=== PATIENT | male | born 1950 | race Caucasian/White ===

== ENCOUNTER → 2017-12-06 15:01 | Outpatient (CLI) | payer MEDICARE, OTHER, SELFPAY ==
--- NOTE | 2017-12-06 15:05 | DI.RAD.S_ITS ---
PROCEDURE: XR KNEE LT 3V INDICATIONS: knee pain after trauma TECHNIQUE: 3 views of the knee were acquired. COMPARISON: [facility], CR, XR KNEE RT 3V, 12/06/2017, 14:43. FINDINGS: Bones: No fractures or dislocations. No suspicious bony lesions. Medial compartment joint space narrowing. Marginal spurs of the posterior patella. Soft tissues: No joint effusion. There is an oval calcified density posterior to the tibial plateau, potentially intracapsular. IMPRESSION: 1. No joint effusion or fracture deformity. 2. 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 Possible posterior loose body. Dictated by: Wyatt Reyes M.D. on 12/06/2017 at 15:49 Approved by: Wyatt Reyes M.D. on 12/06/2017 at 15:51
--- NOTE | 2017-12-06 15:05 | DI.RAD.S_ITS ---
PROCEDURE: XR KNEE RT 3V INDICATIONS: knee pain, no trauma TECHNIQUE: 3 views of the knee were acquired. COMPARISON: None. FINDINGS: Bones: No fractures or dislocations. No suspicious bony lesions. Medial compartment disc space narrowing. Degenerative marginal bone spurs posterior patella. Soft tissues: No joint effusion. No suspicious soft tissue calcifications. IMPRESSION: 1. No joint effusion or fracture deformity. 2. Degenerative joint disease femoral patellar and medial compartments. Dictated by: Wyatt Reyes M.D. on 12/06/2017 at 15:47 Approved by: Wyatt Reyes M.D. on 12/06/2017 at 15:49
== END ==
PROVIDERS: PCP Family Medicine; Visit Provider Family Medicine
DX: M17.0 Bilateral primary osteoarthritis of knee (principal); M25.562 Pain in left knee; M25.561 Pain in right knee
CPT/HCPCS: 73562

== ENCOUNTER 2017-12-30 15:15 | Emergency (ER) | payer MEDICARE, OTHER, SELFPAY ==
--- NOTE | 2017-12-30 15:20 | DI.CT.S_ITS ---
PROCEDURE: CT HEAD/BRAIN WO CON INDICATIONS: fall, hit head, on coumadin TECHNIQUE: Noncontrast 4.5 mm thick angled axial sections acquired from the foramen magnum to the vertex, with coronal and sagittal reformats. For radiation dose reduction, the following was used: automated exposure control, adjustment of mA and/or kV according to patient size. COMPARISON: None. FINDINGS: Image quality: Excellent. CSF spaces: Basal cisterns are patent. No extra-axial fluid collections. The ventricles are symmetric in size and shape. Brain: No intracranial bleeds or masses. There is cerebral volume loss for age, with resultant ventricular and sulcal prominence. There are periventricular and deep white matter chronic small vessel ischemic changes. There is intracranial internal carotid artery atherosclerosis. Skull and face: Calvarium and visualized facial bones appear intact, without suspicious lesions. Sinuses: Visualized sinuses and mastoids are clear. IMPRESSION: No acute intracranial abnormality. Dictated by: Cele Rod M.D. on 12/30/2017 at 15:42 Approved by: Cele Rod M.D. on 12/30/2017 at 15:43
[2017-12-30 15:22] VITALS: BP 177/84; PULSE 63; RESP 14; TEMP 36.7; O2SAT 100; BMI 32.7
[2017-12-30 16:01] LABS: Hemoglobin 15.2 g/dL (13.5-17.5); Mean Corpuscular HGB Conc 34.6 % (30-36); Mean Corpuscular Hemoglobin 30.6 PG (26-34); Mean Corpuscular Volume 88.4 fL (80-100); Platelet Count 135 X10^3/uL (150-400); Red Blood Cell Count 4.97 X10^6/uL (4.5-5.9); Red Cell Distribution Width 13.5 % (11.6-14.8); White Blood Cell Count 7.2 X10^3/uL (4.5-11.0)
[2017-12-30 16:11] LABS: INR 2.8 (0.9-1.3); Prothrombin Time 30.6 SECONDS (10.1-12.7)
[2017-12-30 16:14] LABS: Alanine Aminotransferase 43 IU/L (21-72); Albumin Globulin Ratio 1.8 (1.0-2.8); Alkaline Phosphatase 78 U/L (38-126); Aspartate Aminotransferase 26 IU/L (17-59); BUN Creatinine Ratio 27.8 (6-22); Bilirubin Total 0.8 mg/dL (0.2-1.3); Blood Urea Nitrogen 25 mg/dL (9-20); Calcium 9.1 mg/dL (8.4-10.2); Carbon Dioxide 32 mmol/L (22-32); Chloride 106 mmol/L (98-107); Estimated Glomerular Filt Rate > 60.0 mL/min (>60); Globulin 2.2 g/dL (1.7-4.1); Glucose 161 mg/dL (80-110); HEMOLYSIS < 15 (0-50); Potassium 4.6 mmol/L (3.4-5.1); Sodium 143 mmol/L (137-145); Total Protein 6.2 g/dL (6.3-8.2)
[2017-12-30 16:33] VITALS: BP 143/85; PULSE 63; RESP 14; O2SAT 100
[2017-12-30] MEDS: TET,DIPH,PERTUSS(ACELL),VAC/PF 0.5 ML SYRINGE IM (16:42)
--- NOTE | 2017-12-30 16:48 | ED.FALL ---
HPI - Fall <Sola Guillermo PA-C - Last Filed: 12/30/17 21:46> General Chief Complaint: Trauma Stated Complaint: Head injury, laceration, fall. 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 He had a wound there that has been bleeding quite profusely. He states he saw stars briefly, but did not pass out. He denies any headache currently but did have some initially, vision change, nausea, or vomiting. States he has been walking and talking normally afterwards. He denies any other pain or injury. His states that his head was bleeding profusely initially and she could not tell where, so he was transported here by ambulance Related Data Home Medications Medication Instructions Recorded Confirmed losartan [Cozaar] 100 mg PO QDAY #0 02/12/16 11/30/17 carvedilol [Coreg] 3.125 mg PO BID #180 07/25/17 11/30/17 Previous Rx's Medication Instructions Recorded atorvastatin [Lipitor] 10 mg PO HS #30 tab 02/13/16 warfarin 5 mg tablet 5 mg PO SEE INSTRUCTIONS #30 tab 10/26/17 sildenafil (antihypertensive) 20 20 mg PO DAILY PRN #10 tab 11/30/17 mg tablet tamsulosin 0.4 mg capsule 0.4 mg PO DAILY #90 cap 11/30/17 acetaminophen-codeine 1 tab PO Q4-6H PRN #5 tab 12/30/17 Allergies Allergy/AdvReac Type Severity Reaction Status Date / Time venom-honey bee Allergy Unknown Verified 12/30/17 15:26 [BEE VENOM (HONEY BEE)] lisinopril [LISINOPRIL] AdvReac Mild COUGH Verified 12/30/17 15:26 Review of Systems <Sola Guillermo PA-C - Last Filed: 12/30/17 21:46> Review of Systems All systems reviewed & are unremarkable except as noted in HPI and below Exam <Sola Guillermo PA-C - Last Filed: 12/30/17 21:46> Narrative Exam Narrative: GENERAL APPEARANCE: Patient sitting comfortably, in no distress. HEENT: PERRL, EOMI NECK: Supple LUNGS: Clear to auscultation bilaterally. HEART: Rate and rhythm regular without murmur, normal S1 and S2, no S3 or S4. NEUROLOGIC: Alert and oriented, normal speech and coordination. MUSCULOSKELETAL: Full Csp AROM, no TTP DERMATOLOGIC: L. restorationist there is a 4cm slightly jagged, curved lac, 4mm maximal depth, 0-3mm gap, bleeding from the rostral portion. No other wounds, no eccymoses visualized Initial Vital Signs Initial Vital Signs: Vital Signs Temperature 98.1 F 12/30/17 15:22 Pulse Rate 63 12/30/17 15:22 Respiratory Rate 14 12/30/17 15:22 Blood Pressure 177/84 H 12/30/17 15:22 Pulse Oximetry 100 12/30/17 15:22 <Tyler Resendiz MD - Last Filed: 12/31/17 07:43> Initial Vital Signs Initial Vital Signs: Vital Signs Temperature 98.1 F 12/30/17 15:22 Pulse Rate 63 12/30/17 15:22 Respiratory Rate 14 12/30/17 15:22 Blood Pressure 177/84 H 12/30/17 15:22 Pulse Oximetry 100 12/30/17 15:22 Procedures <Sola Guillermo PA-C - Last Filed: 12/30/17 21:46> Laceration Repair Laceration 1: Site: face Side (If applicable): left Size (cm): 4 Description: linear, irregular and clean Depth: simple, single layer Local Anesthetic: lidocaine 1% and with epi Amount of anesthesia used (mL): 5 Pre-repair: wound explored, irrigated extensively and deep structures intact Skin layer closed with: nylon Size (cm): 5-0 Number of sutures: 8 Technique: simple, interrupted Course <REINA Valdes Last Filed: 12/30/17 21:46> Orders Ordered: Discontinued Medications Diphtheria/Tetanus/Acell Pertussis (Adacel) 0.5 ml IM .ONCE ONE Stop: 12/30/17 15:22 Last Admin: 12/30/17 16:42 Dose: 0.5 ml Vital Signs - 8 hr 12/30/17 15:22 12/30/17 16:33 12/30/17 18:33 Temperature 98.1 F 97.9 F Pulse Rate 63 63 59 L Respiratory Rate 14 14 18 Blood Pressure 177/84 H 141/86 H Blood Pressure [Left Arm] 143/85 H Pulse Oximetry 100 100 100 <Tyler Resendiz MD - Last Filed: 12/31/17 07:43> Orders Ordered: Discontinued Medications Diphtheria/Tetanus/Acell Pertussis (Adacel) 0.5 ml IM .ONCE ONE Stop: 12/30/17 15:22 Last Admin: 12/30/17 16:42 Dose: 0.5 ml Vital Signs - 8 hr 12/30/17 15:22 12/30/17 16:33 12/30/17 18:33 Temperature 98.1 F 97.9 F Pulse Rate 63 63 59 L Respiratory Rate 14 14 18 Blood Pressure 177/84 H 141/86 H Blood Pressure [Left Arm] 143/85 H Pulse Oximetry 100 100 100 MDM - Fall <Sola Guillermo PA-C - Last Filed: 12/30/17 21:46> Lab Data Result diagrams: 12/30/17 15:50 12/30/17 15:50 Lab Results 12/30/17 12/30/17 12/30/17 Range/Units 15:50 15:50 15:50 WBC 7.2 (4.5-11.0) X10^3/uL RBC 4.97 (4.5-5.9) X10^6/uL Hgb 15.2 (13.5-17.5) g/dL Hct 44.0 (41-53) % MCV 88.4 (80-100) fL MCH 30.6 (26-34) PG MCHC 34.6 (30-36) % RDW 13.5 (11.6-14.8) % Plt Count 135 L (150-400) X10^3/uL Total Counted 100 Seg Neutrophils % 74.0 H (38-70) % Band Neutrophils % 0.0 L (3-7) % Lymphocytes % (Manual) 16.0 L (25-45) % Monocytes % (Manual) 6.0 (2-11) % Eosinophils % (Manual) 4.0 (2-4) % Basophils % (Manual) 0.0 (0-1) % Neutrophils # (Manual) 5328 (2885-5414) /uL RBC Morphology Normal morphology PT 30.6 H (10.1-12.7) SECONDS INR 2.8 H (0.9-1.3) Sodium 143 (137-145) mmol/L Potassium 4.6 (3.4-5.1) mmol/L Chloride 106 (98-107) mmol/L Carbon Dioxide 32 (22-32) mmol/L BUN 25 H (9-20) mg/dL Creatinine 0.90 (0.66-1.25) mg/dL Estimated GFR > 60.0 (>60) mL/min BUN/Creatinine Ratio 27.8 H (6-22) Glucose 161 H (80-110) mg/dL Calcium 9.1 (8.4-10.2) mg/dL Total Bilirubin 0.8 (0.2-1.3) mg/dL AST 26 (17-59) IU/L ALT 43 (21-72) IU/L Alkaline Phosphatase 78 (38-126) U/L Total Protein 6.2 L (6.3-8.2) g/dL Albumin 4.0 (3.5-5.0) g/dL Globulin 2.2 (1.7-4.1) g/dL Albumin/Globulin Ratio 1.8 (1.0-2.8) Imaging Data CT scan - head: Radiologist's impression: [place] [address] CT Scan Report Signed Patient: Ravindra Wise MR#: [id number] : 1950 Acct:[id number] Age/Sex: 67 / M Date of Service: 12/30/17 Loc: ED Accession Number: [id number] Procedure: CT head/brain wo con Ordering Provider: Tyler Resendiz M.D. PROCEDURE: CT HEAD/BRAIN WO CON INDICATIONS: fall, hit head, on coumadin TECHNIQUE: Noncontrast 4.5 mm thick angled axial sections acquired from the foramen magnum to the vertex, with coronal and sagittal reformats. For radiation dose reduction, the following was used: automated exposure control, adjustment of mA and/or kV according to patient size. COMPARISON: None. FINDINGS: Image quality: Excellent. CSF spaces: Basal cisterns are patent. No extra-axial fluid collections. The ventricles are symmetric in size and shape. Brain: No intracranial bleeds or masses. There is cerebral volume loss for age, with resultant ventricular and sulcal prominence. There are periventricular and deep white matter chronic small vessel ischemic changes. There is intracranial internal carotid artery atherosclerosis. Skull and face: Calvarium and visualized facial bones appear intact, without suspicious lesions. Sinuses: Visualized sinuses and mastoids are clear. IMPRESSION: No acute intracranial abnormality. Dictated by: Cele Rod M.D. on 12/30/2017 at 15:42 Approved by: Cele Rod M.D. on 12/30/2017 at 15:43 ECG Data Attestation: I personally reviewed and interpreted this ECG as follows: (sinus diaz, rate 56, borderline LAD) <Tyler Resendiz MD - Last Filed: 12/31/17 07:43> Lab Data Lab Results 12/30/17 12/30/17 12/30/17 Range/Units 15:50 15:50 15:50 WBC 7.2 (4.5-11.0) X10^3/uL RBC 4.97 (4.5-5.9) X10^6/uL Hgb 15.2 (13.5-17.5) g/dL Hct 44.0 (41-53) % MCV 88.4 (80-100) fL MCH 30.6 (26-34) PG MCHC 34.6 (30-36) % RDW 13.5 (11.6-14.8) % Plt Count 135 L (150-400) X10^3/uL Total Counted 100 Seg Neutrophils % 74.0 H (38-70) % Band Neutrophils % 0.0 L (3-7) % Lymphocytes % (Manual) 16.0 L (25-45) % Monocytes % (Manual) 6.0 (2-11) % Eosinophils % (Manual) 4.0 (2-4) % Basophils % (Manual) 0.0 (0-1) % Neutrophils # (Manual) 5328 (1833-9657) /uL RBC Morphology Normal morphology PT 30.6 H (10.1-12.7) SECONDS INR 2.8 H (0.9-1.3) Sodium 143 (137-145) mmol/L Potassium 4.6 (3.4-5.1) mmol/L Chloride 106 (98-107) mmol/L Carbon Dioxide 32 (22-32) mmol/L BUN 25 H (9-20) mg/dL Creatinine 0.90 (0.66-1.25) mg/dL Estimated GFR > 60.0 (>60) mL/min BUN/Creatinine Ratio 27.8 H (6-22) Glucose 161 H (80-110) mg/dL Calcium 9.1 (8.4-10.2) mg/dL Total Bilirubin 0.8 (0.2-1.3) mg/dL AST 26 (17-59) IU/L ALT 43 (21-72) IU/L Alkaline Phosphatase 78 (38-126) U/L Total Protein 6.2 L (6.3-8.2) g/dL Albumin 4.0 (3.5-5.0) g/dL Globulin 2.2 (1.7-4.1) g/dL Albumin/Globulin Ratio 1.8 (1.0-2.8) Discharge Plan Departure Patient Disposition: Home Clinical Impression: Laceration of scalp, Concussion without loss of consciousness, initial encounter Discharge Date/Time: 12/30/17 18:35 Interventions: ED Discharge Assessment Last Done: 12/30/17 18:33 Instructions: DI for Concussion, DI for Laceration Repair Activity Restrictions/Additional Instructions: Please keep your sutures clean and dry, you may briefly rinse them if showering. You should return if any acutely worsening symptoms, or new symptoms such as vomiting, worsening headache, vision change or confusion as we talked about. You may have a mild concussion even though you did not lose consciousness, so I have given you instructions for this. You can take Tylenol if needed for headache, or Tylenol with codeine if more severe this evening. Do not drive if you take that as it may make you sleepy. If you are feeling normal, you can resume your usual activites, but if you have headache, you should take it easy and be more gradual about this. Prescriptions: New acetaminophen-codeine 300-30 mg tablet 1 tab PO Q4-6H PRN (Reason: pain) Qty: 5 RF: 0 No Action sildenafil (antihypertensive) 20 mg tablet 20 mg PO DAILY PRN (Reason: sexual activity) Qty: 10 RF: 0 tamsulosin 0.4 mg capsule,extended release 24hr 0.4 mg PO DAILY Qty: 90 RF: 1 losartan [Cozaar] 100 MG tablet 100 mg PO QDAY Qty: 0 RF: 0 atorvastatin [Lipitor] 10 MG tablet 10 mg PO HS Qty: 30 RF: 0 carvedilol [Coreg] 3.125 MG tablet 3.125 mg PO BID Qty: 180 RF: 0 warfarin [Coumadin] 5 mg tablet 5 mg PO SEE INSTRUCTIONS Qty: 30 RF: 0 Referrals: Max Amador MD [Primary Care Provider] - <Tyler Resendiz MD - Last Filed: 12/31/17 07:43> Sign Out Provider Sign Out Attestation: The PA/PRESS MAINTAINER functioned independently for the care of this pt, I was available, but not asked to participate in care. I am unable to determine appropriateness of management without personally examining the pt.
[2017-12-30 17:48] LABS: Neutrophils Absolute Manual 5328 /uL (3000-5900); Total Cells Counted 100
[2017-12-30 17:49] LABS: RBC Morphology Normal Morphology
[2017-12-30 18:33] VITALS: BP 141/86; PULSE 59; RESP 18; TEMP 36.6; O2SAT 100
== END 2017-12-30 18:35 | disposition home or self-care (01) ==
PROVIDERS: Emergency Medicine; Emergency Provider Internal Medicine; PCP Family Medicine
DX: S01.81XA Laceration without foreign body of other part of head, initial encounter (principal); S06.0X0A Concussion without loss of consciousness, initial encounter; W01.198A Fall on same level from slipping, tripping and stumbling with subsequent striking against other object, initial encounter
CPT/HCPCS: 12013; 36415; 70450; 80053; 85025; 85610; 90471; 93005; 93010; 99283; 99285; 90715

== ENCOUNTER 2018-01-06 18:13 | Emergency (ER) | payer MEDICARE, OTHER, SELFPAY ==
[2018-01-06] VITALS (8 sets, daily range): BP systolic 111–128; BP diastolic 76–87; PULSE 80–140; RESP 12–21; TEMP 36.7; O2SAT 96–100; BMI 32.3
--- NOTE | 2018-01-06 18:23 | ED.ARRPALP ---
HPI - Arrhythmia/Palpitations General Chief Complaint: Arrhythmia/Palpitations Stated Complaint: AFIB Time Seen by Provider: 01/06/18 18:23 Source: patient and family Mode of arrival: ambulatory Limitations: no limitations History of Present Illness HPI narrative: 67-year-old male with history of AFib (on Coumadin) presents to the emergency department with his in the chief complaint of sudden onset of rapid AFib 30 min prior to arrival. He admits to palpitations and some shortness of breath with dizziness but denies any profound shortness of breath or chest. He has been cardioverted 3 times in the past 3 months. He has been on Coumadin for the past few months and denies any dosing change or missed doses. He sees Cardiology in [place] complaint: rapid heart beat, heart racing, palpitations, irregular heart beat and atrial fibrillation Onset (ago): minute(s) Duration: constant Severity: moderate Context: occurred during rest Arrhythmia history: atrial fibrillation Associated symptoms: shortness of breath Related Data Home Medications Medication Instructions Recorded Confirmed losartan [Cozaar] 100 mg PO QDAY #0 02/12/16 11/30/17 carvedilol [Coreg] 3.125 mg PO BID #180 07/25/17 11/30/17 Previous Rx's Medication Instructions Recorded atorvastatin [Lipitor] 10 mg PO HS #30 tab 02/13/16 sildenafil (antihypertensive) 20 20 mg PO DAILY PRN #10 tab 11/30/17 mg tablet tamsulosin 0.4 mg capsule 0.4 mg PO DAILY #90 cap 11/30/17 acetaminophen-codeine 1 tab PO Q4-6H PRN #5 tab 12/30/17 warfarin 5 mg tablet 5 mg PO SEE INSTRUCTIONS #30 tab 01/05/18 Allergies Allergy/AdvReac Type Severity Reaction Status Date / Time venom-honey bee Allergy Unknown Verified 12/30/17 15:26 [BEE VENOM (HONEY BEE)] lisinopril [LISINOPRIL] AdvReac Mild COUGH Verified 12/30/17 15:26 Review of Systems Review of Systems All systems reviewed & are unremarkable except as noted in HPI and below Constitutional Denies chills, Reports fatigue, Denies fever(s), Denies lethargy and Reports weakness Eyes Denies change in vision, Denies eye discharge, Denies irritation and Denies loss of vision ENT Ears, Nose, Mouth, and Throat: Denies change in voice, Denies neck pain and Denies sore throat Cardiovascular Denies chest pain, Reports irregular heart rhythm, Reports lightheadedness, Denies palpitations, Reports dyspnea, Denies dyspnea on exertion and Denies orthopnea Respiratory Denies cough, Reports dyspnea, Denies dyspnea on exertion and Denies wheezing Gastrointestinal Gastrointestinal: Denies abdominal pain, Denies change in bowel habits, Denies diarrhea, Denies nausea and Denies vomiting Genitourinary Denies hematuria, Denies flank pain, Denies urinary incontinence and Denies urinary urgency Musculoskeletal Denies neck pain Integumentary/Breasts Denies pruritus, Denies erythema, Denies rash and Denies wounds Neurologic Denies confusion, Denies loss of vision and Reports weakness Psychiatric Denies anxiety, Denies confusion, Denies depression, Denies homicidal ideation and Denies suicidal ideation Endocrine Reports fatigue and Denies palpitations Hematologic/Lymphatic Denies easy bruising Allergic/Immunologic Denies wheezing [facility] Medical History Bilateral knee pain (Chronic) BPH (benign prostatic hyperplasia) (Chronic) Erectile dysfunction (Chronic) Tinnitus of both ears (Chronic Unknown) Cardiomyopathy (Chronic Unknown) Atrial fibrillation (Chronic Unknown) Mitral valve regurgitation (Resolved Unknown) Colon polyps (Resolved Unknown) Hyperlipemia (Chronic Unknown) Hypertension (Chronic Unknown) Sleep apnea (Chronic Unknown) Surgical History Hx of right knee surgery (Resolved 12/2009) Hx of mitral valve repair (Resolved 04/2008) Family History Father No problems noted. Mother Cancer Diabetes mellitus Grandfather Diabetes mellitus Grandmother No problems noted. Grandfather No problems noted. Social History Smoking Status: Never smoker alcohol intake: never substance use type: does not use Exam Narrative Exam Narrative: 67-year-old male resting in room but obviously uncomfortable and in mild distress Initial Vital Signs Initial Vital Signs: Vital Signs Temperature 98.1 F 01/06/18 18:23 Pulse Rate 134 H 01/06/18 18:23 Respiratory Rate 21 01/06/18 18:23 Blood Pressure 118/80 01/06/18 18:23 Pulse Oximetry 97 01/06/18 18:23 Const General: cooperative, well developed and in distress Nutritional Appearance: well nourished Orientation: alert, awake, oriented x3 and not confused [facility] Head: normocephalic and atraumatic Ears: external ears normal and TM's normal bilaterally Nose: external nose normal and No nasal discharge Face and sinus: sinuses nontender, face symmetric, no sinus tenderness and No dry mucous membranes Mouth: oral mucosae normal and moist mucous membranes Teeth and gingiva: dentition normal Throat: tonsils normal and uvula midline Chest Chest: normal inspection of the chest Resp Effort & Inspection: normal respiratory effort, able to speak in complete sentences, no respiratory distress and no use of accessory muscles Auscultation: clear to auscultation bilaterally, no rales, no rhonchi and no wheezes Cardio Rate: tachycardic Rhythm: abnormal rhythm GI Inspection: non-distended Palpation: soft, no hepatosplenomegaly, No guarding, No pulsatile mass and No tender Auscultation: normal bowel sounds Back/Spine/Pelvis Back: No CVA tenderness Cervical Spine: cervical ROM normal and No pain with cervical ROM Thoracic/Lumbar Spine: thoracic and lumbar spine normal to inspection Skin General: no rashes or lesions noted, No jaundice and No petechiae Neuro General: alert, oriented x3, gait normal and no focal motor deficits Speech: speech normal Psych Appearance: well kempt Mental Status: mental status grossly normal Attitude: cooperative Thought Content: normal and suicidality Judgment: judgment good Procedures Procedural Sedation Patient Age: Patient is 5yrs or older Indication: cardioversion ASA Class: II Mallampati Airway Classification: Class II Preparation: personnel monitor applied, pulse oximeter, capnometry used, supplemental O2 applied, suction/airway equipment at bedside and IV secured IV Propofol dose (mg): 60 Time of Sedation (Min): 10 ED Sedation Level: Moderate (Concious) Patient Tolerated Procedure: Well Complications: none Additional Comments: Electrical Cardioversion: Indication: [Rapid AFib] A time-out was completed verifying correct patient, procedure and site. Informed consent was obtained. The patient was judged to be a satisfactory for the procedure. An intravenous access was established. Monitoring equipment was set-up. The resuscitative cart was nearby. Anesthesia: The patient was given an intravenous dose of [propofol 60 mg IVP] After satisfactory anesthesia was achieved, the procedure was performed. The paddles were placed in the standard position. Synchronized, direct current electrical cardioversion was performed with [200 joules which converted to a sinus rhythm for about 1 min before returning to AFib. He was administered a 2nd cardioversion at 200 joules which resolved the AFib in the family]. The patient tolerated the procedure well. There were no complications. Post Procedure: Successful cardioversion [was achieved.] Post procedure cardiac monitoring demonstrated []. Course Orders Ordered: ED Orders 01/06/18 18:20 EKG-12 Lead Routine 01/06/18 18:30 Basic Metabolic Panel Stat Complete Blood Count AUTO DIFF Stat Magnesium Stat Prothrombin Time INR Stat Thyroid Stimulating Hormone Stat Troponin & CK Cardiac Panel Stat 01/06/18 18:49 EKG-12 Lead Stat Discontinued Medications Sodium Chloride (Normal Saline 0.9%) 1,000 mls @ 150 mls/hr IV CONT RADHA Last Infusion: 01/06/18 20:17 Dose: 0 mls/hr Admin: 01/06/18 19:39 Dose: 150 mls/hr Propofol (Diprivan) 60 mg IV NOW ONE Stop: 01/06/18 19:38 Last Admin: 01/06/18 19:39 Dose: 60 mg Vital Signs - 8 hr 01/06/18 19:00 01/06/18 19:10 01/06/18 19:15 Pulse Rate 124 H 115 H 82 Respiratory Rate 12 Blood Pressure [Left Arm] 111/76 116/82 H 120/82 H Pulse Oximetry 100 01/06/18 19:20 01/06/18 19:30 01/06/18 19:43 Pulse Rate 81 80 88 Respiratory Rate 12 13 16 Blood Pressure [Left Arm] 128/86 H 125/87 H Pulse Oximetry 100 99 MDM - Arrhythmia/Palpitations Lab Data Result diagrams: 01/06/18 18:30 01/06/18 18:30 Lab Results 01/06/18 01/06/18 01/06/18 Range/Units 18:30 18:30 18:30 WBC 6.8 (4.5-11.0) X10^3/uL RBC 5.21 (4.5-5.9) X10^6/uL Hgb 15.8 (13.5-17.5) g/dL Hct 45.9 (41-53) % MCV 88.1 (80-100) fL MCH 30.3 (26-34) PG MCHC 34.3 (30-36) % RDW 13.6 (11.6-14.8) % Plt Count 151 (150-400) X10^3/uL Neut % (Auto) 64.3 (50-75) % Lymph % (Auto) 24.3 L (25-40) % [place] % (Auto) 8.8 (3-14) % Eos % (Auto) 1.8 L (2-4) % Baso % (Auto) 0.8 (0-2) % Neut # (Auto) 4400 (9291-0543) /uL PT 26.2 H (10.1-12.7) SECONDS INR 2.4 H (0.9-1.3) Sodium 144 (137-145) mmol/L Potassium 4.1 (3.4-5.1) mmol/L Chloride 107 (98-107) mmol/L Carbon Dioxide 27 (22-32) mmol/L BUN 28 H (9-20) mg/dL Creatinine 0.80 (0.66-1.25) mg/dL Estimated GFR > 60.0 (>60) mL/min BUN/Creatinine Ratio 35.0 H (6-22) Glucose 122 H (80-110) mg/dL Calcium 9.4 (8.4-10.2) mg/dL Magnesium 2.1 (1.6-2.3) mg/dL Total Creatine Kinase 176 H (55-170) U/L CK-MB (CK-2) 3.40 H (<2.37) ng/mL CK-MB (CK-2) Rel Index 1.9 (1.5-5.0) % Troponin I < 0.012 (0.01-0.034) ng/mL TSH (0.47-4.68) uIU/mL 01/06/18 Range/Units 18:30 WBC (4.5-11.0) X10^3/uL RBC (4.5-5.9) X10^6/uL Hgb (13.5-17.5) g/dL Hct (41-53) % MCV (80-100) fL MCH (26-34) PG MCHC (30-36) % RDW (11.6-14.8) % Plt Count (150-400) X10^3/uL Neut % (Auto) (50-75) % Lymph % (Auto) (25-40) % [place] % (Auto) (3-14) % Eos % (Auto) (2-4) % Baso % (Auto) (0-2) % Neut # (Auto) (7213-7912) /uL PT (10.1-12.7) SECONDS INR (0.9-1.3) Sodium (137-145) mmol/L Potassium (3.4-5.1) mmol/L Chloride (98-107) mmol/L Carbon Dioxide (22-32) mmol/L BUN (9-20) mg/dL Creatinine (0.66-1.25) mg/dL Estimated GFR (>60) mL/min BUN/Creatinine Ratio (6-22) Glucose (80-110) mg/dL Calcium (8.4-10.2) mg/dL Magnesium (1.6-2.3) mg/dL Total Creatine Kinase (55-170) U/L CK-MB (CK-2) (<2.37) ng/mL CK-MB (CK-2) Rel Index (1.5-5.0) % Troponin I (0.01-0.034) ng/mL TSH 2.94 (0.47-4.68) uIU/mL Discharge Plan Departure Patient Disposition: Home Clinical Impression: Atrial fibrillation with rapid ventricular response, Encounter for removal of sutures Discharge Date/Time: 01/06/18 20:18 Interventions: ED Discharge Assessment Last Done: 01/06/18 19:30 Instructions: DI for Atrial Fibrillation Activity Restrictions/Additional Instructions: *You have been diagnosed with [ atrial fibrillation with rapid response status post cardioversion, suture removal ] *What to do: *Take medications as directed *Follow up with your cultural centre manager in 2-3 days, call for an appointment. Let them know you were seen in the Emergency Department and that we ask that you be seen in follow up *Return to ER if you should have any new, worsening or concerning symptoms, such as [ recurrence of rapid atrial fibrillation, chest pain, shortness of breath, the sense of passing out or blacking out, other bothersome symptoms] Prescriptions: No Action sildenafil (antihypertensive) 20 mg tablet 20 mg PO DAILY PRN (Reason: sexual activity) Qty: 10 RF: 0 tamsulosin 0.4 mg capsule,extended release 24hr 0.4 mg PO DAILY Qty: 90 RF: 1 losartan [Cozaar] 100 MG tablet 100 mg PO QDAY Qty: 0 RF: 0 atorvastatin [Lipitor] 10 MG tablet 10 mg PO HS Qty: 30 RF: 0 carvedilol [Coreg] 3.125 MG tablet 3.125 mg PO BID Qty: 180 RF: 0 warfarin [Coumadin] 5 mg tablet 5 mg PO SEE INSTRUCTIONS Qty: 30 RF: 0 acetaminophen-codeine 300-30 mg tablet 1 tab PO Q4-6H PRN (Reason: pain) Qty: 5 RF: 0 Referrals: Max Amador MD [Primary Care Provider] - Jesús Mooney MD [Non-Staff] -
[2018-01-06 18:46] LABS: Add Manual Diff / Slide Review NO; Basophils Percent Auto 0.8 % (0-2); Eosinophils Percent Auto 1.8 % (2-4); Hematocrit 45.9 % (41-53); Hemoglobin 15.8 g/dL (13.5-17.5); Lymphocytes Percent Auto 24.3 % (25-40); Mean Corpuscular HGB Conc 34.3 % (30-36); Mean Corpuscular Hemoglobin 30.3 PG (26-34); Mean Corpuscular Volume 88.1 fL (80-100); Monocytes Percent Auto 8.8 % (3-14); Neutrophils Absolute Auto 4400 /uL (3000-5900); Neutrophils Percent Auto 64.3 % (50-75); Platelet Count 151 X10^3/uL (150-400); Red Blood Cell Count 5.21 X10^6/uL (4.5-5.9); Red Cell Distribution Width 13.6 % (11.6-14.8); White Blood Cell Count 6.8 X10^3/uL (4.5-11.0)
[2018-01-06 18:55] LABS: INR 2.4 (0.9-1.3); Prothrombin Time 26.2 SECONDS (10.1-12.7)
[2018-01-06 18:58] LABS: Blood Urea Nitrogen 28 mg/dL (9-20); Calcium 9.4 mg/dL (8.4-10.2); Carbon Dioxide 27 mmol/L (22-32); Chloride 107 mmol/L (98-107); Creatine Kinase 176 U/L (55-170); Estimated Glomerular Filt Rate > 60.0 mL/min (>60); Glucose 122 mg/dL (80-110); HEMOLYSIS < 15 (0-50); Magnesium 2.1 mg/dL (1.6-2.3); Potassium 4.1 mmol/L (3.4-5.1); Sodium 144 mmol/L (137-145)
[2018-01-06 19:13] LABS: CKMB % Relative Index 1.9 % (1.5-5.0)
[2018-01-06 19:15] LABS: Troponin I < 0.012 ng/mL (0.01-0.034)
[2018-01-06 19:29] LABS: Thyroid Stimulating Hormone 2.94 uIU/mL (0.47-4.68)
[2018-01-06] MEDS: SODIUM CHLORIDE 0.9% 1,000 ML 150 ML IV (19:39)
[2018-01-06] MEDS: PROPOFOL 200 MG/20 ML VIAL 60 MG IV (19:39)
--- NOTE | 2018-01-06 20:09 | PC.NURSE ---
cardioverion, pt cristóbal well. vs stable. cardioversion/sync x 2 at 200j, first one cardiovert to sr, only lasted a few minutes, second cardioversion. pt stated in sinus rythem, in room with this procedure per her request is an icu nurse/ grandson left room during procedure. pt awakened easily after procedure/ ekg done, pt ready for dc. let awake some more. alert. oriented and dc by 1930
== END 2018-01-06 20:18 | disposition home or self-care (01) ==
PROVIDERS: Emergency Provider Emergency Medicine; PCP Family Medicine
DX: I48.91 Unspecified atrial fibrillation (principal)
CPT/HCPCS: 80048; 82550; 82553; 83735; 84443; 84484; 85025; 85610; 92960; 93005; 93010; 93041; 94770; 96360; 99152; 99284; 99291; J2704

== ENCOUNTER 2018-09-29 06:59 | Emergency (ER) | payer MEDICARE, OTHER, SELFPAY ==
[2018-09-29 07:00] VITALS: BP 108/84; PULSE 81; PULSE 91; RESP 16; RESP 17; TEMP 36.7; O2SAT 97; O2SAT 98; BMI 32.3
--- NOTE | 2018-09-29 07:10 | ED.ARRPALP ---
HPI - Arrhythmia/Palpitations General Chief Complaint: Arrhythmia/Palpitations Stated Complaint: Afib Time Seen by Provider: 09/29/18 07:08 Source: patient, family and old records reviewed Mode of arrival: ambulatory Limitations: no limitations History of Present Illness HPI narrative: Patient is a 68-year-old male who presents with atrial fibrillation. He has a history of atrial fibrillation takes Coumadin. He says last night he has been in and out of AFib. He can usually tell when he is in AFib because he gets short of breath. Last evening he was actually extremely sweaty as well no real pain. He can feel his heart rate and it would be lower in the 80s and then he would feel it and it would be irregular and fast. He is currently in sinus rhythm on the monitor and on the EKG. However he did have a run of atrial fibrillation on the monitor show 140 lasting under 30 seconds. He says he overall does not feel well. MD complaint: rapid heart beat and skipped beats Arrhythmia history: atrial fibrillation Associated symptoms: diaphoresis Related Data Home Medications Medication Instructions Recorded Confirmed losartan [Cozaar] 100 mg PO QDAY #0 02/12/16 11/30/17 carvedilol [Coreg] 3.125 mg PO BID #180 07/25/17 11/30/17 Previous Rx's Medication Instructions Recorded atorvastatin [Lipitor] 10 mg PO HS #30 tab 02/13/16 sildenafil (antihypertensive) 20 20 mg PO DAILY PRN #10 tab 11/30/17 mg tablet acetaminophen-codeine 1 tab PO Q4-6H PRN #5 tab 12/30/17 warfarin 5 mg tablet 5 mg PO SEE INSTRUCTIONS #90 tab 07/23/18 tamsulosin 0.4 mg capsule 0.4 mg PO DAILY #90 cap 09/21/18 Allergies Allergy/AdvReac Type Severity Reaction Status Date / Time venom-honey bee Allergy Unknown Verified 12/30/17 15:26 [BEE VENOM (HONEY BEE)] lisinopril [LISINOPRIL] AdvReac Mild COUGH Verified 12/30/17 15:26 Review of Systems Review of Systems GENERAL: Denies chills, fatigue, malaise, fever, sweats, travel HEENT: Denies sinus pain, ear pain, sore throat, difficulty swallowing, neck pain RESPIRATORY: Denies dyspnea, cough, wheezing, hemoptysis, sputum. CARDIOVASCULAR: See HPI GASTROINTESTINAL: Denies nausea, vomiting, abdominal pain, diarrhea, constipation, melena. : Denies dysuria, frequency, incontinence, hematuria, urinary retention, flank pain. MUSCULOSKELETAL: Denies weakness, joint pain, or bony pain SKIN: No rash, no erythema, no pruritus NEUROLOGIC: Denies weakness, dizziness, headache, numbness, change in speech, confusion PSYCHIATRIC: No concerning psychosocial issues. 12 point review of systems is negative except for those stated above and HPI [facility] Medical History Bilateral knee pain (Chronic) BPH (benign prostatic hyperplasia) (Chronic) Erectile dysfunction (Chronic) Tinnitus of both ears (Chronic Unknown) Cardiomyopathy (Chronic Unknown) Atrial fibrillation (Chronic Unknown) Mitral valve regurgitation (Resolved Unknown) Colon polyps (Resolved Unknown) Hyperlipemia (Chronic Unknown) Hypertension (Chronic Unknown) Sleep apnea (Chronic Unknown) Surgical History Hx of right knee surgery (Resolved 12/2009) Hx of mitral valve repair (Resolved 04/2008) Family History Father No problems noted. Mother Cancer Diabetes mellitus Grandfather Diabetes mellitus Grandmother No problems noted. Grandfather No problems noted. Social History Smoking Status: Never smoker alcohol intake: never substance use type: does not use Family History Father No problems noted. Mother Cancer Diabetes mellitus Grandfather Diabetes mellitus Grandmother No problems noted. Grandfather No problems noted. Social History Smoking Status: Never smoker alcohol intake: never substance use type: does not use Exam Initial Vital Signs Initial Vital Signs: Vital Signs Temperature 98.0 F 09/29/18 07:00 Pulse Rate 91 H 09/29/18 07:00 Respiratory Rate 16 09/29/18 07:00 Blood Pressure 108/84 09/29/18 07:00 Pulse Oximetry 97 09/29/18 07:00 GENERAL: Alert male and in no acute distress. HEENT: Head atraumatic,EOMI, pupils reactive CARDIOVASCULAR: Regular rate and rhythm without murmurs, rubs or gallops. RESPIRATORY: Breath sounds equal bilaterally, no wheezes rales or rhonchi. ABDOMEN: Soft, nontender. Normoactive bowel sounds all 4 quadrants. No guarding or rebound. EXTREMITIES: Normal range of motion, no clubbing or edema. Neurovascularly intact NEUROLOGICAL: Alert and oriented x4.Normal gait and speech. Cranial nerves II through XII grossly intact. SKIN: Warm, dry, no laceration, no petechiae, no rashes or lesions. Course Orders Ordered: ED Orders 09/29/18 07:04 EKG-12 Lead Routine 09/29/18 07:15 B Type Natriuretic Peptide Stat Complete Blood Count AUTO DIFF Stat Comprehensive Metabolic Panel Stat Magnesium Stat Partial Thromboplastin Time Stat Prothrombin Time INR Stat Troponin & CK Cardiac Panel Stat 09/29/18 07:19 XR chest 1V Stat 09/29/18 08:10 EKG-12 Lead Stat Discontinued Medications Acetaminophen (Tylenol) 650 mg PO Q4HR PRN PRN Reason: As Needed for Fever/Mild Pain Last Admin: 09/29/18 09:06 Dose: 650 mg Sodium Chloride (Normal Saline 0.9%) 1,000 mls @ 1,000 mls/hr IV CONT RADHA Last Admin: 09/29/18 08:24 Dose: Not Given Sodium Chloride (Normal Saline 0.9%) 1,000 mls @ 150 mls/hr IV CONT RADHA Last Infusion: 09/29/18 09:35 Dose: 0 mls/hr Admin: 09/29/18 08:02 Dose: 150 mls/hr Nitroglycerin (Nitrostat) 0.4 mg SL NOW ONE Stop: 09/29/18 08:52 Last Admin: 09/29/18 09:02 Dose: 0.4 mg Vital Signs - 8 hr 09/29/18 07:00 09/29/18 08:00 09/29/18 09:00 Temperature 98.0 F Pulse Rate 81 78 83 Respiratory Rate 17 20 19 Blood Pressure 108/84 Blood Pressure [Left Arm] 108/84 94/67 114/83 Pulse Oximetry 98 97 97 09/29/18 09:02 09/29/18 09:09 09/29/18 09:36 Temperature Pulse Rate 78 87 76 Respiratory Rate 16 Blood Pressure 114/83 104/86 100/86 Blood Pressure [Left Arm] Pulse Oximetry 97 MDM - Arrhythmia/Palpitations Lab Data Result diagrams: 09/29/18 07:15 09/29/18 07:15 Lab Results 09/29/18 09/29/18 09/29/18 Range/Units 07:15 07:15 07:15 WBC 10.1 (4.5-11.0) X10^3/uL RBC 5.46 (4.5-5.9) X10^6/uL Hgb 16.6 (13.5-17.5) g/dL Hct 47.4 (41-53) % MCV 86.8 (80-100) fL MCH 30.5 (26-34) PG MCHC 35.1 (30-36) % RDW 13.8 (11.6-14.8) % Plt Count 155 (150-400) X10^3/uL Neut % (Auto) 70.4 (50-75) % Lymph % (Auto) 18.8 L (25-40) % [place] % (Auto) 9.2 (3-14) % Eos % (Auto) 0.9 L (2-4) % Baso % (Auto) 0.7 (0-2) % Neut # (Auto) 7100 H (3072-2167) /uL Lymph # (Auto) 1900 (0860-4272) /uL [place] # (Auto) 900 (0-900) /uL Eos # (Auto) 100 (0-450) /uL Baso # (Auto) 100 (0-100) /uL PT 27.4 H (10.1-12.7) SECONDS INR 2.3 H (0.9-1.3) APTT 44 H (26.4-36.2) SECONDS Sodium 138 (137-145) mmol/L Potassium 4.1 (3.4-5.1) mmol/L Chloride 103 (98-107) mmol/L Carbon Dioxide 24 (22-32) mmol/L BUN 18 (9-20) mg/dL Creatinine 0.70 (0.66-1.25) mg/dL Estimated GFR > 60.0 (>60) mL/min BUN/Creatinine Ratio 25.7 H (6-22) Glucose 159 H (80-110) mg/dL Calcium 9.2 (8.4-10.2) mg/dL Magnesium 2.1 (1.6-2.3) mg/dL Total Bilirubin 1.5 H (0.2-1.3) mg/dL AST 27 (17-59) IU/L ALT 36 (21-72) IU/L Alkaline Phosphatase 73 (38-126) U/L Total Creatine Kinase 169 (55-170) U/L CK-MB (CK-2) 12.30 H (<2.37) ng/mL CK-MB (CK-2) Rel Index 7.3 H* (1.5-5.0) % Troponin I 1.760 H* (0.01-0.034) ng/mL B-Natriuretic Peptide (<100) Total Protein 6.6 (6.3-8.2) g/dL Albumin 4.2 (3.5-5.0) g/dL Globulin 2.4 (1.7-4.1) g/dL Albumin/Globulin Ratio 1.8 (1.0-2.8) 09/29/18 Range/Units 07:15 WBC (4.5-11.0) X10^3/uL RBC (4.5-5.9) X10^6/uL Hgb (13.5-17.5) g/dL Hct (41-53) % MCV (80-100) fL MCH (26-34) PG MCHC (30-36) % RDW (11.6-14.8) % Plt Count (150-400) X10^3/uL Neut % (Auto) (50-75) % Lymph % (Auto) (25-40) % [place] % (Auto) (3-14) % Eos % (Auto) (2-4) % Baso % (Auto) (0-2) % Neut # (Auto) (0946-6956) /uL Lymph # (Auto) (2869-9783) /uL [place] # (Auto) (0-900) /uL Eos # (Auto) (0-450) /uL Baso # (Auto) (0-100) /uL PT (10.1-12.7) SECONDS INR (0.9-1.3) APTT (26.4-36.2) SECONDS Sodium (137-145) mmol/L Potassium (3.4-5.1) mmol/L Chloride (98-107) mmol/L Carbon Dioxide (22-32) mmol/L BUN (9-20) mg/dL Creatinine (0.66-1.25) mg/dL Estimated GFR (>60) mL/min BUN/Creatinine Ratio (6-22) Glucose (80-110) mg/dL Calcium (8.4-10.2) mg/dL Magnesium (1.6-2.3) mg/dL Total Bilirubin (0.2-1.3) mg/dL AST (17-59) IU/L ALT (21-72) IU/L Alkaline Phosphatase (38-126) U/L Total Creatine Kinase (55-170) U/L CK-MB (CK-2) (<2.37) ng/mL CK-MB (CK-2) Rel Index (1.5-5.0) % Troponin I (0.01-0.034) ng/mL B-Natriuretic Peptide 349 H (<100) Total Protein (6.3-8.2) g/dL Albumin (3.5-5.0) g/dL Globulin (1.7-4.1) g/dL Albumin/Globulin Ratio (1.0-2.8) Imaging Data Chest x-ray: Radiologist's impression: PROCEDURE: XR CHEST 1V INDICATIONS: chest pain TECHNIQUE: One view of the chest was acquired. COMPARISON: [facility], CHEST 1 VIEW, 02/12/2016, 11:57. FINDINGS: Surgical changes and devices: Postoperative changes of the chest are present related to median sternotomy of prior heart valve replacement. Lungs and pleura: Lungs are clear. No pleural effusions or pneumothorax. Mediastinum: Mediastinal contours appear normal. Heart size is normal. Bones and chest wall: No suspicious bony lesions. Degenerative changes of the spine and shoulders are not well characterized. Overlying soft tissues appear unremarkable. IMPRESSION: Stable chest. No acute cardiopulmonary process is suspected. Dictated by: Solo Cunningham M.D. on 09/29/2018 at 6:44 ECG Data Attestation: I personally reviewed and interpreted this ECG as follows: Prior ECG tracings: available for review Interpretation: EKG 1. Sinus rhythm rate [address] changes and no T-wave inversion Q-wave noted in septal leads. EKG 2. Sinus rhythm rate [address] changes similar to prior. MDM Narrative Medical decision making narrative: Patient has only had 1 run of atrial fibrillation which lasted under 30 seconds. He has been in sinus rhythm since then. He has been complaining of some shortness of breath but overall chest pain-free with a normal oxygen level. Troponin 1.76 which is positive. 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 Mooney in [place], unfortunately at [place] and [facility] do not have any beds. Patient's is requesting not to go to [facility] which does have beds.. Kia Rebollar, hospitalist has been updated patient's symptoms and test results. Patient said he had some mild chest tightness but not pain. He was given 1 nitroglycerin, but it seemed to give more of a headache. Patient is already anticoagulated on Coumadin INR 2.9 today. No recommendations for any further treatment at this time. Critical Care Time Critical Care Time: Yes Total Critical Care Time: 30 Attestation: The high probability of a clinically significant, sudden or life threatening deterioration of the [cardiovascular] system(s) required my full and direct attention, intervention and personal management. The aggregate critical care time was 30 minutes. This time is in addition to time spent performing reported procedures but includes the following: [x] Data Review and interpretation [x] Patient assessment and monitoring of vital signs [x] Documentation [x] Medication orders and management Discharge Plan Departure Patient Disposition: [facility] Clinical Impression: Non-ST elevated myocardial infarction Discharge Date/Time: 09/29/18 09:38 Interventions: ED Discharge Assessment Last Done: 09/29/18 09:36 Prescriptions: No Action sildenafil (antihypertensive) 20 mg tablet 20 mg PO DAILY PRN (Reason: sexual activity) Qty: 10 RF: 0 losartan [Cozaar] 100 MG tablet 100 mg PO QDAY Qty: 0 RF: 0 atorvastatin [Lipitor] 10 MG tablet 10 mg PO HS Qty: 30 RF: 0 carvedilol [Coreg] 3.125 MG tablet 3.125 mg PO BID Qty: 180 RF: 0 warfarin [Coumadin] 5 mg tablet 5 mg PO SEE INSTRUCTIONS Qty: 90 RF: 3 tamsulosin 0.4 mg capsule 0.4 mg PO DAILY Qty: 90 RF: 1 acetaminophen-codeine 300-30 mg tablet 1 tab PO Q4-6H PRN (Reason: pain) Qty: 5 RF: 0
--- NOTE | 2018-09-29 07:19 | DI.RAD.S_ITS ---
PROCEDURE: XR CHEST 1V INDICATIONS: chest pain TECHNIQUE: One view of the chest was acquired. COMPARISON: [facility], , CHEST 1 VIEW, 02/12/2016, 11:57. FINDINGS: Surgical changes and devices: Postoperative changes of the chest are present related to median sternotomy of prior heart valve replacement. Lungs and pleura: Lungs are clear. No pleural effusions or pneumothorax. Mediastinum: Mediastinal contours appear normal. Heart size is normal. Bones and chest wall: No suspicious bony lesions. Degenerative changes of the spine and shoulders are not well characterized. Overlying soft tissues appear unremarkable. IMPRESSION: Stable chest. No acute cardiopulmonary process is suspected. Dictated by: Solo Cunningham M.D. on 09/29/2018 at 6:44 Approved by: Solo Cunningham M.D. on 09/29/2018 at 6:46
[2018-09-29 07:31] LABS: Add Manual Diff / Slide Review NO; Basophils Absolute Auto 100 /uL (0-100); Basophils Percent Auto 0.7 % (0-2); Eosinophils Absolute Auto 100 /uL (0-450); Eosinophils Percent Auto 0.9 % (2-4); Hematocrit 47.4 % (41-53); Hemoglobin 16.6 g/dL (13.5-17.5); INR 2.3 (0.9-1.3); Lymphocytes Absolute Auto 1900 /uL (1100-4500); Lymphocytes Percent Auto 18.8 % (25-40); Mean Corpuscular HGB Conc 35.1 % (30-36); Mean Corpuscular Hemoglobin 30.5 PG (26-34); Mean Corpuscular Volume 86.8 fL (80-100); Monocytes Absolute Auto 900 /uL (0-900); Monocytes Percent Auto 9.2 % (3-14); Neutrophils Absolute Auto 7100 /uL (1500-7000); Neutrophils Percent Auto 70.4 % (50-75); Platelet Count 155 X10^3/uL (150-400); Prothrombin Time 27.4 SECONDS (10.1-12.7); Red Blood Cell Count 5.46 X10^6/uL (4.5-5.9); Red Cell Distribution Width 13.8 % (11.6-14.8); White Blood Cell Count 10.1 X10^3/uL (4.5-11.0)
[2018-09-29 07:33] LABS: PTT Partial Thromboplastin Tim 44 SECONDS (26.4-36.2)
[2018-09-29 07:35] LABS: Alanine Aminotransferase 36 IU/L (21-72); Albumin 4.2 g/dL (3.5-5.0); Albumin Globulin Ratio 1.8 (1.0-2.8); Alkaline Phosphatase 73 U/L (38-126); Aspartate Aminotransferase 27 IU/L (17-59); BUN Creatinine Ratio 25.7 (6-22); Bilirubin Total 1.5 mg/dL (0.2-1.3); Blood Urea Nitrogen 18 mg/dL (9-20); Calcium 9.2 mg/dL (8.4-10.2); Carbon Dioxide 24 mmol/L (22-32); Chloride 103 mmol/L (98-107); Creatine Kinase 169 U/L (55-170); Estimated Glomerular Filt Rate > 60.0 mL/min (>60); Globulin 2.4 g/dL (1.7-4.1); Glucose 159 mg/dL (80-110); HEMOLYSIS < 15 (0-50); Magnesium 2.1 mg/dL (1.6-2.3); Potassium 4.1 mmol/L (3.4-5.1); Sodium 138 mmol/L (137-145); Total Protein 6.6 g/dL (6.3-8.2)
[2018-09-29 08:00] VITALS: BP 94/67; PULSE 78; RESP 20; O2SAT 97
[2018-09-29] MEDS: SODIUM CHLORIDE 0.9% 1,000 ML 150 ML IV (08:02)
[2018-09-29 08:06] LABS: CKMB % Relative Index 7.3 % (1.5-5.0)
[2018-09-29 08:31] LABS: B Type Natriuretic Peptide 349 (<100)
--- NOTE | 2018-09-29 08:52 | PC.NURSE ---
Patient had mitral valve replacement with CHF incident after that. Also has A.fib and has been cardioverted here several times. States last night began having chest pressure, shortness of breath worse with lying flat, and feeling of palpitation radiating up into neck. States he thinks he is having an episode of A Fib. again however he checked his pulse at home and it has been normal.
--- NOTE | 2018-09-29 08:54 | PC.NURSE ---
0730 Patient had an episode of A. Fib. lasting less that 30 seconds which converted back to NSR. No change in symptoms, provider Tayla aware.
[2018-09-29 09:00] VITALS: BP 114/83; PULSE 83; RESP 19; O2SAT 97
[2018-09-29 09:02] VITALS: BP 114/83; PULSE 78
[2018-09-29] MEDS: NITROGLYCERIN 0.4 MG SL TAB SL (09:02)
[2018-09-29] MEDS: ACETAMINOPHEN 325 MG TABLET 650 MG PO (09:06)
[2018-09-29 09:09] VITALS: BP 104/86; PULSE 87
--- NOTE | 2018-09-29 09:19 | PC.NURSE ---
I attempted to call report to [facility] Castell[facility] at this time, she states she will call me back.
[2018-09-29 09:36] VITALS: BP 100/86; PULSE 76; RESP 16; O2SAT 97
== END 2018-09-29 09:38 | disposition short-term general hospital (02) ==
PROVIDERS: Emergency Provider Emergency Medicine
DX: I21.4 Non-ST elevation (NSTEMI) myocardial infarction (principal); I48.91 Unspecified atrial fibrillation; R61 Generalized hyperhidrosis; Z79.01 Long term (current) use of anticoagulants
CPT/HCPCS: 36591; 71045; 80053; 82550; 82553; 83735; 83880; 84484; 85025; 85610; 85730; 93005; 93010; 96360; 96361; 99283; 99285

== ENCOUNTER 2018-10-19 16:16 | Emergency (ER) | payer MEDICARE, OTHER, SELFPAY ==
[2018-10-19 16:15] VITALS: BP 128/77; PULSE 60; RESP 18; TEMP 36.4; O2SAT 98; BMI 30.8
--- NOTE | 2018-10-19 16:27 | ED.SOB ---
HPI - SOB/Dyspnea General Chief Complaint: Shortness of Breath/Dyspnea Stated Complaint: heart isssues, SOB Time Seen by Provider: 10/19/18 16:21 Source: patient and family Mode of arrival: ambulatory Limitations: no limitations History of Present Illness 68M nonsmoker with history of CAD and stenting last month presents with increased fatigue and palpitations over the past day. He denies any chest pain, N/V, diaphoresis. He had been feeling quite well until last night after cardiac rehab. He denies any other symptoms and is otherwise well and free of complaint. 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 Mooney out of [facility] in [place] but due to bed availability last month he was transferred to . MD Complaint: shortness of breath Onset (ago): hour(s) Severity: moderate Consistency/Duration: constant Relieving factors: rest Associated symptoms: denies other symptoms Treatment prior to arrival: none Related Data Home oxygen amount: none Home Medications Medication Instructions Recorded Confirmed losartan [Cozaar] 100 mg PO QDAY #0 02/12/16 11/30/17 carvedilol [Coreg] 3.125 mg PO BID #180 07/25/17 11/30/17 Previous Rx's Medication Instructions Recorded atorvastatin [Lipitor] 10 mg PO HS #30 tab 02/13/16 sildenafil (antihypertensive) 20 20 mg PO DAILY PRN #10 tab 11/30/17 mg tablet acetaminophen-codeine 1 tab PO Q4-6H PRN #5 tab 12/30/17 warfarin 5 mg tablet 5 mg PO SEE INSTRUCTIONS #90 tab 07/23/18 tamsulosin 0.4 mg capsule 0.4 mg PO DAILY #90 cap 09/21/18 Allergies Allergy/AdvReac Type Severity Reaction Status Date / Time venom-honey bee Allergy Unknown Verified 12/30/17 15:26 [BEE VENOM (HONEY BEE)] lisinopril [LISINOPRIL] AdvReac Mild COUGH Verified 12/30/17 15:26 Review of Systems Constitutional Denies chills, Denies fever(s), Denies lethargy and Denies weakness Eyes Denies change in vision, Denies eye discharge, Denies irritation and Denies loss of vision ENT Ears, Nose, Mouth, and Throat: Denies change in voice, Denies neck pain and Denies sore throat Cardiovascular Denies chest pain, Denies irregular heart rhythm, Denies lightheadedness, Reports palpitations, Reports dyspnea, Reports dyspnea on exertion and Denies orthopnea Respiratory Denies cough, Reports dyspnea, Reports dyspnea on exertion and Denies wheezing Gastrointestinal Gastrointestinal: Denies abdominal pain, Denies change in bowel habits, Denies diarrhea, Denies nausea and Denies vomiting Genitourinary Denies hematuria, Denies flank pain, Denies urinary incontinence and Denies urinary urgency Musculoskeletal Denies neck pain Integumentary/Breasts Denies pruritus, Denies erythema, Denies rash and Denies wounds Neurologic Denies confusion, Denies loss of vision and Denies weakness Psychiatric Denies anxiety, Denies confusion, Denies depression, Denies homicidal ideation and Denies suicidal ideation Endocrine Reports palpitations Hematologic/Lymphatic Denies easy bruising Allergic/Immunologic Denies wheezing [facility] Medical History Bilateral knee pain (Chronic) BPH (benign prostatic hyperplasia) (Chronic) Erectile dysfunction (Chronic) Tinnitus of both ears (Chronic Unknown) Cardiomyopathy (Chronic Unknown) Atrial fibrillation (Chronic Unknown) Mitral valve regurgitation (Resolved Unknown) Colon polyps (Resolved Unknown) Hyperlipemia (Chronic Unknown) Hypertension (Chronic Unknown) Sleep apnea (Chronic Unknown) Surgical History Hx of right knee surgery (Resolved 12/2009) Hx of mitral valve repair (Resolved 04/2008) Family History Father No problems noted. Mother Cancer Diabetes mellitus Grandfather Diabetes mellitus Grandmother No problems noted. Grandfather No problems noted. Social History Smoking Status: Never smoker alcohol intake: never substance use type: does not use Family History Father No problems noted. Mother Cancer Diabetes mellitus Grandfather Diabetes mellitus Grandmother No problems noted. Grandfather No problems noted. Social History Smoking Status: Never smoker alcohol intake: never substance use type: does not use Exam Narrative Exam Narrative: GENERAL: This is a well-nourished, well-developed patient, in mild distress. HEAD: Atraumatic. Normocephalic. No temporal or scalp tenderness. EYES: Pupils equal round and reactive. Extraocular motions intact. No scleral icterus. No injection or drainage. ENT: Nose without bleeding, purulent drainage or septal hematoma. Throat without erythema, tonsillar hypertrophy or exudate. Uvula midline. Airway patent. NECK: Trachea midline. No JVD or lymphadenopathy. Supple, nontender, no meningeal signs. CARDIOVASCULAR: Regular rate and rhythm without murmurs, gallops, or rubs. RESPIRATORY: Clear to auscultation. Breath sounds equal bilaterally. No wheezes, rales, or rhonchi. GASTROINTESTINAL: Abdomen soft, non-tender, nondistended. No hepato-splenomegaly, or palpable masses. No guarding. EXTREMITIES: No clubbing, cyanosis, or edema. No joint tenderness, effusion, or edema noted. BACK: Nontender without deformity or crepitance. No flank tenderness. NEURO: AOx3. SKIN: No rash or erythema. Initial Vital Signs Initial Vital Signs: Vital Signs Temperature 97.6 F 10/19/18 16:15 Pulse Rate 60 10/19/18 16:15 Respiratory Rate 18 10/19/18 16:15 Blood Pressure 128/77 10/19/18 16:15 Pulse Oximetry 98 10/19/18 16:15 Scores PERC Score Age greater than or equal to 50 years: Yes Heart rate greater than or equal to 100 bpm: No Room Air O2 Sat less than 95%: No Unilateral leg swelling: No Recent trauma or surgery: No Hemoptysis: No Prior PE or DVT: No Hormone Use: No Total PERC Score: 1 Wells' Criteria for PE Clinical signs and symptoms of PE: No PE is #1 Dx or equally likely: No Heart rate > 100: No Immobilization at least 3 days or surg in previous 4 weeks: No History of PE or DVT: No Hemoptysis: No Malignancy w/Treatment within 6 months or palliative: No Wells' PE Score total: 0 Course Orders Ordered: Discontinued Medications Aspirin (Aspirin Chew) 324 mg PO NOW ONE Stop: 10/19/18 16:36 Last Admin: 10/19/18 16:41 Dose: 243 mg Sodium Chloride (Normal Saline 0.9%) 1,000 mls @ 150 mls/hr IV CONT RADHA Last Infusion: 10/19/18 19:03 Dose: 0 mls/hr Admin: 10/19/18 16:40 Dose: 150 mls/hr Consultations Consultation #1: call to cardio at [facility], after discussion regarding patient history, exam, labs, imaging we share the opinion that patient can be safely discharged given appointment early next week another call to cardio, very similar discussion to the above Time: 18:17 Vital Signs - 8 hr 10/19/18 16:15 10/19/18 17:28 10/19/18 18:03 Temperature 97.6 F Pulse Rate 60 56 L 49 L Respiratory Rate 18 13 18 Blood Pressure 128/77 Blood Pressure [Right Arm] 100/50 L 105/60 Pulse Oximetry 98 96 98 MDM - SOB/Dyspnea Lab Data Result diagrams: 10/19/18 16:25 10/19/18 16:25 Lab Results 10/19/18 10/19/18 10/19/18 Range/Units 16:25 16:25 16:25 WBC 9.5 (4.5-11.0) X10^3/uL RBC 5.60 (4.5-5.9) X10^6/uL Hgb 16.7 (13.5-17.5) g/dL Hct 48.7 (41-53) % MCV 87.1 (80-100) fL MCH 29.9 (26-34) PG MCHC 34.4 (30-36) % RDW 13.6 (11.6-14.8) % Plt Count 162 (150-400) X10^3/uL Neut % (Auto) 76.0 H (50-75) % Lymph % (Auto) 17.3 L (25-40) % [place] % (Auto) 5.2 (3-14) % Eos % (Auto) 1.2 L (2-4) % Baso % (Auto) 0.3 (0-2) % Neut # (Auto) 7200 H (2586-1126) /uL Lymph # (Auto) 1600 (2871-7090) /uL [place] # (Auto) 500 (0-900) /uL Eos # (Auto) 100 (0-450) /uL Baso # (Auto) 0 (0-100) /uL PT 39.9 H (10.1-12.7) SECONDS INR 3.4 H (0.9-1.3) D-Dimer < 200 (<230) ng/mL Sodium 138 (137-145) mmol/L Potassium 3.9 (3.4-5.1) mmol/L Chloride 101 (98-107) mmol/L Carbon Dioxide 26 (22-32) mmol/L BUN 20 (9-20) mg/dL Creatinine 0.80 (0.66-1.25) mg/dL Estimated GFR > 60.0 (>60) mL/min BUN/Creatinine Ratio 25.0 H (6-22) Glucose 138 H (80-110) mg/dL Calcium 9.3 (8.4-10.2) mg/dL Total Bilirubin 1.3 (0.2-1.3) mg/dL AST 30 (17-59) IU/L ALT 35 (21-72) IU/L Alkaline Phosphatase 85 (38-126) U/L Total Creatine Kinase 84 (55-170) U/L CK-MB (CK-2) TNP CK-MB (CK-2) Rel Index TNP Troponin I < 0.012 (0.01-0.034) ng/mL B-Natriuretic Peptide < 100 (<100) Total Protein 6.9 (6.3-8.2) g/dL Albumin 4.4 (3.5-5.0) g/dL Globulin 2.5 (1.7-4.1) g/dL Albumin/Globulin Ratio 1.8 (1.0-2.8) Lipase 142 (23-300) U/L Imaging Data Chest x-ray: Radiologist's impression: [address] [address] XRay Report Signed Patient: Ravindra Wise EMR#: [id number] : [id number]:[id number] Age/Sex: 68 / MDate of Service: 10/19/18 Loc: ED Accession Number: [id number] Procedure: XR chest 1V Ordering Provider: Jose Villar D.O. PROCEDURE: XR CHEST 1V INDICATIONS: Short of breath TECHNIQUE: One view of the chest was acquired. COMPARISON: [facility], , CHEST 1 VIEW, 02/12/2016, 11:57. [facility], CR, CHEST 2 VIEW, 05/29/2014, 14:37. [facility], CR, XR CHEST 1V, 09/29/2018, 7:32. FINDINGS: Surgical changes and devices: Sternotomy wires and a valve prosthesis can be seen. Lungs and pleura: Lungs are clear. No pleural effusions or pneumothorax. Mediastinum: Mediastinal contours appear normal. Heart size is normal. Bones and chest wall: No suspicious bony lesions. Age-appropriate bony degenerative changes are seen. Overlying soft tissues appear unremarkable. IMPRESSION: Portable chest within normal limits. Postoperative and degenerative changes are seen. Dictated by: Rajat Angulo M.D. on 10/19/2018 at 15:51 Approved by: Rajat Angulo M.D. on 10/19/2018 at 15:51 ECG Data Attestation: I personally reviewed and interpreted this ECG as follows: Prior ECG tracings: available for review Interpretation: NSR, rate 62. non specific T wave abnormality. Unchanged from prior. No ST elevations/depressions MDM Narrative Medical decision making narrative: 68M with cardiac history presents with palpitations since yesterday. He denies chest pain. He admits to some shortness of breath. Troponin unremarkable, EKG unchaged. PE considered, but not pursued given low risk Wells, PERC 1 and negative Ddimer. Consultation with his and [place] cardiologists, both of whom recommend DC home with return precautions and follow up. Discharge Plan Departure Patient Disposition: Home Clinical Impression: Heart palpitations Discharge Date/Time: 10/19/18 19:07 Interventions: ED Discharge Assessment Last Done: 10/19/18 18:55 Instructions: DI for Arrhythmias Activity Restrictions/Additional Instructions: *You have been diagnosed with [ palpitations and fatigue ] *What to do: *do NOT take your coumadin today *Follow up with your religious studies professor on 10/23 as planned. Let them know you were seen in the Emergency Department and that we ask that you be seen in follow up *Return to ER if you should have any new, worsening or concerning symptoms, such as [ chest pain, unexplained sweating, shortness of breath, vomiting or other bothersome symptoms.] Prescriptions: No Action sildenafil (antihypertensive) 20 mg tablet 20 mg PO DAILY PRN (Reason: sexual activity) Qty: 10 RF: 0 losartan [Cozaar] 100 MG tablet 100 mg PO QDAY Qty: 0 RF: 0 atorvastatin [Lipitor] 10 MG tablet 10 mg PO HS Qty: 30 RF: 0 carvedilol [Coreg] 3.125 MG tablet 3.125 mg PO BID Qty: 180 RF: 0 warfarin [Coumadin] 5 mg tablet 5 mg PO SEE INSTRUCTIONS Qty: 90 RF: 3 tamsulosin 0.4 mg capsule 0.4 mg PO DAILY Qty: 90 RF: 1 acetaminophen-codeine 300-30 mg tablet 1 tab PO Q4-6H PRN (Reason: pain) Qty: 5 RF: 0 Referrals: Luke Etienne MD [Primary Care Provider] -
--- NOTE | 2018-10-19 16:35 | DI.RAD.S_ITS ---
PROCEDURE: XR CHEST 1V INDICATIONS: Short of breath TECHNIQUE: One view of the chest was acquired. COMPARISON: [facility], CHEST 1 VIEW, 02/12/2016, 11:57. [facility], CHEST 2 VIEW, 05/29/2014, 14:37. [facility], XR CHEST 1V, 09/29/2018, 7:32. FINDINGS: Surgical changes and devices: Sternotomy wires and a valve prosthesis can be seen. Lungs and pleura: Lungs are clear. No pleural effusions or pneumothorax. Mediastinum: Mediastinal contours appear normal. Heart size is normal. Bones and chest wall: No suspicious bony lesions. Age-appropriate bony degenerative changes are seen. Overlying soft tissues appear unremarkable. IMPRESSION: Portable chest within normal limits. Postoperative and degenerative changes are seen. Dictated by: Rajat Angulo M.D. on 10/19/2018 at 15:51 Approved by: Rajat Angulo M.D. on 10/19/2018 at 15:51
[2018-10-19] MEDS: SODIUM CHLORIDE 0.9% 1,000 ML 150 ML IV (16:40)
[2018-10-19] MEDS: ASPIRIN 81 MG TAB 324 MG PO (16:41)
[2018-10-19 16:43] LABS: Add Manual Diff / Slide Review NO; Basophils Absolute Auto 0 /uL (0-100); Basophils Percent Auto 0.3 % (0-2); Eosinophils Absolute Auto 100 /uL (0-450); Eosinophils Percent Auto 1.2 % (2-4); Hematocrit 48.7 % (41-53); Hemoglobin 16.7 g/dL (13.5-17.5); Lymphocytes Absolute Auto 1600 /uL (1100-4500); Lymphocytes Percent Auto 17.3 % (25-40); Mean Corpuscular HGB Conc 34.4 % (30-36); Mean Corpuscular Hemoglobin 29.9 PG (26-34); Mean Corpuscular Volume 87.1 fL (80-100); Monocytes Absolute Auto 500 /uL (0-900); Monocytes Percent Auto 5.2 % (3-14); Neutrophils Absolute Auto 7200 /uL (1500-7000); Platelet Count 162 X10^3/uL (150-400); Red Cell Distribution Width 13.6 % (11.6-14.8); White Blood Cell Count 9.5 X10^3/uL (4.5-11.0)
[2018-10-19 16:48] LABS: Alanine Aminotransferase 35 IU/L (21-72); Albumin 4.4 g/dL (3.5-5.0); Albumin Globulin Ratio 1.8 (1.0-2.8); Alkaline Phosphatase 85 U/L (38-126); Aspartate Aminotransferase 30 IU/L (17-59); Bilirubin Total 1.3 mg/dL (0.2-1.3); Blood Urea Nitrogen 20 mg/dL (9-20); Calcium 9.3 mg/dL (8.4-10.2); Carbon Dioxide 26 mmol/L (22-32); Chloride 101 mmol/L (98-107); Creatine Kinase 84 U/L (55-170); Estimated Glomerular Filt Rate > 60.0 mL/min (>60); Globulin 2.5 g/dL (1.7-4.1); Glucose 138 mg/dL (80-110); HEMOLYSIS 16 (0-50); Lipase 142 U/L (23-300); Potassium 3.9 mmol/L (3.4-5.1); Sodium 138 mmol/L (137-145); Total Protein 6.9 g/dL (6.3-8.2)
[2018-10-19 17:00] LABS: Troponin I < 0.012 ng/mL (0.01-0.034)
[2018-10-19 17:08] LABS: B Type Natriuretic Peptide < 100 (<100)
[2018-10-19 17:28] VITALS: BP 100/50; PULSE 56; RESP 13; O2SAT 96
[2018-10-19 17:50] LABS: INR 3.4 (0.9-1.3); Prothrombin Time 39.9 SECONDS (10.1-12.7)
[2018-10-19 17:55] LABS: D Dimer < 200 ng/mL (<230)
[2018-10-19 18:03] VITALS: BP 105/60; PULSE 49; RESP 18; O2SAT 98
--- NOTE | 2018-10-19 18:05 | ED_ITS ---
HPI - SOB/Dyspnea General Chief Complaint: Shortness of Breath/Dyspnea Stated Complaint: heart isssues, SOB Time Seen by Provider: 10/19/18 16:21 Source: patient and family Mode of arrival: ambulatory Limitations: no limitations History of Present Illness 68M nonsmoker with history of CAD and stenting last month presents with increased fatigue and palpitations over the past day. He denies any chest pain, N/V, diaphoresis. He had been feeling quite well until last night after cardiac rehab. He denies any other symptoms and is otherwise well and free of complaint. His normal fuel cell engineer is Dr. Mooney out of [facility] in [place] but due to bed availability last month he was transferred to . MD Complaint: shortness of breath Onset (ago): hour(s) Severity: moderate Consistency/Duration: constant Relieving factors: rest Associated symptoms: denies other symptoms Treatment prior to arrival: none Related Data Home oxygen amount: none Home Medications Medication Instructions Recorded Confirmed losartan [Cozaar] 100 mg PO QDAY #0 02/12/16 11/30/17 carvedilol [Coreg] 3.125 mg PO BID #180 07/25/17 11/30/17 Previous Rx's Medication Instructions Recorded atorvastatin [Lipitor] 10 mg PO HS #30 tab 02/13/16 sildenafil (antihypertensive) 20 20 mg PO DAILY PRN #10 tab 11/30/17 mg tablet acetaminophen-codeine 1 tab PO Q4-6H PRN #5 tab 12/30/17 warfarin 5 mg tablet 5 mg PO SEE INSTRUCTIONS #90 tab 07/23/18 tamsulosin 0.4 mg capsule 0.4 mg PO DAILY #90 cap 09/21/18 Allergies Allergy/AdvReac Type Severity Reaction Status Date / Time venom-honey bee Allergy Unknown Verified 12/30/17 15:26 [BEE VENOM (HONEY BEE)] lisinopril [LISINOPRIL] AdvReac Mild COUGH Verified 12/30/17 15:26 Review of Systems Constitutional Denies chills, Denies fever(s), Denies lethargy and Denies weakness Eyes Denies change in vision, Denies eye discharge, Denies irritation and Denies loss of vision ENT Ears, Nose, Mouth, and Throat: Denies change in voice, Denies neck pain and Denies sore throat Cardiovascular Denies chest pain, Denies irregular heart rhythm, Denies lightheadedness, Reports palpitations, Reports dyspnea, Reports dyspnea on exertion and Denies orthopnea Respiratory Denies cough, Reports dyspnea, Reports dyspnea on exertion and Denies wheezing Gastrointestinal Gastrointestinal: Denies abdominal pain, Denies change in bowel habits, Denies diarrhea, Denies nausea and Denies vomiting Genitourinary Denies hematuria, Denies flank pain, Denies urinary incontinence and Denies urin evangelist urgency Musculoskeletal Denies neck pain Integumentary/Breasts Denies pruritus, Denies erythema, Denies rash and Denies wounds Neurologic Denies confusion, Denies loss of vision and Denies weakness Psychiatric Denies anxiety, Denies confusion, Denies depression, Denies homicidal ideation and Denies suicidal ideation Endocrine Reports palpitations Hematologic/Lymphatic Denies easy bruising Allergic/Immunologic Denies wheezing FORMERLY [facility] Medical History Bilateral knee pain (Chronic) BPH (benign prostatic hyperplasia) (Chronic) Erectile dysfunction (Chronic) Tinnitus of both ears (Chronic Unknown) Cardiomyopathy (Chronic Unknown) Atrial fibrillation (Chronic Unknown) Mitral valve regurgitation (Resolved Unknown) Colon polyps (Resolved Unknown) Hyperlipemia (Chronic Unknown) Hypertension (Chronic Unknown) Sleep apnea (Chronic Unknown) Surgical History Hx of right knee surgery (Resolved 12/2009) Hx of mitral valve repair (Resolved 04/2008) Family History Father No problems noted. Mother Cancer Diabetes mellitus Grandfather Diabetes mellitus Grandmother No problems noted. Grandfather No problems noted. Social History Smoking Status: Never smoker alcohol intake: never substance use type: does not use Family History Father No problems noted. Mother Cancer Diabetes mellitus Grandfather Diabetes mellitus Grandmother No problems noted. Grandfather No problems noted. Social History Smoking Status: Never smoker alcohol intake: never substance use type: does not use Exam Narrative Exam Narrative: GENERAL: This is a well-nourished, well-developed patient, in mild distress. HEAD: Atraumatic. Normocephalic. No temporal or scalp tenderness. EYES: Pupils equal round and reactive. Extraocular motions intact. No scleral icterus. No injection or drainage. ENT: Nose without bleeding, purulent drainage or septal hematoma. Throat without erythema, tonsillar hypertrophy or exudate. Uvula midline. Airway patent. NECK: Trachea midline. No JVD or lymphadenopathy. Supple, nontender, no meningeal signs. CARDIOVASCULAR: Regular rate and rhythm without murmurs, gallops, or rubs. RESPIRATORY: Clear to auscultation. Breath sounds equal bilaterally. No wheezes, rales, or rhonchi. GASTROINTESTINAL: Abdomen soft, non-tender, nondistended. No hepato- splenomegaly, or palpable masses. No guarding. EXTREMITIES: No clubbing, cyanosis, or edema. No joint tenderness, effusion, or edema noted. BACK: Nontender without deformity or crepitance. No flank tenderness. NEURO: AOx3. SKIN: No rash or erythema. Initial Vital Signs Initial Vital Signs: Vital Signs Temperature 97.6 F 10/19/18 16:15 Pulse Rate 60 10/19/18 16:15 Respiratory Rate 18 10/19/18 16:15 Blood Pressure 128/77 10/19/18 16:15 Pulse Oximetry 98 10/19/18 16:15 Scores PERC Score Age greater than or equal to 50 years: Yes Heart rate greater than or equal to 100 bpm: No Room Air O2 Sat less than 95%: No Unilateral leg swelling: No Recent trauma or surgery: No Hemoptysis: No Prior PE or DVT: No Hormone Use: No Total PERC Score: 1 Wells' Criteria for PE Clinical signs and symptoms of PE: No PE is #1 Dx or equally likely: No Heart rate > 100: No Immobilization at least 3 days or surg in previous 4 weeks: No History of PE or DVT: No Hemoptysis: No Malignancy w/Treatment within 6 months or palliative: No Wells' PE Score total: 0 Course Orders Ordered: Discontinued Medications Aspirin (Aspirin Chew) 324 mg PO NOW ONE Stop: 10/19/18 16:36 Last Admin: 10/19/18 16:41 Dose: 243 mg Sodium Chloride (Normal Saline 0.9%) 1,000 mls @ 150 mls/hr IV CONT RADHA Last Infusion: 10/19/18 19:03 Dose: 0 mls/hr Admin: 10/19/18 16:40 Dose: 150 mls/hr Consultations Consultation #1: call to cardio at [facility], after discussion regarding patient history, exam, labs, imaging we share the opinion that patient can be safely discharged given appointment early next week another call to cardio, very similar discussion to the above Time: 18:17 Vital Signs - 8 hr 10/19/18 16:15 10/19/18 17:28 10/19/18 18:03 Temperature 97.6 F Pulse Rate 60 56 L 49 L Respiratory Rate 18 13 18 Blood Pressure 128/77 Blood Pressure [Right Arm] 100/50 L 105/60 Pulse Oximetry 98 96 98 MDM - SOB/Dyspnea Lab Data Result diagrams: 10/19/18 16:25 10/19/18 16:25 Lab Results 10/19/18 10/19/18 10/19/18 Range/Units 16:25 16:25 16:25 WBC 9.5 (4.5-11.0) X10^3/uL RBC 5.60 (4.5-5.9) X10^6/uL Hgb 16.7 (13.5-17.5) g/dL Hct 48.7 (41-53) % MCV 87.1 (80-100) fL MCH 29.9 (26-34) PG MCHC 34.4 (30-36) % RDW 13.6 (11.6-14.8) % Plt Count 162 (150-400) X10^3/uL Neut % (Auto) 76.0 H (50-75) % Lymph % (Auto) 17.3 L (25-40) % [place] % (Auto) 5.2 (3-14) % Eos % (Auto) 1.2 L (2-4) % Baso % (Auto) 0.3 (0-2) % Neut # (Auto) 7200 H (3377-9344) /uL Lymph # (Auto) 1600 (2507-3026) /uL [place] # (Auto) 500 (0-900) /uL Eos # (Auto) 100 (0-450) /uL Baso # (Auto) 0 (0-100) /uL PT 39.9 H (10.1-12.7) SECONDS INR 3.4 H (0.9-1.3) D-Dimer < 200 (<230) ng/mL Sodium 138 (137-145) mmol/L Potassium 3.9 (3.4-5.1) mmol/L Chloride 101 (98-107) mmol/L Carbon Dioxide 26 (22-32) mmol/L BUN 20 (9-20) mg/dL Creatinine 0.80 (0.66-1.25) mg/dL Estimated GFR > 60.0 (>60) mL/min BUN/Creatinine Ratio 25.0 H (6-22) Glucose 138 H (80-110) mg/dL Calcium 9.3 (8.4-10.2) mg/dL Total Bilirubin 1.3 (0.2-1.3) mg/dL AST 30 (17-59) IU/L ALT 35 (21-72) IU/L Alkaline Phosphatase 85 (38-126) U/L Total Creatine Kinase 84 (55-170) U/L CK-MB (CK-2) TNP CK-MB (CK-2) Rel Index TNP Troponin I < 0.012 (0.01-0.034) ng/mL B-Natriuretic Peptide < 100 (<100) Total Protein 6.9 (6.3-8.2) g/dL Albumin 4.4 (3.5-5.0) g/dL Globulin 2.5 (1.7-4.1) g/dL Albumin/Globulin Ratio 1.8 (1.0-2.8) Lipase 142 (23-300) U/L Imaging Data Chest x-ray: Radiologist's impression: [address] [address] XRay Report Signed Patient: Ravindra Wise EMR#: [id number] : 1Acct:[id number] Age/Sex: 68 / MDate of Service: 10/19/18 Loc: ED Accession Number: [id number] Procedure: XR chest 1V Ordering Provider: Jose Villar D.O. PROCEDURE: XR CHEST 1V INDICATIONS: Short of breath TECHNIQUE: One view of the chest was acquired. COMPARISON: [facility], CHEST 1 VIEW, 02/12/2016, 11:57. [facility], CR, CHEST 2 VIEW, 05/29/2014, 14:37. [facility], CR, XR CHEST 1V, 09/29/2018, 7:32. FINDINGS: Surgical changes and devices: Sternotomy wires and a valve prosthesis can be seen. Lungs and pleura: Lungs are clear. No pleural effusions or pneumothorax. Mediastinum: Mediastinal contours appear normal. Heart size is normal. Bones and chest wall: No suspicious bony lesions. Age-appropriate bony degenerative changes are seen. Overlying soft tissues appear unremarkable. IMPRESSION: Portable chest within normal limits. Postoperative and degenerative changes are seen. Dictated by: Rajat Angulo M.D. on 10/19/2018 at 15:51 Approved by: Rajat Angulo M.D. on 10/19/2018 at 15:51 ECG Data Attestation: I personally reviewed and interpreted this ECG as follows: Prior ECG tracings: available for review Interpretation: NSR, rate 62. non specific T wave abnormality. Unchanged from prior. No ST elevations/depressions MDM Narrative Medical decision making narrative: 68M with cardiac history presents with palpitations since yesterday. He denies chest pain. He admits to some shortness of breath. Troponin unremarkable, EKG unchaged. PE considered, but not pursued given low risk Wells, PERC 1 and negative Ddimer. Consultation with his and [place] cardiologists, both of whom recommend DC home with return precautions and follow up. Discharge Plan Departure Patient Disposition: Home Clinical Impression: Heart palpitations Discharge Date/Time: 10/19/18 19:07 Interventions: ED Discharge Assessment Last Done: 10/19/18 18:55 Instructions: DI for Arrhythmias Activity Restrictions/Additional Instructions: *You have been diagnosed with [ palpitations and fatigue ] *What to do: *do NOT take your coumadin today *Follow up with your fuel cell engineer on 10/23 as planned. Let them know you were seen in the Emergency Department and that we ask that you be seen in follow up *Return to ER if you should have any new, worsening or concerning symptoms, such as [ chest pain, unexplained sweating, shortness of breath, vomiting or other bothersome symptoms.] Prescriptions: No Action sildenafil (antihypertensive) 20 mg tablet 20 mg PO DAILY PRN (Reason: sexual activity) Qty: 10 RF: 0 losartan [Cozaar] 100 MG tablet 100 mg PO QDAY Qty: 0 RF: 0 atorvastatin [Lipitor] 10 MG tablet 10 mg PO HS Qty: 30 RF: 0 carvedilol [Coreg] 3.125 MG tablet 3.125 mg PO BID Qty: 180 RF: 0 warfarin [Coumadin] 5 mg tablet 5 mg PO SEE INSTRUCTIONS Qty: 90 RF: 3 tamsulosin 0.4 mg capsule 0.4 mg PO DAILY Qty: 90 RF: 1 acetaminophen-codeine 300-30 mg tablet 1 tab PO Q4-6H PRN (Reason: pain) Qty: 5 RF: 0 Referrals: Luke Etienne MD [Primary Care Provider] -
[2018-10-19 18:55] VITALS: BP 128/82; PULSE 49; RESP 20; O2SAT 98
== END 2018-10-19 19:07 | disposition home or self-care (01) ==
PROVIDERS: Emergency Provider Emergency Medicine; PCP Student in an Organized Health Care Education/Training Program
DX: R00.2 Palpitations (principal); R06.02 Shortness of breath
CPT/HCPCS: 36591; 71045; 80053; 82550; 83690; 83880; 84484; 85025; 85379; 85610; 93005; 96360; 96361; 99283; 99285

== ENCOUNTER → 2019-01-08 13:47 | Outpatient (CLI) | payer MEDICARE, OTHER, SELFPAY ==
[2019-01-08 14:17] LABS: Hemoglobin A1C% w Est Avg Glu 5.4 % (4.0-6.0)
[2019-01-08 15:16] LABS: Vitamin D 25 Hydroxy (D3) 44.3 ng/mL (30.0-100.0)
[2019-01-08 15:59] LABS: Prostate Specific Antigen Scrn 91.6 ng/mL (0.1-4.0)
== END ==
PROVIDERS: PCP Student in an Organized Health Care Education/Training Program; Visit Provider Student in an Organized Health Care Education/Training Program
DX: R73.09 Other abnormal glucose (principal); E55.9 Vitamin D deficiency, unspecified; R35.1 Nocturia; Z12.5 Encounter for screening for malignant neoplasm of prostate
CPT/HCPCS: 36415; 82306; 83036; G0103

== ENCOUNTER → 2019-01-09 11:41 | Outpatient (CLI) | payer MEDICARE, OTHER, SELFPAY ==
[2019-01-09 14:57] LABS: Prostate Specific Antigen 98.8 ng/mL (0.10-4.00)
== END ==
PROVIDERS: PCP Student in an Organized Health Care Education/Training Program; Visit Provider Student in an Organized Health Care Education/Training Program
DX: R97.20 Elevated prostate specific antigen [PSA] (principal)
CPT/HCPCS: 36415; 84153

== ENCOUNTER 2019-01-10 08:30 | Outpatient (RCR) | payer MEDICARE, OTHER, SELFPAY | END 2019-01-10 09:00 | LOC: CAR 08:30 | PROVIDERS: Visit Provider Internal Medicine | DX: I21.3 ST elevation (STEMI) myocardial infarction of unspecified site (principal) | CPT/HCPCS: 93798 ==

== ENCOUNTER → 2019-01-30 10:18 | Outpatient (CLI) | payer MEDICARE, OTHER, SELFPAY ==
--- NOTE | 2019-01-30 10:20 | DI.US.S_ITS ---
PROCEDURE: US ABD AORTA ANEURYSM SCREEN INDICATIONS: AAA SCREEN, FORMER SMOKER TECHNIQUE: Real time scanning was performed of the aorta and iliac arteries, with image documentation. COMPARISON: None. FINDINGS: Aorta: Proximal aortic diameter measures 2.9 cm. Mid-aorta measures 2.5 cm. Distal aortic diameter is 2.0 cm. Iliac arteries: Right common iliac artery measures 1.3 cm. Left common iliac artery measures 1.3 cm. 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 5 year followup ultrasound recommended. Dictated by: Shakir SMALL Interpreted: Rajat Angulo MD on 01/30/2019 at 11:04 Approved by: Rajat Angulo M.D. on 01/30/2019 at 13:08
== END ==
PROVIDERS: PCP Student in an Organized Health Care Education/Training Program; Visit Provider Student in an Organized Health Care Education/Training Program
DX: Z13.6 Encounter for screening for cardiovascular disorders (principal); I77.811 Abdominal aortic ectasia; Z87.891 Personal history of nicotine dependence
CPT/HCPCS: 76706

== ENCOUNTER 2019-02-24 16:52 | Emergency (ER) | payer MEDICARE, OTHER, SELFPAY ==
[2019-02-24] VITALS (14 sets, daily range): BP systolic 96–120; BP diastolic 61–100; PULSE 51–115; RESP 12–38; TEMP 36.4; O2SAT 97–100
--- NOTE | 2019-02-24 17:08 | ED_ITS ---
HPI - Arrhythmia/Palpitations General Chief Complaint: Arrhythmia/Palpitations Stated Complaint: States in AFIB Time Seen by Provider: 02/24/19 16:53 Source: patient and family Mode of arrival: Ambulatory Limitations: no limitations History of Present Illness HPI narrative: Patient is a 68-year-old male. History of hypertension and hyperlipidemia. He is also known coronary artery disease. Has had a mitral valve replaced in the past. He also has a recent diagnosis of prostate cancer. Has not undergoing any treatment for this secondary to his use of Coumadin and Plavix. Also has a history of paroxysmal atrial fibrillation. He states that he feels like he is atrial fibrillation now. He is not having any chest pain or shortness of breath but does have some lightheadedness. Last time this happened he was cardioverted in the emergency department with success. Thinks that his symptoms started earlier today. He no symptoms last evening when he went to bed. Related Data Home Medications Medication Instructions Recorded Confirmed losartan [Cozaar] 100 mg PO QDAY #0 02/12/16 01/08/19 clopidogrel 75 mg tablet 75 mg PO DAILY 01/08/19 01/08/19 Previous Rx's Medication Instructions Recorded sildenafil (antihypertensive) 20 20 mg PO DAILY PRN #10 tab 11/30/ mg tablet warfarin 5 mg tablet 5 mg PO SEE INSTRUCTIONS #90 tab 07/23/18 atorvastatin 40 mg tablet 40 mg PO HS #30 tab 01/08/19 tamsulosin 0.4 mg capsule 0.8 mg PO DAILY #180 cap 01/08/19 finasteride 5 mg tablet 5 mg PO DAILY #30 tab 01/29/19 Allergies Allergy/AdvReac Type Severity Reaction Status Date / Time venom-honey bee Allergy Unknown Verified 02/24/19 17:05 [BEE VENOM (HONEY BEE)] lisinopril [LISINOPRIL] AdvReac Mild COUGH Verified 02/24/19 17:05 Review of Systems Constitutional Constitutional: Denies fever(s) and Denies headache(s) ENT Ears, Nose, Mouth, and Throat: Denies headache(s) Cardiovascular Cardiovascular: Denies chest pain, Reports rapid heart rate, Reports palpitations and Reports dyspnea Respiratory Respiratory: Denies cough and Reports dyspnea Gastrointestinal Gastrointestinal: Denies abdominal pain, Denies nausea and Denies vomiting Musculoskeletal Musculoskeletal: Denies myalgias and Denies arthralgias Integumentary/Breasts Skin/Breast: Denies rash Neurologic Neurologic: Denies behavioral changes and Denies headache(s) Psychiatric Psychiatric: Denies behavioral changes Endocrine Endocrine: Reports palpitations Hematologic/Lymphatic Comments: On Coumadin Patient History Medical/Surgical History Medical History Atrial fibrillation (Chronic ~2007) Bilateral knee pain (Chronic) BPH (benign prostatic hyperplasia) (Chronic) Cardiomyopathy (Chronic Unknown) Chicken pox (Resolved) Colon polyps (Resolved Unknown) Erectile dysfunction (Chronic) Hyperlipemia (Chronic Unknown) Hypertension (Chronic Unknown) Mitral valve regurgitation (Resolved Unknown) Rubella (Resolved) Sleep apnea (Chronic ~1999) Tinnitus of both ears (Chronic ~2013) Surgical History (Updated 02/12/19 @ 22:46 by Serene Franco) Anesthesia (Resolved) History of coronary artery stent placement (Resolved ~2018) Hx of mitral valve repair (Resolved 04/2008) Hx of right knee surgery (Resolved 12/2009) Family History (Updated 02/12/19 @ 22:47 by Serene Franco) Father Diabetes mellitus History of heart disease Hyperlipidemia Hypertension Mother Cancer Diabetes mellitus History of heart disease Hyperlipidemia Hypertension Grandfather Diabetes mellitus Grandmother No problems noted. Grandfather No problems noted. Social History Smoking Status: Never smoker alcohol intake: never substance use type: does not use Family/Social History Family History (Updated 02/12/19 @ 22:47 by Serene Franco) Father Diabetes mellitus History of heart disease Hyperlipidemia Hypertension Mother Cancer Diabetes mellitus History of heart disease Hyperlipidemia Hypertension Grandfather Diabetes mellitus Grandmother No problems noted. Grandfather No problems noted. Social History Smoking Status: Never smoker alcohol intake: never substance use type: does not use alcohol intake frequency: holidays/special occasions only Substance Use Type: does not use Exam Initial Vital Signs Initial Vital Signs: Vital Signs Temperature 97.6 F 02/24/19 17:01 Pulse Rate 115 H 02/24/19 17:01 Respiratory Rate 20 02/24/19 17:01 Blood Pressure 120/100 H 02/24/19 17:01 Pulse Oximetry 99 02/24/19 17:01 Const General: cooperative, comfortable and well developed Orientation: alert, awake and oriented x3 HENMT Head: normal to inspection and normocephalic Resp Effort & Inspection: normal respiratory effort Auscultation: clear to auscultation bilaterally Cardio Rate: tachycardic Rhythm: abnormal rhythm Pulses: radial pulses present GI Inspection: non-distended Palpation: soft, No firm and No tender Skin Lesions: no lesions Rashes: no rashes Neuro General: alert, awake and oriented x3 Cognition: normal cognition Speech: speech normal Motor: muscle tone normal throughout Sensory Exam: no sensory deficits noted Extrem General: normal to inspection and capillary refill normal Psych Appearance: grossly normal and well kempt Procedures Cardioversion Consent Signed: Yes Indication: Atrial fibrillation Cardiac rhythm prior to cardioversion: Atrial fibrillation Stability: Stable Number of attempts (shocks): 1 Joules used: 200 Cardiac rhythm post-cardioversion: Sinus rhythm Procedural Sedation Patient Age: Patient is 5yrs or older Consent signed: Yes Time out performed: Yes Indication: cardioversion ASA Class: II Mallampati Airway Classification: Class II Preparation: campus monitor applied, pulse oximeter, capnometry used, supplemental O2 applied and suction/airway equipment at bedside Fentanyl: IV Fentanyl dose (mcg): 50 IV Propofol dose (mg): 80 ED Sedation Level: Moderate (Concious) Patient Tolerated Procedure: Well and No complications Interventions: Airway repositioned Course Orders Ordered: ED Orders 02/24/19 17:00 B Type Natriuretic Peptide Stat Complete Blood Count AUTO DIFF Stat Partial Thromboplastin Time Stat Prothrombin Time INR Stat Troponin I Stat EKG-12 Lead Stat 02/24/19 17:07 RT Consult Eval and Treat Now 02/24/19 18:08 EKG-12 Lead Stat Discontinued Medications Fentanyl (Sublimaze) 50 mcg IV NOW ONE Stop: 02/24/19 17:08 Last Admin: 02/24/19 17:44 Dose: 50 mcg Documented by: EMILEE Propofol (Diprivan) 100 mg IV NOW ONE Stop: 02/24/19 17:08 Last Admin: 02/24/19 17:49 Dose: 80 mg Documented by: EMILEE Vital Signs Vital signs: Vital Signs - 8 hr 02/24/19 17:01 02/24/19 17:31 02/24/19 17:43 Temperature 97.6 F Pulse Rate 115 H 85 89 Respiratory Rate 20 20 20 Blood Pressure 120/100 H Blood Pressure [Right Arm] 103/61 96/68 Pulse Oximetry 99 100 100 02/24/19 17:48 02/24/19 17:51 02/24/19 17:52 Temperature Pulse Rate 94 H 108 H 111 H Respiratory Rate 38 H 16 14 Blood Pressure Blood Pressure [Right Arm] 106/76 120/81 103/74 Pulse Oximetry 100 97 100 02/24/19 17:56 02/24/19 18:00 02/24/19 18:05 Temperature Pulse Rate 80 85 73 Respiratory Rate 18 20 20 Blood Pressure Blood Pressure [Right Arm] 105/72 109/78 96/74 Pulse Oximetry 100 100 02/24/19 18:10 02/24/19 18:28 Temperature Pulse Rate 75 Respiratory Rate 16 Blood Pressure Blood Pressure [Right Arm] 107/78 Pulse Oximetry 100 100 MDM - Arrhythmia/Palpitations Lab Data Attestation: I reviewed the patient's lab results. Result diagrams: 02/24/19 17:00 Labs: Lab Results 02/24/19 02/24/19 02/24/19 Range/Units 17:00 17:00 17:00 WBC 7.9 (4.5-11.0) X10^3/uL RBC 5.46 (4.5-5.9) X10^6/uL Hgb 16.3 (13.5-17.5) g/dL Hct 48.0 (41-53) % MCV 87.9 (80-100) fL MCH 29.8 (26-34) PG MCHC 33.9 (30-36) % RDW 13.8 (11.6-14.8) % Plt Count 160 (150-400) X10^3/uL Neut % (Auto) 74.3 (50-75) % Lymph % (Auto) 19.1 L (25-40) % [place] % (Auto) 5.7 (3-14) % Eos % (Auto) 0.5 L (2-4) % Baso % (Auto) 0.4 (0-2) % Neut # (Auto) 5900 (0953-2189) /uL Lymph # (Auto) 1500 (0220-1943) /uL [place] # (Auto) 400 (0-900) /uL Eos # (Auto) 0 (0-450) /uL Baso # (Auto) 0 (0-100) /uL PT 22.9 H (10.1-12.7) SECONDS INR 2.0 H (0.9-1.3) APTT 40 H D (26.4-36.2) SECONDS Troponin I 0.013 (0.01-0.034) ng/mL B-Natriuretic Peptide 166 H (<100) ECG Data Attestation: I personally reviewed and interpreted this ECG as follows: Prior ECG tracings: not available for review Interpretation: Initial EKG Atrial fibrillation Ventricular rate of 97 Left axis deviation LVH Normal QTC Post cardioversion EKG Sinus rhythm Ventricular rate is 70 Occasional PVCs Left axis deviation No ST T wave changes MDM Narrative Medical decision making narrative: Patient with a history of paroxysmal atrial fibrillation. Is on Coumadin. His INR today is 2.0. His symptoms started earlier today. Discussed treatment options. Patient opted for cardioversion. He was sedated with propofol and cardioverted with 1 attempt with 200 joules. Patient tolerated procedure well. Did not remember the event. Post cardioversion EKG shows a sinus rhythm. Will have continue his Coumadin. Continue all the rest of his medications. He was given return precautions and follow-up instructions. He expressed understanding and agreement plan. Discharge Plan Departure Patient Disposition: Home Clinical Impression: Atrial fibrillation status post cardioversion Instructions: DI for Cardioversion, DI for Atrial Fibrillation Activity Restrictions/Additional Instructions: Continue all of your medications as directed. Contact your primary doctor and also your payroll tax analyst tomorrow to let them know that you had a episode of AFib. Return to the emergency department for any new or worsening symptoms Prescriptions: No Action sildenafil (antihypertensive) 20 mg tablet 20 mg PO DAILY PRN (Reason: sexual activity) Qty: 10 RF: 0 losartan [Cozaar] 100 MG tablet 100 mg PO QDAY Qty: 0 RF: 0 warfarin [Coumadin] 5 mg tablet 5 mg PO SEE INSTRUCTIONS Qty: 90 RF: 3 finasteride 5 mg tablet 5 mg PO DAILY Qty: 30 RF: 5 clopidogrel 75 mg tablet 75 mg PO DAILY RF: 0 atorvastatin 40 mg tablet 40 mg PO HS Qty: 30 RF: 0 tamsulosin 0.4 mg capsule 0.8 mg PO DAILY Qty: 180 RF: 3 Referrals: Luke Etienne MD [Primary Care Provider] -
[2019-02-24 17:13] LABS: Add Manual Diff / Slide Review NO; Basophils Absolute Auto 0 /uL (0-100); Basophils Percent Auto 0.4 % (0-2); Eosinophils Absolute Auto 0 /uL (0-450); Eosinophils Percent Auto 0.5 % (2-4); Hemoglobin 16.3 g/dL (13.5-17.5); Lymphocytes Absolute Auto 1500 /uL (1100-4500); Lymphocytes Percent Auto 19.1 % (25-40); Mean Corpuscular HGB Conc 33.9 % (30-36); Mean Corpuscular Hemoglobin 29.8 PG (26-34); Mean Corpuscular Volume 87.9 fL (80-100); Monocytes Absolute Auto 400 /uL (0-900); Monocytes Percent Auto 5.7 % (3-14); Neutrophils Absolute Auto 5900 /uL (1500-7000); Neutrophils Percent Auto 74.3 % (50-75); Platelet Count 160 X10^3/uL (150-400); Red Blood Cell Count 5.46 X10^6/uL (4.5-5.9); Red Cell Distribution Width 13.8 % (11.6-14.8); White Blood Cell Count 7.9 X10^3/uL (4.5-11.0)
[2019-02-24 17:15] LABS: Prothrombin Time 22.9 SECONDS (10.1-12.7)
[2019-02-24 17:18] LABS: PTT Partial Thromboplastin Tim 40 SECONDS (26.4-36.2)
[2019-02-24 17:30] LABS: Troponin I 0.013 ng/mL (0.01-0.034)
[2019-02-24 17:41] LABS: B Type Natriuretic Peptide 166 (<100)
[2019-02-24] MEDS: fentaNYL 100 MCG/2 ML INJ 50 MCG IV (17:44)
[2019-02-24] MEDS: PROPOFOL 200 MG/20 ML VIAL 100 MG IV (17:49)
== END 2019-02-24 19:37 | disposition home or self-care (01) ==
PROVIDERS: Emergency Provider Emergency Medicine; PCP Student in an Organized Health Care Education/Training Program
DX: I48.91 Unspecified atrial fibrillation (principal)
CPT/HCPCS: 36415; 83880; 84484; 85025; 85610; 85730; 92960; 93005; 94770; 96374; 99152; 99284; 99285; J2704; J3010

== ENCOUNTER → 2019-05-01 11:51 | Outpatient (CLI) | payer MEDICARE, OTHER, SELFPAY ==
[2019-05-01 12:14] LABS: RBC Urine None Seen (0-5/HPF)
[2019-05-01 12:58] LABS: Appearance Urine UA CLEAR; Bilirubin Urine UA NEGATIVE (NEGATIVE); Color Urine UA YELLOW; Glucose Urine UA NEGATIVE (Negative); Ketones Urine UA NEGATIVE (NEGATIVE); Leukocyte Esterase Urine UA NEGATIVE (NEGATIVE); Nitrite Urine UA NEGATIVE (Negative); Occult Blood Urine UA NEGATIVE (Negative); Protein Urine UA NEGATIVE (Negative); Urobilinogen Urine UA 0.2 E.U./dL (0.2)
[2019-05-01 13:19] LABS: Bacteria Urine Occasional (0-1); Calcium Oxalate Crystals Urine Moderate; Squamous Epithelial Cell Urine 0-1 /HPF (0-5/HPF); WBC Urine 0-1/HPF (0-5/HPF)
[2019-05-01 13:20] LABS: Mucus Urine 1+ (Negative)
== END ==
PROVIDERS: PCP Student in an Organized Health Care Education/Training Program; Visit Provider Transplant Surgery
DX: R31.0 Gross hematuria (principal)
CPT/HCPCS: 81001; 87086

== ENCOUNTER 2019-05-17 14:28 | Emergency (ER) | payer MEDICARE, OTHER, SELFPAY ==
[2019-05-17] VITALS (10 sets, daily range): BP systolic 94–132; BP diastolic 61–100; PULSE 51–122; RESP 14–22; TEMP 36.7; O2SAT 97–100; BMI 28.7
--- NOTE | 2019-05-17 14:46 | DI.RAD.S_ITS ---
PROCEDURE: XR CHEST 1V INDICATIONS: arrythmia TECHNIQUE: One view of the chest was acquired. COMPARISON: [facility], CR, XR CHEST 1V, 10/19/2018, 16:42. FINDINGS: Surgical changes and devices: Median sternotomy in changes are present. Prior heart valve replacement is noted. Lungs and pleura: Lungs are clear. No pleural effusions or pneumothorax. Mediastinum: Mediastinal contours appear normal. Heart size is mildly prominent. Bones and chest wall: No suspicious bony lesions. Overlying soft tissues appear unremarkable. IMPRESSION: Cardiomegaly without overt heart failure. No pneumonia. Dictated by: Solo Cunningham M.D. on 05/17/2019 at 14:08 Approved by: Solo Cunningham M.D. on 05/17/2019 at 14:09
[2019-05-17 15:13] LABS: Add Manual Diff / Slide Review NO; Basophils Absolute Auto 100 /uL (0-100); Basophils Percent Auto 0.7 % (0-2); Eosinophils Absolute Auto 100 /uL (0-450); Eosinophils Percent Auto 1.1 % (2-4); Hematocrit 43.2 % (41-53); Hemoglobin 14.8 g/dL (13.5-17.5); Lymphocytes Absolute Auto 1600 /uL (1100-4500); Lymphocytes Percent Auto 20.2 % (25-40); Mean Corpuscular HGB Conc 34.1 % (30-36); Mean Corpuscular Hemoglobin 29.8 PG (26-34); Mean Corpuscular Volume 87.3 fL (80-100); Monocytes Absolute Auto 500 /uL (0-900); Monocytes Percent Auto 6.7 % (3-14); Neutrophils Absolute Auto 5700 /uL (1500-7000); Neutrophils Percent Auto 71.3 % (50-75); Platelet Count 153 X10^3/uL (150-400); Red Blood Cell Count 4.95 X10^6/uL (4.5-5.9); Red Cell Distribution Width 14.8 % (11.6-14.8)
[2019-05-17 15:18] LABS: INR 2.6 (0.9-1.3); Prothrombin Time 30.2 SECONDS (10.1-12.7)
[2019-05-17 15:20] LABS: PTT Partial Thromboplastin Tim 42 SECONDS (26.4-36.2)
[2019-05-17] MEDS: SODIUM CHLORIDE 0.9% 1,000 ML 1000 ML IV (15:20)
--- NOTE | 2019-05-17 15:44 | ED.ARRPALP ---
HPI - Arrhythmia/Palpitations General Chief Complaint: Arrhythmia/Palpitations Stated Complaint: afib Time Seen by Provider: 05/17/19 15:38 Source: patient Mode of arrival: Ambulatory Limitations: no limitations History of Present Illness HPI narrative: This is a 69-year-old male comes in with complaint of atrial fibrillation. Patient states he feels like he would back in a couple hours ago. States that he has had this multiple times. He has had cardioversion 7 or 8 times in the past. He is scheduled for an ablation on the [address] Mooney in [place] patient states that he can feel his heart aware and rhythm, he can feel that it's elevated. He feel little short of breath with exertion, little bit dizzy today. Denies any chest pressure or pain. Denies any nausea or vomiting. He has a slight headache, no issues with bowel movements. No new issues with urination. No swelling his extremities. He is on warfarin daily as well as Plavix he had a stent placed in September of 2017 after a heart attack. He does have a recent diagnosis of metastatic prostate cancer and has recently been started on medications including Lupron, Casodex and is continuing finasteride. Patient has not had any other changes to his cardiac meds. He states this feels very similar to his prior episodes. Patient states than when he is cardioverted he typically responds to a higher dose such as 200 joules. Related Data Home Medications Medication Instructions Recorded Confirmed losartan [Cozaar] 100 mg PO DAILY #0 02/12/16 05/17/19 clopidogrel 75 mg tablet 75 mg PO DAILY 01/08/19 05/17/19 Lupron Injection 1 dose IM [id number] 05/17/19 05/17/19 atorvastatin 40 mg PO BEDTIME 05/17/19 05/17/19 bicalutamide [Casodex] 50 mg PO DAILY 05/17/19 05/17/19 metoprolol tartrate 12.5 mg PO BID 05/17/19 05/17/19 Previous Rx's Medication Instructions Recorded warfarin 5 mg tablet 5 mg PO SEE INSTRUCTIONS #90 tab 07/23/18 tamsulosin 0.4 mg capsule 0.8 mg PO DAILY #180 cap 01/08/19 finasteride 5 mg tablet 5 mg PO DAILY #90 tab 05/03/19 Allergies Allergy/AdvReac Type Severity Reaction Status Date / Time venom-honey bee Allergy Unknown Verified 05/17/19 14:40 [BEE VENOM (HONEY BEE)] lisinopril [LISINOPRIL] AdvReac Mild COUGH Verified 05/17/19 14:40 Review of Systems Review of Systems ROS Unobtainable: All systems reviewed & are unremarkable except as noted in HPI and below Patient History Medical History (Updated 05/17/19 @ 17:03 by Isis Lomeil DO) Atrial fibrillation (Chronic ~2007) Bilateral knee pain (Chronic) BPH (benign prostatic hyperplasia) (Chronic) Cardiomyopathy (Chronic Unknown) Chicken pox (Resolved) Colon polyps (Resolved Unknown) Erectile dysfunction (Chronic) Hyperlipemia (Chronic Unknown) Hypertension (Chronic Unknown) Mitral valve regurgitation (Resolved Unknown) Prostate cancer (Acute) Rubella (Resolved) Sleep apnea (Chronic ~1999) Tinnitus of both ears (Chronic ~2013) Surgical History Anesthesia (Resolved) History of coronary artery stent placement (Resolved ~2018) Hx of mitral valve repair (Resolved 04/2008) Hx of right knee surgery (Resolved 12/2009) Family History Father Diabetes mellitus History of heart disease Hyperlipidemia Hypertension Mother Cancer Diabetes mellitus History of heart disease Hyperlipidemia Hypertension Grandfather Diabetes mellitus Grandmother No problems noted. Grandfather No problems noted. Social History Smoking Status: Never smoker alcohol intake: never substance use type: does not use Smoking Status: Never smoker alcohol intake frequency: holidays/special occasions only Substance Use Type: does not use Exam Narrative Exam Narrative: GENERAL: Alert and oriented x three, well-nourished male in mild distress HEENT: Head normocephalic, atraumatic, EOMI, pupils reactive, face symmetric, moist mucous membranes NECK: Supple, full range of motion CARDIOVASCULAR: Irregularly irregular Rate and rhythm without murmurs, rubs or gallops. No JVD. RESPIRATORY: Breath sounds equal bilaterally, no wheezes rales or rhonchi. No tachypnea. No accessory muscle use. ABDOMEN: Soft, nontender. Normoactive bowel sounds all 4 quadrants. No guarding or rebound, rigidity, no mass : No CVA tenderness EXTREMITIES: Normal range of motion, no clubbing or edema. Neurovascularly intact NEUROLOGICAL: Cranial nerves II through XII grossly intact. Moving all extremities SKIN: Warm, dry, no petechiae, no rashes or lesions. Initial Vital Signs Initial Vital Signs: Vital Signs Temperature 98.1 F 05/17/19 14:41 Pulse Rate 103 H 05/17/19 14:41 Respiratory Rate 18 05/17/19 14:41 Blood Pressure 100/61 05/17/19 14:41 Pulse Oximetry 98 05/17/19 14:41 Procedures Cardioversion Consent Signed: Yes Cardiac rhythm prior to cardioversion: atrial fibrillation with rvr. Stability: Unstable Number of attempts (shocks): 1 Joules used: 200 Cardiac rhythm post-cardioversion: normal sinus rhythm. Procedural Sedation Patient Age: Patient is 5yrs or older Consent signed: Yes Time out performed: Yes Indication: cardioversion ASA Class: II Mallampati Airway Classification: Class III Time of Last PO Intake: 13:30 Preparation: hall monitor applied, pulse oximeter, capnometry used and supplemental O2 applied IV Propofol dose (mg): 60 ED Sedation Level: Moderate (Concious) Patient Tolerated Procedure: Well Complications: none Interventions: Airway repositioned Course Orders Ordered: ED Orders 05/17/19 14:46 XR chest 1V Stat EKG-12 Lead Stat 05/17/19 15:04 Complete Blood Count AUTO DIFF Stat Comprehensive Metabolic Panel Stat Magnesium Stat Partial Thromboplastin Time Stat Prothrombin Time INR Stat Thyroid Stimulating Hormone Stat Troponin & CK Cardiac Panel Stat Discontinued Medications Sodium Chloride (Normal Saline 0.9%) 1,000 mls @ 1,000 mls/hr IV BOLUS ONE Stop: 05/17/19 16:13 Last Infusion: 05/17/19 18:00 Dose: 0 mls/hr Documented by: Admin: 05/17/19 15:20 Dose: 1,000 mls/hr Documented by: TARSHA Propofol (Diprivan) 60 mg IV NOW ONE Stop: 05/17/19 16:12 Last Admin: 05/17/19 16:52 Dose: 60 mg Documented by: EMILEE Vital Signs Vital signs: Vital Signs - 8 hr 05/17/19 14:41 05/17/19 15:00 05/17/19 16:02 Temperature 98.1 F Pulse Rate 103 H 111 H 90 Respiratory Rate 18 22 14 Blood Pressure 100/61 Blood Pressure [Left Arm] 101/68 119/86 Pulse Oximetry 98 98 100 05/17/19 16:35 05/17/19 16:47 05/17/19 16:52 Temperature Pulse Rate 93 H 121 H 122 H Respiratory Rate 18 18 20 Blood Pressure Blood Pressure [Left Arm] 117/72 123/87 132/100 H Pulse Oximetry 97 100 100 05/17/19 16:55 05/17/19 17:01 05/17/19 17:05 Temperature Pulse Rate 52 L 51 L Respiratory Rate 20 Blood Pressure Blood Pressure [Left Arm] 111/80 94/74 103/76 Pulse Oximetry 100 99 05/17/19 17:10 Temperature Pulse Rate 58 L Respiratory Rate 18 Blood Pressure Blood Pressure [Left Arm] 98/71 Pulse Oximetry 100 MDM - Arrhythmia/Palpitations Lab Data Attestation: I reviewed the patient's lab results. Result diagrams: 05/17/19 15:04 05/17/19 15:04 Labs: Lab Results 05/17/19 05/17/19 05/17/19 Range/Units 15:04 15:04 15:04 WBC 8.0 (4.5-11.0) X10^3/uL RBC 4.95 (4.5-5.9) X10^6/uL Hgb 14.8 (13.5-17.5) g/dL Hct 43.2 (41-53) % MCV 87.3 (80-100) fL MCH 29.8 (26-34) PG MCHC 34.1 (30-36) % RDW 14.8 (11.6-14.8) % Plt Count 153 (150-400) X10^3/uL Neut % (Auto) 71.3 (50-75) % Lymph % (Auto) 20.2 L (25-40) % [place] % (Auto) 6.7 (3-14) % Eos % (Auto) 1.1 L (2-4) % Baso % (Auto) 0.7 (0-2) % Neut # (Auto) 5700 (9695-9299) /uL Lymph # (Auto) 1600 (1771-9561) /uL [place] # (Auto) 500 (0-900) /uL Eos # (Auto) 100 (0-450) /uL Baso # (Auto) 100 (0-100) /uL PT 30.2 H (10.1-12.7) SECONDS INR 2.6 H (0.9-1.3) APTT 42 H (26.4-36.2) SECONDS Sodium 141 (137-145) mmol/L Potassium 4.6 (3.4-5.1) mmol/L Chloride 108 H (98-107) mmol/L Carbon Dioxide 24 (22-32) mmol/L BUN 26 H (9-20) mg/dL Creatinine 0.90 (0.66-1.25) mg/dL Estimated GFR > 60.0 (>60) mL/min BUN/Creatinine Ratio 28.9 H (6-22) Glucose 151 H (80-110) mg/dL Calcium 9.5 (8.4-10.2) mg/dL Magnesium 2.1 (1.6-2.3) mg/dL Total Bilirubin 1.0 (0.2-1.3) mg/dL AST 27 (17-59) IU/L ALT 19 (<50) IU/L Alkaline Phosphatase 57 (38-126) U/L Total Creatine Kinase 120 (55-170) U/L CK-MB (CK-2) 2.25 (<2.37) ng/mL CK-MB (CK-2) Rel Index 1.9 (1.5-5.0) % Troponin I 0.020 (0.01-0.034) ng/mL Total Protein 6.2 L (6.3-8.2) g/dL Albumin 4.0 (3.5-5.0) g/dL Globulin 2.2 (1.7-4.1) g/dL Albumin/Globulin Ratio 1.8 (1.0-2.8) TSH (0.47-4.68) uIU/mL 05/17/19 Range/Units 15:04 WBC (4.5-11.0) X10^3/uL RBC (4.5-5.9) X10^6/uL Hgb (13.5-17.5) g/dL Hct (41-53) % MCV (80-100) fL MCH (26-34) PG MCHC (30-36) % RDW (11.6-14.8) % Plt Count (150-400) X10^3/uL Neut % (Auto) (50-75) % Lymph % (Auto) (25-40) % [place] % (Auto) (3-14) % Eos % (Auto) (2-4) % Baso % (Auto) (0-2) % Neut # (Auto) (3631-0705) /uL Lymph # (Auto) (6038-4726) /uL [place] # (Auto) (0-900) /uL Eos # (Auto) (0-450) /uL Baso # (Auto) (0-100) /uL PT (10.1-12.7) SECONDS INR (0.9-1.3) APTT (26.4-36.2) SECONDS Sodium (137-145) mmol/L Potassium (3.4-5.1) mmol/L Chloride (98-107) mmol/L Carbon Dioxide (22-32) mmol/L BUN (9-20) mg/dL Creatinine (0.66-1.25) mg/dL Estimated GFR (>60) mL/min BUN/Creatinine Ratio (6-22) Glucose (80-110) mg/dL Calcium (8.4-10.2) mg/dL Magnesium (1.6-2.3) mg/dL Total Bilirubin (0.2-1.3) mg/dL AST (17-59) IU/L ALT (<50) IU/L Alkaline Phosphatase (38-126) U/L Total Creatine Kinase (55-170) U/L CK-MB (CK-2) (<2.37) ng/mL CK-MB (CK-2) Rel Index (1.5-5.0) % Troponin I (0.01-0.034) ng/mL Total Protein (6.3-8.2) g/dL Albumin (3.5-5.0) g/dL Globulin (1.7-4.1) g/dL Albumin/Globulin Ratio (1.0-2.8) TSH 1.88 (0.47-4.68) uIU/mL Imaging Data Chest x-ray: Radiologist's Impresson: [address] [address] XRay Report Signed Patient: WiseRavindra farris EMR#: [id number] : 1Acct:[id number] Age/Sex: 69 / MDate of Service: 05/17/19 Loc: ED Accession Number: [id number] Procedure: XR chest 1V Ordering Provider: Isis Lomeli D.O. PROCEDURE: XR CHEST 1V INDICATIONS: arrythmia TECHNIQUE: One view of the chest was acquired. COMPARISON: [facility], , XR CHEST 1V, 10/19/2018, 16:42. FINDINGS: Surgical changes and devices: Median sternotomy in changes are present. Prior heart valve replacement is noted. Lungs and pleura: Lungs are clear. No pleural effusions or pneumothorax. Mediastinum: Mediastinal contours appear normal. Heart size is mildly prominent. Bones and chest wall: No suspicious bony lesions. Overlying soft tissues appear unremarkable. IMPRESSION: Cardiomegaly without overt heart failure. No pneumonia. Dictated by: Solo Cunningham M.D. on 05/17/2019 at 14:08 Approved by: Solo Cunningham M.D. on 05/17/2019 at 14:09 ECG Data Attestation: I personally reviewed and interpreted this ECG as follows: Prior ECG tracings: available for review Interpretation: AFib with rate of 110, QRS of [address] elevation or depression noted. Prior EKG 02/24/19 shows afib with similar appearing ST segments. #2, sinus bradycardia occasional supraventricular complex. Rate of 55 CT, 184 QRS of [address] elevation depression appreciated MDM Narrative Medical decision making narrative: INR is 2.6, CBCs normal, troponin is negative. BNP is 166. Chest x-ray shows no acute changes patient does have cardiomegaly. Patient's other labs do not show major abnormalities patient's BUN is 26, chloride 108, glucose is 151 but normal renal function and potassium is 4.6. TSH is 1.88 with normal LFTs. Patient was cardioverted here in the department. He tolerated the procedure well he did require a little bit of airway pre positioning but this is likely 2nd to the fact that he uses CPAP nightly and he was snoring. Patient otherwise cardioverted with 200 joules and is feeling much better. Patient has follow-up with Cardiology on the for an ablation but asked to contact on Monday to make sure that he does not need re-evaluation before his ablation. Discharge Plan Departure Patient Disposition: Home Clinical Impression: Atrial fibrillation with RVR Discharge Date/Time: 05/17/19 17:59 Instructions: DI for Atrial Fibrillation Activity Restrictions/Additional Instructions: Follow-up with cardiology, call to let them know your cardioverted today they may wish to see you before ablation on the 21 of May. Continue home medications as prescribed. Make sure you're drinking plenty of fluids. Return to the ER for new or recurrent symptoms, palpitations, lightheadedness, passing out, new chest pain shortness of breath, diaphoresis, nausea or vomiting, swelling in her extremities or other new or concerning symptoms. Prescriptions: No Action losartan [Cozaar] 100 MG tablet 100 mg PO DAILY Qty: 0 RF: 0 warfarin [Coumadin] 5 mg tablet 5 mg PO SEE INSTRUCTIONS Qty: 90 RF: 3 finasteride 5 mg tablet 5 mg PO DAILY Qty: 90 RF: 1 clopidogrel 75 mg tablet 75 mg PO DAILY RF: 0 tamsulosin 0.4 mg capsule 0.8 mg PO DAILY Qty: 180 RF: 3 bicalutamide [Casodex] 50 mg Tablet 50 mg PO DAILY RF: 0 metoprolol tartrate 25 mg tablet 12.5 mg PO BID RF: 0 atorvastatin 40 mg tablet 40 mg PO BEDTIME RF: 0 Lupron Injection 1 dose IM [id number] RF: 0 Referrals: Luke Etienne MD [Primary Care Provider] -
[2019-05-17 16:01] LABS: Thyroid Stimulating Hormone 1.88 uIU/mL (0.47-4.68)
[2019-05-17 16:26] LABS: Alanine Aminotransferase 19 IU/L (<50); Albumin Globulin Ratio 1.8 (1.0-2.8); Alkaline Phosphatase 57 U/L (38-126); Aspartate Aminotransferase 27 IU/L (17-59); BUN Creatinine Ratio 28.9 (6-22); Blood Urea Nitrogen 26 mg/dL (9-20); Calcium 9.5 mg/dL (8.4-10.2); Carbon Dioxide 24 mmol/L (22-32); Chloride 108 mmol/L (98-107); Creatine Kinase 120 U/L (55-170); Estimated Glomerular Filt Rate > 60.0 mL/min (>60); Globulin 2.2 g/dL (1.7-4.1); Glucose 151 mg/dL (80-110); Magnesium 2.1 mg/dL (1.6-2.3); Potassium 4.6 mmol/L (3.4-5.1); Sodium 141 mmol/L (137-145); Total Protein 6.2 g/dL (6.3-8.2)
[2019-05-17 16:29] LABS: HEMOLYSIS 70 (0-50)
[2019-05-17 16:44] LABS: CKMB % Relative Index 1.9 % (1.5-5.0); Creatine Kinase MB 2.25 ng/mL (<2.37)
[2019-05-17] MEDS: PROPOFOL 200 MG/20 ML VIAL 60 MG IV (16:52)
== END 2019-05-17 17:59 | disposition home or self-care (01) ==
PROVIDERS: Emergency Provider Emergency Medicine; PCP Student in an Organized Health Care Education/Training Program
DX: I48.20 Chronic atrial fibrillation, unspecified (principal); R00.1 Bradycardia, unspecified
CPT/HCPCS: 36415; 71045; 80053; 82550; 82553; 83735; 84443; 84484; 85025; 85610; 85730; 92960; 93005; 94770; 96361; 96374; 99285; J2704

== ENCOUNTER 2019-06-23 11:45 | Emergency (ER) | payer MEDICARE, OTHER, SELFPAY ==
[2019-06-23 11:59] VITALS: BP 165/83; PULSE 90; RESP 16; TEMP 37.7; O2SAT 97
--- NOTE | 2019-06-23 12:38 | DI.RAD.S_ITS ---
PROCEDURE: XR CHEST 1V INDICATIONS: chest pain TECHNIQUE: One view of the chest was acquired. COMPARISON: [facility], CR, XR CHEST 1V, 05/17/2019, 14:50. FINDINGS: Surgical changes and devices: Median sternotomy changes are present. Prior heart valve replacement appears to be present. Lungs and pleura: Lungs are clear. No pleural effusions or pneumothorax. Mediastinum: Mediastinal contours appear normal. Heart size is enlarged. Bones and chest wall: No suspicious bony lesions. Overlying soft tissues appear unremarkable. IMPRESSION: Cardiomegaly without overt heart failure. No pneumonia. Dictated by: Solo Cunningham M.D. on 06/23/2019 at 12:02 Approved by: Solo Cunningham M.D. on 06/23/2019 at 12:04
[2019-06-23 12:59] LABS: INR 1.9 (0.9-1.3); Prothrombin Time 22.1 SECONDS (10.1-12.7)
[2019-06-23 13:02] LABS: Add Manual Diff / Slide Review NO; Basophils Absolute Auto 0 /uL (0-100); Basophils Percent Auto 0.2 % (0-2); Eosinophils Absolute Auto 0 /uL (0-450); Eosinophils Percent Auto 0.3 % (2-4); Hemoglobin 14.5 g/dL (13.5-17.5); Lymphocytes Absolute Auto 400 /uL (1100-4500); Mean Corpuscular HGB Conc 35.4 % (30-36); Mean Corpuscular Hemoglobin 30.7 PG (26-34); Mean Corpuscular Volume 86.7 fL (80-100); Monocytes Absolute Auto 500 /uL (0-900); Monocytes Percent Auto 8.9 % (3-14); Neutrophils Absolute Auto 4300 /uL (1500-7000); Neutrophils Percent Auto 83.6 % (50-75); PTT Partial Thromboplastin Tim 39 SECONDS (26.4-36.2); Red Blood Cell Count 4.74 X10^6/uL (4.5-5.9); Red Cell Distribution Width 13.7 % (11.6-14.8); White Blood Cell Count 5.2 X10^3/uL (4.5-11.0)
[2019-06-23 13:03] LABS: Platelet Count 115 X10^3/uL (150-400)
[2019-06-23 13:05] LABS: Alanine Aminotransferase 22 IU/L (<50); Albumin 4.3 g/dL (3.5-5.0); Albumin Globulin Ratio 1.5 (1.0-2.8); Alkaline Phosphatase 81 U/L (38-126); Aspartate Aminotransferase 25 IU/L (17-59); BUN Creatinine Ratio 17.5 (6-22); Bilirubin Total 1.4 mg/dL (0.2-1.3); Blood Urea Nitrogen 14 mg/dL (9-20); Calcium 8.7 mg/dL (8.4-10.2); Carbon Dioxide 27 mmol/L (22-32); Chloride 99 mmol/L (98-107); Creatine Kinase 42 U/L (55-170); Estimated Glomerular Filt Rate > 60.0 mL/min (>60); Globulin 2.8 g/dL (1.7-4.1); Glucose 157 mg/dL (80-110); HEMOLYSIS < 15 (0-50); Lipase 66 U/L (23-300); Potassium 3.5 mmol/L (3.4-5.1); Sodium 135 mmol/L (137-145); Total Protein 7.1 g/dL (6.3-8.2)
[2019-06-23 13:16] LABS: NT-proBNP (BNP-Adult 18+) 2570 pg/mL (<125); Troponin I < 0.012 ng/mL (0.01-0.034)
--- NOTE | 2019-06-23 13:17 | ED_ITS ---
HPI - Arrhythmia/Palpitations General Chief Complaint: Arrhythmia/Palpitations Stated Complaint: Heart Problems, SOB Time Seen by Provider: 06/23/19 12:17 Source: patient Mode of arrival: Wheelchair Limitations: no limitations History of Present Illness HPI narrative: 69-year-old male nonsmoker with history of hypertension, AFib with RVR on anticoagulation presents with body aches, fatigue, some cough and shortness of breath as well as headache and sore throat since yesterday. He does state this sometime late in the evening he felt palpitations and irregularity to his heartbeat which he states is consistent with AFib. He was admitted at [facility] for a cardiac ablation in early May. He states he has been taking all his medications as directed MD complaint: rapid heart beat and palpitations Onset (ago): hour(s) Duration: now resolved Severity: mild Arrhythmia history: atrial fibrillation Associated symptoms: other Related Data Home Medications Medication Instructions Recorded Confirmed losartan [Cozaar] 100 mg PO DAILY #0 02/12/16 05/17/19 clopidogrel 75 mg tablet 75 mg PO DAILY 01/08/19 05/17/19 Lupron Injection 1 dose IM [id number] 05/17/19 05/17/19 atorvastatin 40 mg PO BEDTIME 05/17/19 05/17/19 bicalutamide [Casodex] 50 mg PO DAILY 05/17/19 05/17/19 metoprolol tartrate 12.5 mg PO BID 05/17/19 05/17/19 Previous Rx's Medication Instructions Recorded warfarin 5 mg tablet 5 mg PO SEE INSTRUCTIONS #90 tab 07/23/18 tamsulosin 0.4 mg capsule 0.8 mg PO DAILY #180 cap 01/08/19 finasteride 5 mg tablet 5 mg PO DAILY #90 tab 05/03/19 oseltamivir [Tamiflu] 75 mg PO BID 5 Days #10 cap 06/23/19 Allergies Allergy/AdvReac Type Severity Reaction Status Date / Time venom-honey bee Allergy Unknown Verified 05/17/19 14:40 [BEE VENOM (HONEY BEE)] lisinopril [LISINOPRIL] AdvReac Mild COUGH Verified 05/17/19 14:40 Review of Systems Constitutional Constitutional: Reports chills, Denies fatigue, Denies fever(s), Denies frequent falls, Denies lethargy and Reports weakness Eyes Eyes: Denies change in vision, Denies eye discharge, Denies irritation and Denies loss of vision ENT Ears, Nose, Mouth, and Throat: Denies change in voice, Denies dizziness, Denies neck pain, Denies sore throat and Denies throat swelling Cardiovascular Cardiovascular: Denies chest pain, Reports irregular heart rhythm, Denies lightheadedness, Denies palpitations, Denies dyspnea, Denies dyspnea on exertion and Denies orthopnea Respiratory Respiratory: Reports cough, Denies dyspnea, Denies dyspnea on exertion and Denies wheezing Gastrointestinal Gastrointestinal: Denies abdominal pain, Denies change in bowel habits, Denies diarrhea, Denies nausea and Denies vomiting Genitourinary Genitourinary: Denies hematuria, Denies flank pain, Denies urinary incontinence and Denies urinary urgency Musculoskeletal Musculoskeletal: Denies back pain, Denies muscle weakness, Denies neck pain, Denies numbness and Denies tingling Integumentary/Breasts Skin/Breast: Denies pruritus, Denies erythema, Denies rash and Denies wounds Neurologic Neurologic: Denies behavioral changes, Denies confusion, Denies dizziness, Denies frequent falls, Denies loss of vision, Denies numbness, Denies tingling and Reports weakness Psychiatric Psychiatric: Denies anxiety, Denies behavioral changes, Denies confusion, Denies depression, Denies homicidal ideation and Denies suicidal ideation Endocrine Endocrine: Denies fatigue, Denies flushing and Denies palpitations Hematologic/Lymphatic Hematologic/Lymphatic: Denies easy bruising Allergic/Immunologic Allergic/Immunologic: Denies urticaria, Denies throat swelling and Denies wheezing Patient History Medical History Atrial fibrillation (Chronic ~2007) Bilateral knee pain (Chronic) BPH (benign prostatic hyperplasia) (Chronic) Cardiomyopathy (Chronic Unknown) Chicken pox (Resolved) Colon polyps (Resolved Unknown) Erectile dysfunction (Chronic) Hyperlipemia (Chronic Unknown) Hypertension (Chronic Unknown) Mitral valve regurgitation (Resolved Unknown) Prostate cancer (Acute) Rubella (Resolved) Sleep apnea (Chronic ~1999) Tinnitus of both ears (Chronic ~2013) Surgical History Anesthesia (Resolved) History of coronary artery stent placement (Resolved ~2018) Hx of mitral valve repair (Resolved 04/2008) Hx of right knee surgery (Resolved 12/2009) Family History Father Diabetes mellitus History of heart disease Hyperlipidemia Hypertension Mother Cancer Diabetes mellitus History of heart disease Hyperlipidemia Hypertension Grandfather Diabetes mellitus Grandmother No problems noted. Grandfather No problems noted. Social History Smoking Status: Never smoker alcohol intake: never substance use type: does not use Smoking Status: Never smoker alcohol intake frequency: holidays/special occasions only Substance Use Type: does not use Exam Narrative Exam Narrative: GENERAL: [69] year old patient appears stated age. Well- nourished, well-developed patient, in moderate distress, clearly feeling unwell. HEAD: Atraumatic. Normocephalic. EYES: Pupils equal round and reactive. Extraocular motions intact. No scleral icterus. No injection or drainage. ENT: Nose without bleeding, purulent drainage. Throat without erythema, tonsillar hypertrophy or exudate. Airway patent. NECK: Trachea midline. Non tender CARDIOVASCULAR: Regular rate and rhythm without murmurs, gallops, or rubs. RESPIRATORY: Clear to auscultation. Breath sounds equal bilaterally. No wheezes, rales, or rhonchi. GASTROINTESTINAL: Abdomen soft, non-tender, nondistended. EXTREMITIES: No edema or joint tenderness. BACK: Nontender without deformity or crepitance. No flank tenderness. NEURO: AOx3. SKIN: No rash or erythema of visible areas Initial Vital Signs Initial Vital Signs: Vital Signs Temperature 99.8 F H 06/23/19 11:59 Pulse Rate 90 06/23/19 11:59 Respiratory Rate 16 06/23/19 11:59 Blood Pressure 165/83 H 06/23/19 11:59 Pulse Oximetry 97 06/23/19 11:59 Course Orders Ordered: ED Orders 06/23/19 11:52 EKG-12 Lead Stat 06/23/19 12:00 Complete Blood Count AUTO DIFF Stat Comprehensive Metabolic Panel Stat D Dimer Stat Lipase Stat NT-proBNP (BNP-Adult 18+) Stat Partial Thromboplastin Time Stat Prothrombin Time INR Stat Troponin & CK Cardiac Panel Stat 06/23/19 12:38 XR chest 1V Stat 06/23/19 14:44 Influenza A & B (PCR) Stat Discontinued Medications Acetaminophen (Tylenol) 650 mg PO NOW ONE Stop: 06/23/19 14:28 Last Admin: 06/23/19 14:31 Dose: 650 mg Documented by: ANASENElisabeth Furosemide (Lasix) 40 mg IV NOW ONE Stop: 06/23/19 13:58 Last Admin: 06/23/19 14:20 Dose: 40 mg Documented by: ANASENElisabeth Sodium Chloride (Normal Saline 0.9%) 1,000 mls @ 150 mls/hr IV CONT RADHA Last Admin: 06/23/19 14:28 Dose: Not Given Documented by: EVA Vital Signs Vital signs: Vital Signs - 8 hr 06/23/19 13:35 06/23/19 14:00 06/23/19 14:30 Pulse Rate 80 81 82 Respiratory Rate 20 18 15 Blood Pressure [Left Arm] 162/85 H 168/89 H 172/88 H Pulse Oximetry 98 99 98 06/23/19 15:00 06/23/19 15:30 Pulse Rate 84 84 Respiratory Rate 15 19 Blood Pressure [Left Arm] 147/82 H 147/82 H Pulse Oximetry 98 95 MDM - Arrhythmia/Palpitations Lab Data Result diagrams: 06/23/19 12:00 06/23/19 12:00 Labs: Lab Results 06/23/19 06/23/19 06/23/19 Range/Units 12:00 12:00 12:00 WBC 5.2 (4.5-11.0) X10^3/uL RBC 4.74 (4.5-5.9) X10^6/uL Hgb 14.5 (13.5-17.5) g/dL Hct 41.0 (41-53) % MCV 86.7 (80-100) fL MCH 30.7 (26-34) PG MCHC 35.4 (30-36) % RDW 13.7 (11.6-14.8) % Plt Count 115 L (150-400) X10^3/uL Neut % (Auto) 83.6 H (50-75) % Lymph % (Auto) 7.0 L (25-40) % [place] % (Auto) 8.9 (3-14) % Eos % (Auto) 0.3 L (2-4) % Baso % (Auto) 0.2 (0-2) % Neut # (Auto) 4300 (8548-7218) /uL Lymph # (Auto) 400 L (2234-7763) /uL [place] # (Auto) 500 (0-900) /uL Eos # (Auto) 0 (0-450) /uL Baso # (Auto) 0 (0-100) /uL PT 22.1 H (10.1-12.7) SECONDS INR 1.9 H (0.9-1.3) APTT 39 H D (26.4-36.2) SECONDS D-Dimer (<230) ng/mL Sodium 135 L (137-145) mmol/L Potassium 3.5 (3.4-5.1) mmol/L Chloride 99 (98-107) mmol/L Carbon Dioxide 27 (22-32) mmol/L BUN 14 (9-20) mg/dL Creatinine 0.80 (0.66-1.25) mg/dL Estimated GFR > 60.0 (>60) mL/min BUN/Creatinine Ratio 17.5 (6-22) Glucose 157 H (80-110) mg/dL Calcium 8.7 (8.4-10.2) mg/dL Total Bilirubin 1.4 H (0.2-1.3) mg/dL AST 25 (17-59) IU/L ALT 22 (<50) IU/L Alkaline Phosphatase 81 (38-126) U/L Total Creatine Kinase 42 L (55-170) U/L CK-MB (CK-2) TNP CK-MB (CK-2) Rel Index TNP Troponin I < 0.012 (0.01-0.034) ng/mL NT-Pro-B Natriuret Pep 2570 H (<125) pg/mL Total Protein 7.1 (6.3-8.2) g/dL Albumin 4.3 (3.5-5.0) g/dL Globulin 2.8 (1.7-4.1) g/dL Albumin/Globulin Ratio 1.5 (1.0-2.8) Lipase 66 (23-300) U/L Influenza A (RT-PCR) (NEGATIVE) Influenza B (RT-PCR) (NEGATIVE) 06/23/19 06/23/19 Range/Units 12:00 14:44 WBC (4.5-11.0) X10^3/uL RBC (4.5-5.9) X10^6/uL Hgb (13.5-17.5) g/dL Hct (41-53) % MCV (80-100) fL MCH (26-34) PG MCHC (30-36) % RDW (11.6-14.8) % Plt Count (150-400) X10^3/uL Neut % (Auto) (50-75) % Lymph % (Auto) (25-40) % [place] % (Auto) (3-14) % Eos % (Auto) (2-4) % Baso % (Auto) (0-2) % Neut # (Auto) (7725-4867) /uL Lymph # (Auto) (8998-9257) /uL [place] # (Auto) (0-900) /uL Eos # (Auto) (0-450) /uL Baso # (Auto) (0-100) /uL PT (10.1-12.7) SECONDS INR (0.9-1.3) APTT (26.4-36.2) SECONDS D-Dimer < 200 (<230) ng/mL Sodium (137-145) mmol/L Potassium (3.4-5.1) mmol/L Chloride (98-107) mmol/L Carbon Dioxide (22-32) mmol/L BUN (9-20) mg/dL Creatinine (0.66-1.25) mg/dL Estimated GFR (>60) mL/min BUN/Creatinine Ratio (6-22) Glucose (80-110) mg/dL Calcium (8.4-10.2) mg/dL Total Bilirubin (0.2-1.3) mg/dL AST (17-59) IU/L ALT (<50) IU/L Alkaline Phosphatase (38-126) U/L Total Creatine Kinase (55-170) U/L CK-MB (CK-2) CK-MB (CK-2) Rel Index Troponin I (0.01-0.034) ng/mL NT-Pro-B Natriuret Pep (<125) pg/mL Total Protein (6.3-8.2) g/dL Albumin (3.5-5.0) g/dL Globulin (1.7-4.1) g/dL Albumin/Globulin Ratio (1.0-2.8) Lipase (23-300) U/L Influenza A (RT-PCR) Flu a positive H (NEGATIVE) Influenza B (RT-PCR) Flu b negative (NEGATIVE) Imaging Data Chest x-ray: Radiologist's Impresson: [place] [id number] [address] [place] [id number] XRay Report Signed Patient: Ravindra Wise EMR#: [id number] : 1Acct:[id number] Age/Sex: 69 / MDate of Service: 06/23/19 Loc: ED Accession Number: [id number] Procedure: XR chest 1V Ordering Provider: Reyna Bourne D.O. PROCEDURE: XR CHEST 1V INDICATIONS: chest pain TECHNIQUE: One view of the chest was acquired. COMPARISON: [facility], , XR CHEST 1V, 05/17/2019, 14:50. FINDINGS: Surgical changes and devices: Median sternotomy changes are present. Prior heart valve replacement appears to be present. Lungs and pleura: Lungs are clear. No pleural effusions or pneumothorax. Mediastinum: Mediastinal contours appear normal. Heart size is enlarged. Bones and chest wall: No suspicious bony lesions. Overlying soft tissues appear unremarkable. IMPRESSION: Cardiomegaly without overt heart failure. No pneumonia. Dictated by: Solo Cunningham M.D. on 06/23/2019 at 12:02 Approved by: Solo Cunningham M.D. on 06/23/2019 at 12:04 ECG Data Interpretation: multiple EKGs note NSR few brief episodes of Afib noted on monitor MDM Narrative Medical decision making narrative: Multiple etiologies for patient's symptoms considered including: [rapid Afib, pneumonia, flu vs. other] Patient's symptoms improved or duration of stay with above-stated therapies. Findings and discharge diagnosis discussed with patient/family followed by verbalization of understanding Return precautions discussed with patient/family whom verbalize understanding. Discharge Plan Departure Patient Disposition: Home Clinical Impression: Influenza A Discharge Date/Time: 06/23/19 16:03 Instructions: Influenza Activity Restrictions/Additional Instructions: *You have been diagnosed with [influenza a] *What to do: *Take medications as directed: Your prescription has been sent to [facility] at your request *Follow up with your primary care provider in 2-3 days, call for an appointment. Let them know you were seen in the Emergency Department and that we ask that you be seen in follow up *Return to ER if you should have any new, worsening or concerning symptoms, such as [ ] Prescriptions: New oseltamivir [Tamiflu] 75 mg capsule 75 mg PO BID 5 Days Qty: 10 RF: 0 No Action losartan [Cozaar] 100 MG tablet 100 mg PO DAILY Qty: 0 RF: 0 warfarin [Coumadin] 5 mg tablet 5 mg PO SEE INSTRUCTIONS Qty: 90 RF: 3 finasteride 5 mg tablet 5 mg PO DAILY Qty: 90 RF: 1 clopidogrel 75 mg tablet 75 mg PO DAILY RF: 0 tamsulosin 0.4 mg capsule 0.8 mg PO DAILY Qty: 180 RF: 3 bicalutamide [Casodex] 50 mg Tablet 50 mg PO DAILY RF: 0 metoprolol tartrate 25 mg tablet 12.5 mg PO BID RF: 0 atorvastatin 40 mg tablet 40 mg PO BEDTIME RF: 0 Lupron Injection 1 dose IM [id number] RF: 0 Referrals: Luke Etienne MD [Primary Care Provider] -
[2019-06-23 13:35] VITALS: BP 162/85; PULSE 80; RESP 20; O2SAT 98
--- NOTE | 2019-06-23 13:36 | PC.NURSE ---
pt report of shortness of breath at rest and fatigue. hx of ablation, prostate cancer.
[2019-06-23 14:00] VITALS: BP 168/89; PULSE 81; RESP 18; O2SAT 99
[2019-06-23] MEDS: FUROSEMIDE 40 MG/4 ML VIAL IV (14:20)
[2019-06-23 14:30] VITALS: BP 172/88; PULSE 82; RESP 15; O2SAT 98
[2019-06-23] MEDS: ACETAMINOPHEN 325 MG TABLET 650 MG PO (14:31)
[2019-06-23 14:59] LABS: D Dimer < 200 ng/mL (<230)
[2019-06-23 15:00] VITALS: BP 147/82; PULSE 84; RESP 15; O2SAT 98
[2019-06-23 15:20] LABS: Influenza A - CEPHEID Flu A POSITIVE (NEGATIVE); Influenza B - CEPHEID Flu B NEGATIVE (NEGATIVE)
[2019-06-23 15:30] VITALS: BP 147/82; PULSE 84; PULSE 88; RESP 19; RESP 23; O2SAT 95; O2SAT 96
== END 2019-06-23 16:03 | disposition home or self-care (01) ==
PROVIDERS: Emergency Medicine; Emergency Provider Emergency Medicine; PCP Student in an Organized Health Care Education/Training Program
DX: J10.1 Influenza due to other identified influenza virus with other respiratory manifestations (principal); I10 Essential (primary) hypertension; I48.20 Chronic atrial fibrillation, unspecified; Z79.01 Long term (current) use of anticoagulants; R51 Headache
CPT/HCPCS: 71045; 80053; 82550; 83690; 83880; 84484; 85025; 85379; 85610; 85730; 87502; 93005; 96374; 99284; 99285; J1940

== ENCOUNTER → 2019-08-23 12:53 | Outpatient (CLI) | payer MEDICARE, OTHER, SELFPAY ==
--- NOTE | 2019-08-23 12:55 | DI.RAD.S_ITS ---
PROCEDURE: XR FINGER RT MIN 2V INDICATIONS: R thumb pain TECHNIQUE: AP hand, 2 views of the 1st finger(s) acquired. COMPARISON: None. FINDINGS: Bones: No fractures or dislocations. No suspicious bony lesions. Soft tissues: Bandaging material is seen involving the right thumb. Soft tissue gas is seen. IMPRESSION: Soft tissue injury is seen involving the right thumb. No definite bony injury is seen. If there is point tenderness (or other clinical suspicion for a fracture not seen on these images) then a dedicated CT could be considered for further evaluation, as clinically appropriate. Dictated by: Rajat Angulo M.D. on 08/23/2019 at 12:20 Approved by: Rajat Angulo M.D. on 08/23/2019 at 12:21
== END ==
PROVIDERS: PCP Student in an Organized Health Care Education/Training Program; Referring Provider Physician Assistant; Visit Provider Physician Assistant
DX: M79.644 Pain in right finger(s) (principal); S69.81XA Other specified injuries of right wrist, hand and finger(s), initial encounter; X58.XXXA Exposure to other specified factors, initial encounter
CPT/HCPCS: 73140

== ENCOUNTER 2020-01-03 03:09 | Emergency (ER) | payer MEDICARE, OTHER, SELFPAY ==
--- NOTE | 2020-01-03 03:14 | ED_ITS ---
HPI - General Adult General Chief complaint: Back Pain/Injury Stated complaint: thinks has kidney stone Time Seen by Provider: 01/03/20 03:13 Source: patient Mode of arrival: Ambulatory Limitations: no limitations History of Present Illness HPI narrative: 69-year-old male here for evaluation of left-sided flank and abdominal pain. He states that was a fairly sudden onset that woke him from sleep at approximately 0200 hours in the morning. He states that it feels like his prior kidney stones. He has had approximately 10 kidney stones in the past. He has passed all of them on his own. He states this feels just like prior stones. No fevers. Has not tried anything for symptoms prior to arrival Related Data Home Medications Medication Instructions Recorded Confirmed losartan [Cozaar] 100 mg PO DAILY #0 02/12/16 12/05/19 Lupron Injection 1 dose IM [id number] 05/17/19 12/05/19 atorvastatin 40 mg PO BEDTIME 05/17/19 12/05/19 metoprolol tartrate 12.5 mg PO BID 05/17/19 12/05/19 abiraterone 250 mg tablet 1,000 mg PO DAILY 06/26/19 12/05/19 apixaban 5 mg tablet 5 mg PO BID 11/27/19 12/05/19 quetiapine 25 mg tablet 25 mg PO BID 11/27/19 12/05/19 prednisone 5 mg tablet 5 mg PO BID 12/05/19 12/05/19 Previous Rx's Medication Instructions Recorded tamsulosin 0.4 mg capsule 0.8 mg PO DAILY #180 cap 01/08/19 sertraline 50 mg tablet 100 mg PO DAILY #30 tab 12/05/19 hydrocodone-acetaminophen [[place]] 1 tab PO Q4-6H PRN #10 tab 01/03/20 ondansetron 4 mg PO Q6H PRN #10 tab 01/03/20 Allergies Allergy/AdvReac Type Severity Reaction Status Date / Time venom-honey bee Allergy Unknown Verified 12/05/19 10:58 [BEE VENOM (HONEY BEE)] lisinopril [LISINOPRIL] AdvReac Mild COUGH Verified 12/05/19 10:58 Review of Systems Constitutional Constitutional: Denies fever(s) Cardiovascular Cardiovascular: Denies chest pain and Denies dyspnea Respiratory Respiratory: Denies dyspnea Gastrointestinal Gastrointestinal: Reports abdominal pain, Denies nausea and Denies vomiting Genitourinary Genitourinary: Reports dysuria and Reports urinary frequency Genitourinary: Reports urinary frequency and Reports dysuria Musculoskeletal Musculoskeletal: Reports back pain (Left flank pain) and Denies myalgias Integumentary/Breasts Skin/Breast: Denies rash Neurologic Neurologic: Denies behavioral changes Psychiatric Psychiatric: Denies behavioral changes Hematologic/Lymphatic Hematologic/Lymphatic: Denies easy bleeding and Denies easy bruising Patient History Medical History Atrial fibrillation (Chronic ~2007) Bilateral knee pain (Chronic) BPH (benign prostatic hyperplasia) (Chronic) Cardiomyopathy (Chronic Unknown) Chicken pox (Resolved) Colon polyps (Resolved Unknown) Erectile dysfunction (Chronic) Hyperlipemia (Chronic Unknown) Hypertension (Chronic Unknown) Mitral valve regurgitation (Resolved Unknown) Prostate cancer (Acute) Rubella (Resolved) Sleep apnea (Chronic ~1999) Tinnitus of both ears (Chronic ~2013) Surgical History Anesthesia (Resolved) History of coronary artery stent placement (Resolved ~2018) Hx of mitral valve repair (Resolved 04/2008) Hx of right knee surgery (Resolved 12/2009) Family History Father Diabetes mellitus History of heart disease Hyperlipidemia Hypertension Mother Cancer Diabetes mellitus History of heart disease Hyperlipidemia Hypertension Grandfather Diabetes mellitus Grandmother No problems noted. Grandfather No problems noted. Social History Smoking Status: Never smoker alcohol intake: never substance use type: does not use Smoking Status: Never smoker alcohol intake frequency: holidays/special occasions only Substance Use Type: does not use Exam Initial Vital Signs Initial Vital Signs: Vital Signs Temperature 97.9 F 01/03/20 03:16 Pulse Rate 80 01/03/20 03:16 Respiratory Rate 18 01/03/20 03:16 Blood Pressure 121/87 01/03/20 03:16 Pulse Oximetry 97 01/03/20 03:16 Const General: cooperative and comfortable Limitations: mental status not altered HENMT Head: normal to inspection and normocephalic Resp Effort & Inspection: normal respiratory effort Auscultation: clear to auscultation bilaterally Cardio Rate: regular rate Rhythm: regular rhythm GI Inspection: non-distended Palpation: soft Back/Spine/Pelvis Other: Tenderness to palpation left flank Skin Lesions: no lesions Rashes: no rashes Neuro General: patient alert and patient awake Cognition: normal cognition Speech: speech normal Extrem General: capillary refill normal Psych Appearance: grossly normal and well kempt Course Orders Ordered: ED Orders 01/03/20 03:23 Basic Metabolic Panel Stat Complete Blood Count AUTO DIFF Stat Discontinued Medications Acetaminophen (Tylenol) 975 mg PO NOW ONE Stop: 01/03/20 03:27 Last Admin: 01/03/20 03:39 Dose: 975 mg Documented by: JANIN Hydrocodone Bitart/Acetaminophen (Vicodin 5/325 Prepack) 1 bottle MISC SEEINSTR ONE Stop: 01/03/20 04:27 Lidocaine HCl 7 ml/ Sodium (Chloride) 57 mls @ 342 mls/hr IV NOW ONE Stop: 01/03/20 03:27 Last Infusion: 01/03/20 03:58 Dose: 0 mls/hr Documented by: THANHARTGONZALO Admin: 01/03/20 03:41 Dose: 342 mls/hr Documented by: EDGARDO Ketorolac Tromethamine (Toradol) 30 mg IV NOW ONE Stop: 01/03/20 03:27 Last Admin: 01/03/20 03:39 Dose: 30 mg Documented by: THANHARTGONZALO Ondansetron HCl (Zofran Odt Prepack) 1 bottle MISC SEEINSTR ONE Stop: 01/03/20 04:27 Vital Signs Vital signs: Vital Signs - 8 hr 01/03/20 03:16 Temperature 97.9 F Pulse Rate 80 Respiratory Rate 18 Blood Pressure 121/87 Pulse Oximetry 97 Medical Decision Making Lab Data Lab results reviewed: Yes I reviewed the patient's lab results. Result diagrams: 01/03/20 03:23 01/03/20 03:23 Labs: Lab Results 01/03/20 01/03/20 Range/Units 03:23 03:23 WBC 8.6 (4.5-11.0) X10^3/uL RBC 4.47 L (4.5-5.9) X10^6/uL Hgb 14.1 (13.5-17.5) g/dL Hct 41.0 (41-53) % MCV 91.8 (80-100) fL MCH 31.5 (26-34) PG MCHC 34.3 (30-36) % RDW 13.7 (11.6-14.8) % Plt Count 141 L (150-400) X10^3/uL Neut % (Auto) 74.5 (50-75) % Lymph % (Auto) 18.0 L (25-40) % [place] % (Auto) 6.3 (3-14) % Eos % (Auto) 0.6 L (2-4) % Baso % (Auto) 0.6 (0-2) % Neut # (Auto) 6400 (2130-5772) /uL Lymph # (Auto) 1500 (3183-1984) /uL [place] # (Auto) 500 (0-900) /uL Eos # (Auto) 0 (0-450) /uL Baso # (Auto) 0 (0-100) /uL Sodium 135 L (137-145) mmol/L Potassium 4.5 (3.4-5.1) mmol/L Chloride 104 (98-107) mmol/L Carbon Dioxide 20 L (22-32) mmol/L BUN 27 H (9-20) mg/dL Creatinine 1.16 (0.66-1.25) mg/dL Estimated GFR > 60.0 (>60) mL/min BUN/Creatinine Ratio 23.3 H (6-22) Glucose 184 H (80-110) mg/dL Calcium 9.0 (8.4-10.2) mg/dL Urine Dip Bedside Urine Glucose Negative Bedside Urine Bilirubin - Negative Bedside Urine Ketone - Negative Urine Specific [place] 1.030 Bedside Urine Occult Blood +++ Bedside Urine pH 5.5 Bedside Urine Protein +/- 15 Bedside Urine Urobilinogen - Negative Bedside Urine Nitrite - Negative Bedside Urine Leukocytes - Negative Esterase Point of care testing: Urine Dip Bedside Urine Glucose Negative Bedside Urine Bilirubin - Negative Bedside Urine Ketone - Negative Urine Specific [place] 1.030 Bedside Urine Occult Blood +++ Bedside Urine pH 5.5 Bedside Urine Protein +/- 15 Bedside Urine Urobilinogen - Negative Bedside Urine Nitrite - Negative Bedside Urine Leukocytes - Negative Esterase MDM Narrative Medical decision making narrative: Urine has blood but no signs of infection. Kidney functions unremarkable. Patient had a almost complete resolution of symptoms after medications here. Patient has had greater than 10 kidney stones in the past he states this feels just like prior stone. I feel we can hold on a CT scan for now. We did discuss the risks and benefits this to include not knowing this I/location of the stone however given his clinical presentation today and the fact that he has passed all prior stones I feel that we can hold on a CT scan. The patient expressed understanding and agreement of this. We discussed return precautions and follow-up instructions. He expressed understanding and agreement. Discharge Plan Departure Patient Disposition: Home Clinical Impression: Renal colic on left side Instructions: Kidney Stones -- Adult Activity Restrictions/Additional Instructions: Take all the medications as directed. Contact her primary provider for follow- up. Return to the emergency department for any new or worsening symptoms to include fevers, pain that is not controlled with medications, inability to urinate, or any other concerning symptoms. Prescriptions: New hydrocodone-acetaminophen [[place]] 5-325 mg tablet 1 tab PO Q4-6H PRN (Reason: pain) Qty: 10 RF: 0 ondansetron 4 mg tablet,disintegrating 4 mg PO Q6H PRN (Reason: nausea and vomiting) Qty: 10 RF: 0 No Action losartan [Cozaar] 100 MG tablet 100 mg PO DAILY Qty: 0 RF: 0 apixaban 5 mg tablet 5 mg PO BID RF: 0 quetiapine 25 mg tablet 25 mg PO BID RF: 0 prednisone 5 mg tablet 5 mg PO BID RF: 0 sertraline 50 mg tablet 100 mg PO DAILY Qty: 30 RF: 0 tamsulosin 0.4 mg capsule 0.8 mg PO DAILY Qty: 180 RF: 3 abiraterone [Zytiga] 250 mg tablet 1,000 mg PO DAILY RF: 0 metoprolol tartrate 25 mg tablet 12.5 mg PO BID RF: 0 atorvastatin 40 mg tablet 40 mg PO BEDTIME RF: 0 Lupron Injection 1 dose IM [id number] RF: 0 Referrals: Luke Etienne MD [Primary Care Provider] -
[2020-01-03 03:16] VITALS: BP 121/87; PULSE 80; RESP 18; TEMP 36.6; O2SAT 97
--- NOTE | 2020-01-03 03:28 | PC.NURSE ---
Patient reports left sided flank pain of 5/10 woke him during sleep. Reports has history of kidney stones and this time feels the same. Patient states pain is left sided only, and has moved from left rear flank to left side. Patient also reports slight nausea and feeling bloated. Reports last bowel movement was yesterday and was normal for patient. Denies problems with urination.
[2020-01-03 03:31] LABS: Add Manual Diff / Slide Review NO; Basophils Absolute Auto 0 /uL (0-100); Basophils Percent Auto 0.6 % (0-2); Eosinophils Absolute Auto 0 /uL (0-450); Eosinophils Percent Auto 0.6 % (2-4); Hemoglobin 14.1 g/dL (13.5-17.5); Lymphocytes Absolute Auto 1500 /uL (1100-4500); Mean Corpuscular HGB Conc 34.3 % (30-36); Mean Corpuscular Hemoglobin 31.5 PG (26-34); Mean Corpuscular Volume 91.8 fL (80-100); Monocytes Absolute Auto 500 /uL (0-900); Monocytes Percent Auto 6.3 % (3-14); Neutrophils Absolute Auto 6400 /uL (1500-7000); Neutrophils Percent Auto 74.5 % (50-75); Platelet Count 141 X10^3/uL (150-400); Red Blood Cell Count 4.47 X10^6/uL (4.5-5.9); Red Cell Distribution Width 13.7 % (11.6-14.8); White Blood Cell Count 8.6 X10^3/uL (4.5-11.0)
[2020-01-03] MEDS: ACETAMINOPHEN 325 MG TABLET 975 MG PO (03:39)
[2020-01-03] MEDS: KETOROLAC 60 MG/2 ML VIAL 30 MG IV (03:39)
[2020-01-03 03:41] LABS: BUN Creatinine Ratio 23.3 (6-22); Blood Urea Nitrogen 27 mg/dL (9-20); Carbon Dioxide 20 mmol/L (22-32); Chloride 104 mmol/L (98-107); Estimated Glomerular Filt Rate > 60.0 mL/min (>60); Glucose 184 mg/dL (80-110); HEMOLYSIS 22 (0-50); Potassium 4.5 mmol/L (3.4-5.1); Sodium 135 mmol/L (137-145)
[2020-01-03] MEDS: LIDOCAINE 2% 7 ML in SODIUM CHLORIDE 0.9% 50 ML 342 ML IV (03:41)
[2020-01-03] MEDS: ONDANSETRON 4 MG ODT PREPACK 1 BOTTLE MISC (04:33)
[2020-01-03] MEDS: HYDROCODONE/ACET 5/325 PREPACK 1 BOTTLE MISC (04:33)
[2020-01-03 04:38] VITALS: BP 118/81; PULSE 98; RESP 16; O2SAT 98
== END 2020-01-03 04:39 | disposition home or self-care (01) ==
PROVIDERS: Emergency Provider Emergency Medicine; PCP Student in an Organized Health Care Education/Training Program
DX: N23 Unspecified renal colic (principal); R30.0 Dysuria; M54.9 Dorsalgia, unspecified
CPT/HCPCS: 36415; 80048; 81003; 85025; 96365; 96375; 99284; J1885

== ENCOUNTER → 2020-01-16 13:51 | Outpatient (CLI) | payer MEDICARE, OTHER, SELFPAY ==
--- NOTE | 2020-01-16 13:53 | DI.RAD.S_ITS ---
PROCEDURE: XR HIP W PEL IF DONE RT 2V INDICATIONS: Right hip pain, lateral TECHNIQUE: AP pelvis with lateral view(s) of the right hip(s). COMPARISON: [facility], , CT KUB, 04/17/2006, 3:46. FINDINGS: Bones: No fractures or dislocations. Pelvic ring appears intact. No suspicious bony lesions. Soft tissues: The visualized bowel gas pattern is normal. No suspicious soft tissue calcifications. IMPRESSION: Minimal hip joint osteoarthritis, no trauma found to the hip joint is seen. Note is made of an area of sclerosis abutting the middle 3rd of the sacroiliac joint on the right, measuring approximately 2.9 cm craniocaudad and 1.5 cm transverse. A recent comparison CT or plain film assessment of that area is not available for review. Depending on the clinical status follow-up by MR scanning of the right hip and right hemipelvis may be warranted. Dictated by: Riccardo Jerry M.D. on 01/16/2020 at 16:25 Approved by: Riccardo Jerry M.D. on 01/16/2020 at 16:30
== END ==
PROVIDERS: PCP Student in an Organized Health Care Education/Training Program; Referring Provider Student in an Organized Health Care Education/Training Program; Visit Provider Student in an Organized Health Care Education/Training Program
DX: M25.551 Pain in right hip (principal); G89.29 Other chronic pain
CPT/HCPCS: 73502

== ENCOUNTER → 2020-04-04 13:04 | Outpatient (CLI) | payer MEDICARE, OTHER, SELFPAY ==
--- NOTE | 2020-04-04 13:06 | DI.MRI.S_ITS ---
PROCEDURE: MR LUMBAR SPINE WO CON INDICATIONS: Worsening BLE weakness TECHNIQUE: Noncontrast sagittal T1 spin echo and T2 fast echo, sagittal STIR, axial T1 and T2 fast spin echo through the lumbar spine. In cases with scoliosis, additional coronal T2 fast spin echo may be performed. COMPARISON: None. FINDINGS: Image quality: Excellent. Alignment and Curvature: There is normal bony alignment. Bone Marrow: Marrow is of normal overall signal. No acute vertebral body compression fractures. Spinal Cord: Conus medullaris terminates at the L1 level. Visualized cord demonstrates normal signal and size. Paraspinous Soft Tissues: No paravertebral masses. L1-L2: Eavx-za-glwzawfi degenerative disc disease with a small posterior midline transverse disc bulge. On axial imaging there is minimal facet degeneration and mild anterior spinal stenosis with slight crowding of the nerve root centrally as a result.. L2-L3: At this level the degenerative changes is mild. There is a slight posterior disc bulge without spinal stenosis. Mild facet osteoarthritis is present with foraminal stenosis slightly greater on the right than the left, potentially impinging on the course of the right L2 nerve root. L3-L4: At this level the degenerative disc disease is moderate and there is a posterior broad-based transverse moderate disc protrusion. Facet osteoarthritis is moderately severe and combines with ligamentum flavum hypertrophy and the degenerative changes more anteriorly to produce a moderately severe spinal stenosis crowding nerve roots within the thecal sac without intervening CSF at this level. L4-L5: The degenerative changes at this level are near severe at the disc space, and moderately severe at the facet joints, with moderate ligamentum flavum hypertrophy. There is a posterior transverse broad-base disc bulge, and also slight retrolisthesis of L4 on L5. These factors all combine to produce moderately tyyhhu-mc-igchmn spinal stenosis crowding nerve roots within the thecal sac and effacing much of the CSF from between nerve roots. Foraminal stenosis is near severe also at this level as a result. L5-S1: Degenerative disc disease at this level is [id number], facet osteoarthritis is moderate. No significant spinal stenosis, moderate foraminal stenosis.. IMPRESSION: No herniated disc fragment is seen. The degenerative changes present involve both disc disease and facet osteoarthritis. These factors combine with mild ligamentous laxity to produce near severe to severe spinal stenosis at L3-4 and L4-5. Multilevel foraminal stenosis also is present and therefore multilevel radiculopathy would be expected in this patient as detailed by level in the body of the report above. Dictated by: Riccardo Jerry M.D. on 04/06/2020 at 16:56 Approved by: Riccardo Jerry M.D. on 04/06/2020 at 17:02
== END ==
PROVIDERS: PCP Student in an Organized Health Care Education/Training Program; Referring Provider Student in an Organized Health Care Education/Training Program; Visit Provider Student in an Organized Health Care Education/Training Program
DX: R53.1 Weakness (principal); R29.2 Abnormal reflex; M48.061 Spinal stenosis, lumbar region without neurogenic claudication
CPT/HCPCS: 72148

== ENCOUNTER → 2020-07-24 14:32 | Outpatient (CLI) | payer MEDICARE, OTHER, SELFPAY ==
[2020-07-25 15:03] LABS: PSA Ultrasensitive 0.261 ng/mL (0.000-4.000)
== END ==
PROVIDERS: PCP Student in an Organized Health Care Education/Training Program; Referring Provider Transplant Surgery; Visit Provider Transplant Surgery
DX: C61 Malignant neoplasm of prostate (principal)
CPT/HCPCS: 36415; 84153

== ENCOUNTER → 2020-10-30 13:05 | Outpatient (CLI) | payer MEDICARE, OTHER, SELFPAY ==
[2020-10-30 14:47] LABS: Prostate Specific Antigen 0.191 ng/mL (0.10-4.00)
== END ==
PROVIDERS: PCP Student in an Organized Health Care Education/Training Program; Referring Provider Transplant Surgery; Visit Provider Transplant Surgery
DX: C61 Malignant neoplasm of prostate (principal)
CPT/HCPCS: 36415; 84153

== ENCOUNTER → 2020-11-07 10:59 | Outpatient (CLI) | payer MEDICARE, OTHER, SELFPAY ==
[2020-11-07 11:34] LABS: Hematocrit 38.9 % (41-53); Hemoglobin 13.3 g/dL (13.5-17.5); Mean Corpuscular HGB Conc 34.1 % (30-36); Mean Corpuscular Hemoglobin 30.3 PG (26-34); Mean Corpuscular Volume 88.9 fL (80-100); Platelet Count 156 X10^3/uL (150-400); Red Blood Cell Count 4.38 X10^6/uL (4.5-5.9); Red Cell Distribution Width 14.3 % (11.6-14.8); White Blood Cell Count 7.3 X10^3/uL (4.5-11.0)
[2020-11-07 11:44] LABS: BUN Creatinine Ratio 31.3 (6-22); Blood Urea Nitrogen 20 mg/dL (9-20); Carbon Dioxide 26 mmol/L (22-32); Chloride 105 mmol/L (98-107); Estimated Glomerular Filt Rate > 60.0 mL/min (>60); Glucose 172 mg/dL (80-110); HEMOLYSIS 16 (0-50); Potassium 4.3 mmol/L (3.4-5.1); Sodium 138 mmol/L (137-145)
[2020-11-07 12:18] LABS: Hemoglobin A1C% w Est Avg Glu 8.3 % (4.0-6.0)
== END ==
PROVIDERS: PCP Student in an Organized Health Care Education/Training Program; Referring Provider Transplant Surgery; Visit Provider Transplant Surgery
DX: C61 Malignant neoplasm of prostate (principal); R81 Glycosuria
CPT/HCPCS: 36415; 80048; 83036; 85027

== ENCOUNTER → 2021-01-07 15:46 | Outpatient (CLI) | payer MEDICARE, OTHER, SELFPAY ==
[2021-01-07 17:17] LABS: Prostate Specific Antigen 0.174 ng/mL (0.10-4.00)
== END ==
PROVIDERS: PCP Student in an Organized Health Care Education/Training Program; Referring Provider Transplant Surgery; Visit Provider Transplant Surgery
DX: C61 Malignant neoplasm of prostate (principal)
CPT/HCPCS: 36415; 84153

== ENCOUNTER → 2021-01-13 15:27 | Outpatient (CLI) | payer MEDICARE, OTHER, SELFPAY ==
[2021-01-13 17:47] LABS: Creatinine Urine Random 107.8 mg/dL
[2021-01-13 17:52] LABS: Microalbumin Urine Random < 0.6 mg/dL (0-1.6)
== END ==
PROVIDERS: PCP Student in an Organized Health Care Education/Training Program; Referring Provider Student in an Organized Health Care Education/Training Program; Visit Provider Student in an Organized Health Care Education/Training Program
DX: E11.9 Type 2 diabetes mellitus without complications (principal)
CPT/HCPCS: 82043; 82570

== ENCOUNTER 2021-02-05 19:11 | Emergency (ER) | payer MEDICARE, OTHER, SELFPAY ==
[2021-02-05 19:26] VITALS: BP 149/87; PULSE 76; RESP 20; TEMP 36.2; O2SAT 96
--- NOTE | 2021-02-05 19:46 | ED.BACK ---
HPI - Back Pain/Injury <Shakir Pickering PA-C - Last Filed: 02/05/21 20:09> General Chief Complaint: Back Pain/Injury Stated Complaint: kidney pain x3 hours/stones? Time Seen by Provider: 02/05/21 19:38 Source: patient Limitations: no limitations History of Present Illness HPI Narrative: Delmar presents today with chief complaint of left flank that radiates to his groin which started abruptly about 4 hours ago. He has had increased frequency of urination and of good of blood in his urine also. He has longstanding history of kidney stones and states that this feels the same as his previous kidney stone attacks. States that he does not feel like this is a big 1 but reports that it still hurts. He takes Flomax regularly and has been taking his doses as prescribed. He Took 2 doses of Tylenol earlier today which did not seem to be helping his symptoms. He denies any significant fever, constipation, diarrhea, nausea, vomiting, chest pain, shortness of breath or any other acute concerns or complaints at this time. Related Data Home Medications Medication Instructions Recorded Confirmed Lupron Injection 1 dose IM [id number] 05/17/19 01/13/21 atorvastatin 40 mg tablet 40 mg PO BEDTIME 05/17/19 01/13/21 abiraterone 250 mg tablet (Zytiga) 1,000 mg PO DAILY 06/26/19 01/13/21 prednisone 5 mg tablet 5 mg PO BID 12/05/19 01/13/21 losartan 25 mg tablet 25 mg PO DAILY 05/01/20 01/13/21 metformin 500 mg tablet 500 mg PO TID 01/13/21 01/13/21 metoprolol tartrate 100 mg tablet 50 mg PO BID tab 01/13/21 01/13/21 sertraline 100 mg tablet 150 mg PO DAILY tab 01/13/21 01/13/21 Previous Rx's Medication Instructions Recorded tamsulosin 0.4 mg capsule See Rx Instructions .ROUTE 01/03/20 .COMPLEX #180 cap CPAP #1 ea 10/14/20 quetiapine 25 mg tablet 25 mg PO BID #180 tab 10/19/20 enoxaparin 120 mg/0.8 mL 120 mg SUBCUT DAILY #8 ml 01/13/21 subcutaneous syringe warfarin 5 mg tablet 5 mg PO DAILY #30 tab 01/13/21 hydrocodone 5 mg-acetaminophen 325 1 tab PO Q4H PRN #10 tab 02/05/21 mg tablet ondansetron 4 mg disintegrating 4 mg PO Q6H PRN #10 tab 02/05/21 tablet Allergies Allergy/AdvReac Type Severity Reaction Status Date / Time venom-honey bee Allergy Unknown Verified 01/13/21 14:35 [BEE VENOM (HONEY BEE)] lisinopril [LISINOPRIL] AdvReac Mild COUGH Verified 01/13/21 14:35 Review of Systems <Shakir Pickering PA-C - Last Filed: 02/05/21 20:09> Review of Systems Narrative: As per HPI Patient History <Shakir Pickering PA-C - Last Filed: 02/05/21 20:09> Medical History (Updated 02/05/21 @ 19:53 by Shakir Pickering PA-C) Atrial fibrillation (~2007) Bilateral knee pain BPH (benign prostatic hyperplasia) Cardiomyopathy (Unknown) Chicken pox Colon polyps (Unknown) Erectile dysfunction Hyperlipemia (Unknown) Hypertension (Unknown) Mitral valve regurgitation (Unknown) Prostate cancer Rubella Sleep apnea (~1999) Tinnitus of both ears (~2013) Surgical History Anesthesia History of coronary artery stent placement (~2018) Hx of mitral valve repair (04/2008) Hx of right knee surgery (12/2009) Family History Father Diabetes mellitus History of heart disease Hyperlipidemia Hypertension Mother Cancer Diabetes mellitus History of heart disease Hyperlipidemia Hypertension Grandfather Diabetes mellitus Grandmother No problems noted. Grandfather No problems noted. Social History Smoking Status: Never smoker alcohol intake: never substance use type: does not use Smoking Status: Never smoker alcohol intake frequency: holidays/special occasions only Substance Use Type: does not use Exam <Shakir Pickering PA-C - Last Filed: 02/05/21 20:09> Narrative Exam Narrative: Exam Narrative: Const General: cooperative, healthy appearing, comfortable, no acute distress, well developed and well groomed Nutritional Appearance: average body habitus Orientation: alert and oriented x3 HENMT Head: normal to inspection and atraumatic Ears: hearing grossly normal bilaterally Nose: external nose normal and nares normal Face and sinus: normal facial exam Neck Neck: normal visual inspection and supple Resp Effort & Inspection: normal respiratory effort, able to speak in complete sentences, no audible wheezes, not labored, no nasal flaring and no respiratory distress, clear to auscultation bilaterally Cardiac Irregularly irregular rhythm, regular rate. GI Nondistended, nontender to palpation, no masses noted, normal bowel sounds. No CVA tenderness bilaterally Neuro General: alert, oriented x3, gait normal, tone normal and moves all extremities Cognition: normal cognition Speech: speech normal Gait: normal gait Psych Appearance: grossly normal and well kempt Mental Status: mental status grossly normal Speech and Movement: speech and movement normal Mood: congruent mood Affect: normal affect Initial Vital Signs Initial Vital Signs: Vital Signs Temperature 97.2 F L 02/05/21 19:26 Pulse Rate 76 02/05/21 19:26 Respiratory Rate 20 02/05/21 19:26 Blood Pressure 149/87 H 02/05/21 19:26 Pulse Oximetry 96 02/05/21 19:26 <Sonal Burgess MD - Last Filed: 02/06/21 02:45> Initial Vital Signs Initial Vital Signs: Vital Signs Temperature 97.2 F L 02/05/21 19:26 Pulse Rate 76 02/05/21 19:26 Respiratory Rate 20 02/05/21 19:26 Blood Pressure 149/87 H 02/05/21 19:26 Pulse Oximetry 96 02/05/21 19:26 Course <Shakir Pickering PA-C - Last Filed: 02/05/21 20:09> Orders Ordered: ED Orders 02/05/21 19:20 Urinalysis and Microscopic Stat Discontinued Medications Hydrocodone Bitart/Acetaminophen (Hydrocodone/Acet 5/325 Tablet) 1 tab PO NOW ONE Stop: 02/05/21 19:44 Last Admin: 02/05/21 19:50 Dose: 1 tab Documented by: CONCHA Ketorolac Tromethamine (Ketorolac 30 Mg/Ml Vial) 30 mg IM NOW ONE Stop: 02/05/21 19:44 Last Admin: 02/05/21 19:50 Dose: 30 mg Documented by: CONCHA Vital Signs Vital signs: Vital Signs - 8 hr 02/05/21 19:26 02/05/21 20:26 Temperature 97.2 F L Pulse Rate 76 84 Respiratory Rate 20 16 Blood Pressure 149/87 H 138/78 Pulse Oximetry 96 98 <Sonal Burgess MD - Last Filed: 02/06/21 02:45> Orders Ordered: ED Orders 02/05/21 19:20 Urinalysis and Microscopic Stat Discontinued Medications Hydrocodone Bitart/Acetaminophen (Hydrocodone/Acet 5/325 Tablet) 1 tab PO NOW ONE Stop: 02/05/21 19:44 Last Admin: 02/05/21 19:50 Dose: 1 tab Documented by: CONCHA Ketorolac Tromethamine (Ketorolac 30 Mg/Ml Vial) 30 mg IM NOW ONE Stop: 02/05/21 19:44 Last Admin: 02/05/21 19:50 Dose: 30 mg Documented by: CONCHA Vital Signs Vital signs: Vital Signs - 8 hr 02/05/21 19:26 02/05/21 20:26 Temperature 97.2 F L Pulse Rate 76 84 Respiratory Rate 20 16 Blood Pressure 149/87 H 138/78 Pulse Oximetry 96 98 MDM - Back Pain/Injury <Shakir Pickering PA-C - Last Filed: 02/05/21 20:09> Lab Data Labs: Lab Results 02/05/21 Range/Units 19:20 Urine Color Yellow Urine Appearance Clear Urine pH 5.0 (4.5-8.0) Ur Specific [place] 1.020 (1.000-1.035) Urine Protein Negative (Negative) Urine Glucose (UA) 1+ H (Negative) g/dL Urine Ketones Negative (NEGATIVE) Urine Occult Blood 2+ H (Negative) Urine Nitrate Negative (Negative) Urine Bilirubin Negative (NEGATIVE) Urine Urobilinogen 0.2 (0.2) E.U./dL Ur Leukocyte Esterase Negative (NEGATIVE) Urine RBC 1-5/hpf (0-5/HPF) Urine WBC 0-1/hpf (0-5/HPF) Ur Squamous Epith Cells 0-1 /hpf (0-5/HPF) Urine Bacteria None seen (None) Urine Mucus 2+ H (Negative) Ur Culture Indicated? Cult not indicated Urine Dip Bedside Urine Glucose 100 mg/dl Bedside Urine Bilirubin - Negative Bedside Urine Ketone - Negative Urine Specific [place] 1.025 Bedside Urine Occult Blood ++ Bedside Urine pH 6.0 Bedside Urine Protein - Negative Bedside Urine Urobilinogen - Negative Bedside Urine Nitrite - Negative Bedside Urine Leukocytes - Negative Esterase MDM Narrative Medical decision making narrative: Patient has a history of kidney stones and has a presentation that is consistent with kidney stone as the etiology of his symptoms. He has hematuria. Given his history and presentation, I do not think that a full laboratory and diagnostic workup is necessary at this time. I discussed the options of treatment for the most likely condition which is kidney stones and or workup with blood work and diagnostic imaging. Patient strongly preferred just treating for kidney stones. We will do that at this time with strict ER return precautions discussed. Patient verbalizes understanding and agrees to plan and has no further concerns at this time. Thank you A [id number] system was used with the dictation of this note. Please disregard any spelling or grammatical errors. <Sonal Burgess MD - Last Filed: 02/06/21 02:45> Lab Data Labs: Lab Results 02/05/21 Range/Units 19:20 Urine Color Yellow Urine Appearance Clear Urine pH 5.0 (4.5-8.0) Ur Specific [place] 1.020 (1.000-1.035) Urine Protein Negative (Negative) Urine Glucose (UA) 1+ H (Negative) g/dL Urine Ketones Negative (NEGATIVE) Urine Occult Blood 2+ H (Negative) Urine Nitrate Negative (Negative) Urine Bilirubin Negative (NEGATIVE) Urine Urobilinogen 0.2 (0.2) E.U./dL Ur Leukocyte Esterase Negative (NEGATIVE) Urine RBC 1-5/hpf (0-5/HPF) Urine WBC 0-1/hpf (0-5/HPF) Ur Squamous Epith Cells 0-1 /hpf (0-5/HPF) Urine Bacteria None seen (None) Urine Mucus 2+ H (Negative) Ur Culture Indicated? Cult not indicated Urine Dip Bedside Urine Glucose 100 mg/dl Bedside Urine Bilirubin - Negative Bedside Urine Ketone - Negative Urine Specific [place] 1.025 Bedside Urine Occult Blood ++ Bedside Urine pH 6.0 Bedside Urine Protein - Negative Bedside Urine Urobilinogen - Negative Bedside Urine Nitrite - Negative Bedside Urine Leukocytes - Negative Esterase Discharge Plan Departure Patient Disposition: Home Clinical Impression: Acute left flank pain, History of kidney stones Hematuria Qualifiers: Hematuria type: other microscopic Qualified Code(s): R31.29 - Other microscopic hematuria Instructions: DI for Kidney Stones Activity Restrictions/Additional Instructions: It was very nice to meet you this evening. Please use the medication as needed to help with your pain. Recommend hydrating well and continuing to take the Flomax. Return precautions include fever, decreased urine output, increased pain, chills or any other new or worsening complaints. Please call your PCP on Monday to schedule a follow-up appointment. Thank you Shakir Pickering PA-C Prescriptions: New hydrocodone-acetaminophen 5-325 mg tablet 1 tab PO Q4H PRN (Reason: pain) Qty: 10 RF: 0 ondansetron 4 mg tablet,disintegrating 4 mg PO Q6H PRN (Reason: nausea and vomiting) Qty: 10 RF: 0 No Action tamsulosin 0.4 mg capsule See Rx Instructions .ROUTE .COMPLEX Qty: 180 RF: 3 (DME) CPAP See Rx Instructions .Route .MEDSUPPLY Qty: 1 RF: 0 quetiapine 25 mg tablet 25 mg PO BID Qty: 180 RF: 1 metoprolol tartrate 100 mg tablet 50 mg PO BID RF: 0 prednisone 5 mg tablet 5 mg PO BID RF: 0 abiraterone [Zytiga] 250 mg tablet 1,000 mg PO DAILY RF: 0 losartan 25 mg tablet 25 mg PO DAILY RF: 0 metformin 500 mg tablet 500 mg PO TID RF: 0 sertraline 100 mg tablet 150 mg PO DAILY RF: 0 enoxaparin 120 mg/0.8 mL syringe 120 mg SUBCUT DAILY Qty: 8 RF: 1 warfarin 5 mg tablet 5 mg PO DAILY Qty: 30 RF: 0 atorvastatin 40 mg tablet 40 mg PO BEDTIME RF: 0 Lupron Injection 1 dose IM [id number] RF: 0 Referrals: Luke Etienne MD [Primary Care Provider] - <Sonal Burgess MD - Last Filed: 02/06/21 02:45> [facility] I was immediately available in the department for consultation throughout this patient's visit. I agree with documentation as above. Sonal Burgses MD
[2021-02-05] MEDS: HYDROCODONE/ACET 5/325 TABLET 1 TAB PO (19:50)
[2021-02-05] MEDS: KETOROLAC 30 MG/ML VIAL IM (19:50)
[2021-02-05 19:52] LABS: Appearance Urine UA CLEAR; Bilirubin Urine UA NEGATIVE (NEGATIVE); Color Urine UA YELLOW; Glucose Urine UA 1+ g/dL (Negative); Ketones Urine UA NEGATIVE (NEGATIVE); Leukocyte Esterase Urine UA NEGATIVE (NEGATIVE); Nitrite Urine UA NEGATIVE (Negative); Occult Blood Urine UA 2+ (Negative); Protein Urine UA NEGATIVE (Negative); Urobilinogen Urine UA 0.2 E.U./dL (0.2)
[2021-02-05 19:59] LABS: RBC Urine 1-5/HPF (0-5/HPF); Squamous Epithelial Cell Urine 0-1 /HPF (0-5/HPF); WBC Urine 0-1/HPF (0-5/HPF)
[2021-02-05 20:00] LABS: Bacteria Urine None Seen; Culture Indicated Urine Cult Not Indicated; Mucus Urine 2+ (Negative)
[2021-02-05 20:26] VITALS: BP 138/78; PULSE 84; RESP 16; O2SAT 98
== END 2021-02-05 20:27 | disposition home or self-care (01) ==
PROVIDERS: Emergency Provider Physician Assistant; PCP Student in an Organized Health Care Education/Training Program
DX: R10.9 Unspecified abdominal pain (principal); R31.29 Other microscopic hematuria; Z87.442 Personal history of urinary calculi
CPT/HCPCS: 81001; 81003; 96372; 99283; J1885

== ENCOUNTER → 2021-04-14 15:33 | Outpatient (CLI) | payer MEDICARE, OTHER, SELFPAY ==
[2021-04-14 16:19] LABS: Hematocrit 40.1 % (41-53); Hemoglobin 13.7 g/dL (13.5-17.5); Mean Corpuscular HGB Conc 34.1 % (30-36); Mean Corpuscular Hemoglobin 28.4 PG (26-34); Mean Corpuscular Volume 83.5 fL (80-100); Platelet Count 145 X10^3/uL (150-400); Red Cell Distribution Width 17.2 % (11.6-14.8); White Blood Cell Count 6.8 X10^3/uL (4.5-11.0)
[2021-04-14 16:33] LABS: Hemoglobin A1C% w Est Avg Glu 6.7 % (4.0-6.0)
[2021-04-14 17:36] LABS: INR 2.3 (0.9-1.3); Prothrombin Time 26.7 SECONDS (10.1-12.7)
[2021-04-14 17:48] LABS: Alanine Aminotransferase 21 IU/L (<50); Albumin 4.3 g/dL (3.5-5.0); Alkaline Phosphatase 73 U/L (38-126); Aspartate Aminotransferase 20 IU/L (17-59); Bilirubin Total 0.9 mg/dL (0.2-1.3); Blood Urea Nitrogen 20 mg/dL (9-20); Calcium 9.4 mg/dL (8.4-10.2); Carbon Dioxide 26 mmol/L (22-32); Chloride 101 mmol/L (98-107); Estimated Glomerular Filt Rate > 60.0 mL/min (>60); Globulin 2.1 g/dL (1.7-4.1); Glucose 140 mg/dL (80-110); HEMOLYSIS < 15 (0-50); Potassium 4.9 mmol/L (3.4-5.1); Sodium 138 mmol/L (137-145); Total Protein 6.4 g/dL (6.3-8.2)
== END ==
PROVIDERS: PCP Student in an Organized Health Care Education/Training Program; Referring Provider Student in an Organized Health Care Education/Training Program; Visit Provider Student in an Organized Health Care Education/Training Program
DX: Z79.01 Long term (current) use of anticoagulants (principal); E11.9 Type 2 diabetes mellitus without complications; R23.8 Other skin changes; I10 Essential (primary) hypertension; R79.1 Abnormal coagulation profile
CPT/HCPCS: 36415; 80053; 83036; 85027; 85610

== ENCOUNTER → 2021-04-20 15:11 | Outpatient (CLI) | payer MEDICARE, OTHER, SELFPAY ==
[2021-04-20 16:07] LABS: Hematocrit 38.7 % (41-53); Hemoglobin 13.1 g/dL (13.5-17.5); Mean Corpuscular HGB Conc 33.7 % (30-36); Mean Corpuscular Hemoglobin 28.1 PG (26-34); Mean Corpuscular Volume 83.4 fL (80-100); Platelet Count 131 X10^3/uL (150-400); Red Blood Cell Count 4.65 X10^6/uL (4.5-5.9); Red Cell Distribution Width 17.7 % (11.6-14.8); White Blood Cell Count 5.1 X10^3/uL (4.5-11.0)
[2021-04-20 16:47] LABS: Prostate Specific Antigen 0.096 ng/mL (0.10-4.00)
== END ==
PROVIDERS: PCP Student in an Organized Health Care Education/Training Program; Referring Provider Transplant Surgery; Visit Provider Transplant Surgery
DX: C61 Malignant neoplasm of prostate (principal)
CPT/HCPCS: 36415; 84153; 85027

== ENCOUNTER → 2021-05-06 10:59 | Outpatient (CLI) | payer MEDICARE, OTHER, SELFPAY ==
[2021-05-06 12:40] LABS: INR 2.7 (0.9-1.3); Prothrombin Time 31.3 SECONDS (10.1-12.7)
== END ==
PROVIDERS: PCP Student in an Organized Health Care Education/Training Program; Referring Provider Student in an Organized Health Care Education/Training Program; Visit Provider Student in an Organized Health Care Education/Training Program
DX: Z79.01 Long term (current) use of anticoagulants (principal)
CPT/HCPCS: 36415; 85610

== ENCOUNTER → 2021-05-31 10:37 | Outpatient (CLI) | payer MEDICARE, OTHER, SELFPAY ==
--- NOTE | 2021-05-31 10:43 | DI.RAD.S_ITS ---
PROCEDURE: [place] HIP INJECTION MR/CT RT INDICATIONS: Unilateral primary osteoarthritis, right hip TECHNIQUE: The indications, alternatives, benefits, risks, and complications of the procedure were explained to the patient. Written informed consent was obtained and placed in the chart. The hip was examined fluoroscopically with the legs fixed in slight internal rotation, and a site for needle placement chosen for entry into the hip joint from an anterior approach. Care was taken to locate the common femoral artery and vein beforehand. The skin was prepped and draped in a sterile fashion, and 1% Lidocaine infiltrated from skin down to joint capsule. A spinal needle was inserted into the joint, and a small amount of iodinated contrast media injected to confirm intra-articular placement of the needle tip. This was followed by approximately 10 mL dilute solution of a gadolinium containing MR contrast agent. The needle was removed and a dressing was applied. The patient was given postprocedural instructions and sent to the MR suite for imaging. COMPARISON: [facility], MR, MR HIP RIGHT WITHOUT CONTRAST, 12/17/2020, 16:33. FINDINGS: A single fluoroscopic spot image demonstrates intra-articular location of injected iodinated contrast. 3 cc ropivacaine and 1 cc kenalog. Pain prior to the injection 4 of 10. Pain after the injection 0 of 10. IMPRESSION: Successful fluoroscopically guided administration of steroid solution into the right hip joint. Dictated by: Enmanuel Byrne M.D. on 05/31/2021 at 13:50 Approved by: Enmanuel Byrne M.D. on 05/31/2021 at 13:52
== END ==
PROVIDERS: PCP Student in an Organized Health Care Education/Training Program; Referring Provider Orthopaedic Surgery; Visit Provider Orthopaedic Surgery
DX: M16.11 Unilateral primary osteoarthritis, right hip (principal)
CPT/HCPCS: 20610; 27093; 77002

== ENCOUNTER 2021-06-10 19:54 | Emergency (ER) | payer MEDICARE, OTHER, SELFPAY ==
[2021-06-10 19:55] VITALS: BP 137/98; PULSE 91; RESP 24; TEMP 36.8; O2SAT 99; BMI 27.9
[2021-06-10 20:01] VITALS: BP 144/109; PULSE 99; RESP 18; O2SAT 99
--- NOTE | 2021-06-10 20:02 | DI.RAD.S_ITS ---
PROCEDURE: XR CHEST 1V INDICATIONS: chest pain TECHNIQUE: One view of the chest was acquired. COMPARISON: [facility], CR, XR CHEST 1V, 06/23/2019, 12:52. FINDINGS: Surgical changes and devices: Sternal wires and valve replacement are noted. Lungs and pleura: Lungs are clear. No pleural effusions or pneumothorax. Mediastinum: Mediastinal contours appear normal. Heart size is enlarged. Bones and chest wall: No suspicious bony lesions. Overlying soft tissues appear unremarkable. IMPRESSION: No acute pulmonary process. Dictated by: Wilma Murphy M.D. on 06/10/2021 at 20:50 Approved by: Wilma Murphy M.D. on 06/10/2021 at 20:50
--- NOTE | 2021-06-10 20:13 | ED_ITS ---
HPI - Chest Pain General Chief Complaint: Chest Pain Stated Complaint: chest pains Time Seen by Provider: 06/10/21 19:59 Source: patient Mode of arrival: Ambulatory Limitations: no limitations History of Present Illness HPI narrative: 71-year-old male nonsmoker with history of hypertension, hyperlipidemia, AFib on warfarin, and coronary artery disease with prior stenting is followed by cardiology and telling him presents with his in the chief complaint of a sudden onset left-sided chest pressure and heaviness that started about 90 minutes ago and radiated down his left arm. He denies any obvious provocation and states that it seems to have completely gone away after taking 1 of his own nitro. He had associated symptoms including nausea, diaphoresis and shortness of breath. He does have some lingering shortness of breath. His last stress test was about 6 months ago if not longer and last heart catheterization was in 2019. He denies any recent travel or injury. He states that he works out [employer] and in fact had exerted himself heavily prior to this episode and denies any exertional component. Related Data Home Medications Medication Instructions Recorded Confirmed Lupron Injection 1 dose IM [id number] 05/17/19 04/27/21 atorvastatin 40 mg tablet 40 mg PO BEDTIME 05/17/19 04/27/21 abiraterone 250 mg tablet (Zytiga) 1,000 mg PO DAILY 06/26/19 04/27/21 prednisone 5 mg tablet 5 mg PO BID 12/05/19 04/27/21 losartan 25 mg tablet 25 mg PO DAILY 05/01/20 04/27/21 metoprolol tartrate 100 mg tablet 50 mg PO BID tab 01/13/21 04/27/21 warfarin 5 mg tablet 5 mg PO DAILY tab 04/01/21 04/27/21 Previous Rx's Medication Instructions Recorded CPAP #1 ea 10/14/20 tamsulosin 0.4 mg capsule See Rx Instructions .ROUTE 02/08/21 .COMPLEX #180 cap metformin 500 mg tablet,extended 500 mg PO DAILY #90 tab 04/19/21 release 24 hr quetiapine 25 mg tablet 25 mg PO BID #180 tab 04/19/21 Allergies Allergy/AdvReac Type Severity Reaction Status Date / Time venom-honey bee Allergy Unknown Verified 06/10/21 20:03 [BEE VENOM (HONEY BEE)] lisinopril [LISINOPRIL] AdvReac Mild COUGH Verified 06/10/21 20:03 Review of Systems Review of Systems Narrative: GENERAL: See HP HEENT: Denies sinus pain, ear pain, sore throat, difficulty swallowing, dizziness. RESPIRATORY: See HPI CARDIOVASCULAR: See HPI GASTROINTESTINAL: Denies nausea, vomiting, abdominal pain, diarrhea, constipation, melena. : Denies dysuria, frequency, incontinence, hematuria, urinary retention. MUSCULOSKELETAL: denies weakness, joint pain, or bony pain SKIN: Denies rash, skin lesions, or other NEUROLOGIC: Denies weakness, headache, numbness, change in speech, confusion, seizures, incoordination. PSYCHIATRIC: No concerning psychosocial issues. 12 point review of systems is negative except for those stated above Patient History Medical History Bilateral knee pain BPH (benign prostatic hyperplasia) Chicken pox Colon polyps (Unknown) Erectile dysfunction Ganglion cyst History of heart attack (~2018) Kidney stones (~2013) Prostate cancer Rubella Tinnitus of both ears (~2013) Surgical History Anesthesia History of coronary artery stent placement (~2018) Hx of mitral valve repair (04/2008) Hx of right knee surgery (12/2009) Family History Father Diabetes mellitus History of heart disease Hyperlipidemia Hypertension Mother Cancer Diabetes mellitus History of heart disease Hyperlipidemia Hypertension Grandfather Diabetes mellitus Grandmother No problems noted. Grandfather No problems noted. Social History Smoking Status: Never smoker alcohol intake: never substance use type: does not use Smoking Status: Never smoker alcohol intake frequency: holidays/special occasions only Substance Use Type: does not use Exam Narrative Exam Narrative: GENERAL: [71 year old patient appears stated age. Well-developed patient, in mild distress. HEAD: Atraumatic. Normocephalic. EYES: Pupils equal round and reactive. Extraocular motions intact. No scleral icterus. No injection or drainage. ENT: Nose without bleeding, purulent drainage. Throat without erythema, tonsillar hypertrophy or exudate. Airway patent. NECK: Trachea midline. Non tender CARDIOVASCULAR: Regular rate and rhythm without murmurs, gallops, or rubs. RESPIRATORY: Clear to auscultation. Breath sounds equal bilaterally. No wheezes, rales, or rhonchi. GASTROINTESTINAL: Abdomen soft, non-tender, nondistended. EXTREMITIES: No edema or joint tenderness. BACK: Nontender without deformity or crepitance. No flank tenderness. NEURO: AOx3. SKIN: No rash or erythema of visible areas Initial Vital Signs Initial Vital Signs: Vital Signs Temperature 98.3 F 06/10/21 19:55 Pulse Rate 91 H 06/10/21 19:55 Respiratory Rate 24 06/10/21 19:55 Blood Pressure 137/98 H 06/10/21 19:55 Pulse Oximetry 99 06/10/21 19:55 Course Orders Ordered: ED Orders 06/10/21 20:02 XR chest 1V Stat 06/10/21 20:15 Complete Blood Count AUTO DIFF Stat Comprehensive Metabolic Panel Stat Lipase Stat Magnesium Stat Prothrombin Time INR Stat Troponin & CK Cardiac Panel Stat 06/10/21 20:18 EKG-12 Lead Stat 06/10/21 20:53 EKG-12 Lead Routine 06/10/21 23:20 Troponin & CK Cardiac Panel Stat Consultations Consultation #1: Discussed with on-call Cardiology from [facility], given current asymptomatic status, nonocclusive EKGs and initial unremarkable troponin they recommend a repeat troponin at the 3 hour norma, this remains negative and patient remains asymptomatic he is appropriate for discharge and close follow-up Consultation #2: Quickly discussed again with on-call Cardiology given slight bump in troponin to 0.019, patient remained asymptomatic, appropriate for discharge, he will relay a message to the schedulers to reach out for a prompt follow up visit Vital Signs Vital signs: Vital Signs - 8 hr 06/10/21 19:55 06/10/21 20:01 06/10/21 20:30 Temperature 98.3 F Pulse Rate 91 H 99 H 78 Respiratory Rate 24 18 17 Blood Pressure 137/98 H 144/109 H Pulse Oximetry 99 99 97 06/10/21 21:00 06/10/21 21:30 06/10/21 22:00 Temperature Pulse Rate 74 86 99 H Respiratory Rate 18 20 18 Blood Pressure 128/78 Pulse Oximetry 97 98 99 06/11/21 00:17 Temperature Pulse Rate 89 Respiratory Rate 25 H Blood Pressure 134/84 Pulse Oximetry 99 MDM - Chest Pain Lab Data Result diagrams: 06/10/21 20:15 06/10/21 20:15 Labs: Lab Results 06/10/21 06/10/21 06/10/21 Range/Units 20:15 20:15 20:15 WBC 7.4 (4.5-11.0) X10^3/uL RBC 4.47 L (4.5-5.9) X10^6/uL Hgb 12.9 L (13.5-17.5) g/dL Hct 38.3 L (41-53) % MCV 85.6 (80-100) fL MCH 28.9 (26-34) PG MCHC 33.8 (30-36) % RDW 16.1 H (11.6-14.8) % Plt Count 143 L (150-400) X10^3/uL Neut % (Auto) 72.6 (50-75) % Lymph % (Auto) 19.1 L (25-40) % Preble % (Auto) 5.8 (3-14) % Eos % (Auto) 1.8 L (2-4) % Baso % (Auto) 0.7 (0-2) % Neut # (Auto) 5400 (0450-0539) /uL Lymph # (Auto) 1400 (7122-4668) /uL Preble # (Auto) 400 (0-900) /uL Eos # (Auto) 100 (0-450) /uL Baso # (Auto) 100 (0-100) /uL PT 22.5 H (10.1-12.7) SECONDS INR 2.0 H (0.9-1.3) Sodium 138 (137-145) mmol/L Potassium 4.1 (3.4-5.1) mmol/L Chloride 106 (98-107) mmol/L Carbon Dioxide 24 (22-32) mmol/L BUN 18 (9-20) mg/dL Creatinine 0.78 (0.66-1.25) mg/dL Estimated GFR > 60.0 (>60) mL/min BUN/Creatinine Ratio 23.1 H (6-22) Glucose 158 H (80-110) mg/dL Calcium 9.1 (8.4-10.2) mg/dL Magnesium 1.8 (1.6-2.3) mg/dL Total Bilirubin 0.7 (0.2-1.3) mg/dL AST 21 (17-59) IU/L ALT 22 (<50) IU/L Alkaline Phosphatase 85 (38-126) U/L Total Creatine Kinase 41 L (55-170) U/L CK-MB (CK-2) TNP CK-MB (CK-2) Rel Index TNP Troponin I 0.012 (0.01-0.034) ng/mL Total Protein 6.4 (6.3-8.2) g/dL Albumin 4.0 (3.5-5.0) g/dL Globulin 2.4 (1.7-4.1) g/dL Albumin/Globulin Ratio 1.7 (1.0-2.8) Lipase 124 (23-300) U/L 06/10/21 Range/Units 23:20 WBC (4.5-11.0) X10^3/uL RBC (4.5-5.9) X10^6/uL Hgb (13.5-17.5) g/dL Hct (41-53) % MCV (80-100) fL MCH (26-34) PG MCHC (30-36) % RDW (11.6-14.8) % Plt Count (150-400) X10^3/uL Neut % (Auto) (50-75) % Lymph % (Auto) (25-40) % Preble % (Auto) (3-14) % Eos % (Auto) (2-4) % Baso % (Auto) (0-2) % Neut # (Auto) (5921-4492) /uL Lymph # (Auto) (5097-5960) /uL Preble # (Auto) (0-900) /uL Eos # (Auto) (0-450) /uL Baso # (Auto) (0-100) /uL PT (10.1-12.7) SECONDS INR (0.9-1.3) Sodium (137-145) mmol/L Potassium (3.4-5.1) mmol/L Chloride (98-107) mmol/L Carbon Dioxide (22-32) mmol/L BUN (9-20) mg/dL Creatinine (0.66-1.25) mg/dL Estimated GFR (>60) mL/min BUN/Creatinine Ratio (6-22) Glucose (80-110) mg/dL Calcium (8.4-10.2) mg/dL Magnesium (1.6-2.3) mg/dL Total Bilirubin (0.2-1.3) mg/dL AST (17-59) IU/L ALT (<50) IU/L Alkaline Phosphatase (38-126) U/L Total Creatine Kinase 53 L (55-170) U/L CK-MB (CK-2) TNP CK-MB (CK-2) Rel Index TNP Troponin I 0.019 (0.01-0.034) ng/mL Total Protein (6.3-8.2) g/dL Albumin (3.5-5.0) g/dL Globulin (1.7-4.1) g/dL Albumin/Globulin Ratio (1.0-2.8) Lipase (23-300) U/L ECG Data Interpretation: EKG is rate controlled atrial fibrillation rate [ 75] and free of any signs of ischemia or ectopy. No ST segmental elevation or depression. No T wave inversions MDM Narrative Medical decision making narrative: Patient has a complete resolution of chest pressure after taking nitro. He did have radiation of the discomfort and nausea as well as resolution with nitro, however multiple EKGs are nonischemic and 2 troponins by 3 hours are unremarkable. Patient was able to tolerate vigorous exercise without any exertional component. Patient remained pain/symptom free for the duration of his visit. Extensive return precautions given and questions answered to his apparent satisfaction Discharge Plan Departure Patient Disposition: Home Clinical Impression: Chest pain at rest Instructions: DI for Chest Pain Activity Restrictions/Additional Instructions: *You have been diagnosed with [chest pain, with resolution from nitro. Your EKGs are reassuring and troponin x2 is in the negative. As we discussed, your ground support equipment fitter's recommend discharge with very close follow-up, they sent a message to their schedulers to get you in the soon as possible *What to do: *Please continue to take your regular medications as directed. [ ] New medication prescriptions sent to your pharmacy: [ ] [ ] New medication written as a paper prescription [x ] No new medications given *Please follow up with your primary ground support equipment fitter as soon as possible, call tomorrow morning for an appointment. Let them know you were seen in the Emergency Department and that we ask that you be seen in follow up. *Return to Emergency Department if you should have any new, worsening or concerning symptoms, such as [recurrence of chest pain, particularly if it does not improve with nitro, unexplained sweating, or other bothersome symptoms Prescriptions: No Action (DME) CPAP See Rx Instructions .Route .MEDSUPPLY Qty: 1 0RF Rx Instructions: As directed metoprolol tartrate 100 mg tablet 50 mg PO BID 0RF Rx Instructions: take 50mg in am and 50mg in pm tamsulosin 0.4 mg capsule See Rx Instructions .ROUTE .COMPLEX Qty: 180 3RF Dose Instruction: TAKE 2 CAPSULES DAILY (DOSE CHANGED) Rx Instructions: TAKE 2 CAPSULES DAILY (DOSE CHANGED) quetiapine 25 mg tablet 25 mg PO BID Qty: 180 1RF metformin 500 mg tablet extended release 24 hr 500 mg PO DAILY Qty: 90 1RF prednisone 5 mg tablet 5 mg PO BID 0RF abiraterone [Zytiga] 250 mg tablet 1,000 mg PO DAILY 0RF losartan 25 mg tablet 25 mg PO DAILY 0RF warfarin 5 mg tablet 5 mg PO DAILY 0RF Rx Instructions: Take 2.5mg Monday and Monday and 5mg all other days, or as directed. atorvastatin 40 mg tablet 40 mg PO BEDTIME 0RF Lupron Injection 1 dose IM [id number] 0RF Referrals: Luke Etienne MD [Primary Care Provider] -
[2021-06-10 20:30] VITALS: PULSE 78; RESP 17; O2SAT 97
[2021-06-10 20:33] LABS: Add Manual Diff / Slide Review NO; Basophils Absolute Auto 100 /uL (0-100); Basophils Percent Auto 0.7 % (0-2); Eosinophils Absolute Auto 100 /uL (0-450); Eosinophils Percent Auto 1.8 % (2-4); Hematocrit 38.3 % (41-53); Hemoglobin 12.9 g/dL (13.5-17.5); Lymphocytes Absolute Auto 1400 /uL (1100-4500); Lymphocytes Percent Auto 19.1 % (25-40); Mean Corpuscular HGB Conc 33.8 % (30-36); Mean Corpuscular Hemoglobin 28.9 PG (26-34); Mean Corpuscular Volume 85.6 fL (80-100); Monocytes Absolute Auto 400 /uL (0-900); Monocytes Percent Auto 5.8 % (3-14); Neutrophils Absolute Auto 5400 /uL (1500-7000); Neutrophils Percent Auto 72.6 % (50-75); Platelet Count 143 X10^3/uL (150-400); Red Blood Cell Count 4.47 X10^6/uL (4.5-5.9); Red Cell Distribution Width 16.1 % (11.6-14.8); White Blood Cell Count 7.4 X10^3/uL (4.5-11.0)
[2021-06-10 20:41] LABS: Prothrombin Time 22.5 SECONDS (10.1-12.7)
[2021-06-10 20:47] LABS: Alanine Aminotransferase 22 IU/L (<50); Albumin Globulin Ratio 1.7 (1.0-2.8); Alkaline Phosphatase 85 U/L (38-126); Aspartate Aminotransferase 21 IU/L (17-59); BUN Creatinine Ratio 23.1 (6-22); Bilirubin Total 0.7 mg/dL (0.2-1.3); Blood Urea Nitrogen 18 mg/dL (9-20); Calcium 9.1 mg/dL (8.4-10.2); Carbon Dioxide 24 mmol/L (22-32); Chloride 106 mmol/L (98-107); Creatine Kinase 41 U/L (55-170); Estimated Glomerular Filt Rate > 60.0 mL/min (>60); Globulin 2.4 g/dL (1.7-4.1); Glucose 158 mg/dL (80-110); HEMOLYSIS < 15 (0-50); Lipase 124 U/L (23-300); Magnesium 1.8 mg/dL (1.6-2.3); Potassium 4.1 mmol/L (3.4-5.1); Sodium 138 mmol/L (137-145); Total Protein 6.4 g/dL (6.3-8.2)
[2021-06-10 20:59] LABS: Troponin I 0.012 ng/mL (0.01-0.034)
[2021-06-10 21:00] VITALS: PULSE 74; RESP 18; O2SAT 97
[2021-06-10 21:30] VITALS: PULSE 86; RESP 20; O2SAT 98
[2021-06-10 22:00] VITALS: BP 128/78; PULSE 99; RESP 18; O2SAT 99
[2021-06-10 23:40] LABS: Creatine Kinase 53 U/L (55-170)
[2021-06-10 23:52] LABS: Troponin I 0.019 ng/mL (0.01-0.034)
[2021-06-11 00:17] VITALS: BP 134/84; PULSE 89; RESP 25; O2SAT 99
== END 2021-06-11 00:20 | disposition home or self-care (01) ==
PROVIDERS: Emergency Provider Emergency Medicine; PCP Student in an Organized Health Care Education/Training Program
DX: R07.9 Chest pain, unspecified (principal)
CPT/HCPCS: 36415; 71045; 80053; 82550; 83690; 83735; 84484; 85025; 85610; 93005; 99283; 99284

== ENCOUNTER → 2021-07-20 14:27 | Outpatient (CLI) | payer MEDICARE, OTHER, SELFPAY ==
[2021-07-20 15:46] LABS: Hemoglobin A1C% w Est Avg Glu 6.6 % (4.0-6.0)
== END ==
PROVIDERS: PCP Student in an Organized Health Care Education/Training Program; Referring Provider Student in an Organized Health Care Education/Training Program; Visit Provider Student in an Organized Health Care Education/Training Program
DX: E11.9 Type 2 diabetes mellitus without complications (principal)
CPT/HCPCS: 36415; 83036

== ENCOUNTER → 2021-08-04 11:04 | Outpatient (CLI) | payer MEDICARE, OTHER, SELFPAY ==
[2021-08-04 12:16] LABS: Prostate Specific Antigen 0.067 ng/mL (0.10-4.00)
== END ==
PROVIDERS: PCP Student in an Organized Health Care Education/Training Program; Referring Provider Transplant Surgery; Visit Provider Transplant Surgery
DX: C61 Malignant neoplasm of prostate (principal)
CPT/HCPCS: 36415; 84153

== ENCOUNTER → 2021-11-08 12:54 | Outpatient (CLI) | payer MEDICARE, OTHER, SELFPAY | PROVIDERS: PCP Student in an Organized Health Care Education/Training Program; Referring Provider Transplant Surgery; Visit Provider Transplant Surgery | DX: C61 Malignant neoplasm of prostate (principal) | CPT/HCPCS: 36415; 84153 ==

== ENCOUNTER → 2022-01-04 15:14 | Outpatient (CLI) | payer MEDICARE, OTHER, SELFPAY ==
[2022-01-04 17:08] LABS: BUN Creatinine Ratio 23.1 (6-22); Blood Urea Nitrogen 21 mg/dL (9-20); Carbon Dioxide 29 mmol/L (22-32); Chloride 103 mmol/L (98-107); Cholesterol 92 mg/dL (140-199); Estimated Glomerular Filt Rate > 60 mL/min (>60); Glucose 139 mg/dL (80-110); HDL Cholesterol 31 mg/dL (40-60); HEMOLYSIS < 15 (0-50); LDL Cholesterol Calculated 17 mg/dL (<100); Potassium 4.7 mmol/L (3.4-5.1); Sodium 140 mmol/L (137-145); Triglycerides 220 mg/dL (35-150)
[2022-01-04 17:54] LABS: Creatinine Urine Random 130.3 mg/dL
[2022-01-04 17:59] LABS: Microalbumi Creatinin Ratio Ur 13.8 ug/mg CR (<30); Microalbumin Urine Random 1.8 mg/dL (0-1.6)
== END ==
PROVIDERS: PCP Student in an Organized Health Care Education/Training Program; Referring Provider Student in an Organized Health Care Education/Training Program; Visit Provider Student in an Organized Health Care Education/Training Program
DX: E11.9 Type 2 diabetes mellitus without complications (principal); E78.00 Pure hypercholesterolemia, unspecified; I10 Essential (primary) hypertension
CPT/HCPCS: 36415; 80048; 80061; 82043; 82570; 83036

== ENCOUNTER 2022-01-07 14:45 | Emergency (ER) | payer MEDICARE, OTHER, SELFPAY ==
[2022-01-07 14:48] VITALS: PULSE 55; RESP 12; TEMP 36.6; O2SAT 98; BMI 26.9
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
[2022-01-07] MEDS: BACITRACIN OINT 0.9 GM PCKT 1 APPLIC TOP (16:40)
== END 2022-01-07 16:53 | disposition home or self-care (01) ==
PROVIDERS: Emergency Provider Physician Assistant; PCP Student in an Organized Health Care Education/Training Program
DX: S50.812A Abrasion of left forearm, initial encounter (principal); V19.9XXA Pedal cyclist (driver) (passenger) injured in unspecified traffic accident, initial encounter; Z79.01 Long term (current) use of anticoagulants
CPT/HCPCS: 99282

== ENCOUNTER → 2022-02-09 12:36 | Outpatient (CLI) | payer MEDICARE, OTHER, SELFPAY ==
[2022-02-09 15:36] LABS: Prostate Specific Antigen < 0.064 ng/mL (0.10-4.00)
== END ==
PROVIDERS: PCP Student in an Organized Health Care Education/Training Program; Referring Provider Transplant Surgery; Visit Provider Transplant Surgery
DX: C61 Malignant neoplasm of prostate (principal)
CPT/HCPCS: 36415; 84153

== ENCOUNTER → 2022-04-20 11:45 | Outpatient (CLI) | payer MEDICARE, OTHER, SELFPAY ==
[2022-04-20 12:24] LABS: COVID19 -Nasal RAPID Negative (Negative)
== END ==
PROVIDERS: PCP Student in an Organized Health Care Education/Training Program; Visit Provider Surgery
DX: Z20.822 Contact with and (suspected) exposure to COVID-19 (principal); Z01.812 Encounter for preprocedural laboratory examination
CPT/HCPCS: 87635; C9803

== ENCOUNTER 2022-04-21 11:02 | Day surgery (SDC) | payer MEDICARE, OTHER, SELFPAY ==
--- NOTE | 2022-04-21 | PATH_ITS ---
[facility] Accession Number: [id number] . 01 Material submitted: . PART A: colon - ASCENDING POLYPS PART B: colon - SIGMOID POLYP . 01 Diagnosis: A. Ascending Colon, Polyps, Biopsies: Tubular adenoma in three of multiple fragments. . B. Sigmoid Colon, Polyp, Biopsy: Tubulovillous adenoma. The excision appears complete. No evidence of malignancy or high-grade dysplasia. MRV 04/26/2022 1245 Local . 01 Electronically signed: . Nela Wen MD, Pathologist NPI- [id number] . 01 Gross description: . Part A: ASCENDING POLYPS: Received in formalin are multiple fragment(s) of vo, soft tissue measuring 1.7 x 1.0 x 0.1 cm in aggregate submitted entirely in 1 cassette(s) Part B: SIGMOID POLYP: Received in formalin is 1 fragment(s) of vo, soft tissue measuring 1.5 x 0.6 x 0.5 cm which is serially sectioned and submitted entirely in 2 cassette(s) /CPE 04/22/2022 0953 Local . 01 Pathologist provided ICD-10: D12.2, D12.5 . 01 CPT . 839055, 037129 Specimen Comment: A courtesy copy of this report has been sent to [phone] Performed at: 01 [facility] [address] [place] [address], [place], [place] [id number] MD Luis De La Vega MD Phone: [phone]
[2022-04-21 11:33] VITALS: BP 140/86; PULSE 72; RESP 16; TEMP 36.8; O2SAT 98; BMI 27.2
[2022-04-21 11:44] VITALS: BMI 27.2
[2022-04-21] MEDS: LACTATED RINGERS 1,000 ML 42 ML IV (11:46)
--- NOTE | 2022-04-21 12:43 | P.HP_ITS ---
History of Present Illness History of Present Illness Date Patient Seen: 04/21/22 Time Patient Seen: 12:43 Chief complaint: [facility] [place] Narrative: Delmar is a 72 year old man here for a colonoscopy. He had one over 10 years ago. He has no known family history of colon cancer. Patient History Medical History Bilateral knee pain BPH (benign prostatic hyperplasia) Chicken pox Colon polyps (Unknown) Erectile dysfunction Ganglion cyst History of heart attack (~2018) Kidney stones (~2013) Prostate cancer Rubella Tinnitus of both ears (~2013) Surgical History Anesthesia History of coronary artery stent placement (~2018) Hx of mitral valve repair (04/2008) Hx of right knee surgery (12/2009) Family & Social History Family History Father Diabetes mellitus History of heart disease Hyperlipidemia Hypertension Mother Cancer Diabetes mellitus History of heart disease Hyperlipidemia Hypertension Grandfather Diabetes mellitus Grandmother No problems noted. Grandfather No problems noted. Tobacco & Substance use: Smoking Status Never smoker alcohol intake never alcohol intake frequency holiday/special occasion Substance Use Type does not use Meds Home Medications and Allergies Home Medications Medication Instructions Recorded Confirmed Type atorvastatin 40 mg tablet 40 mg PO BEDTIME 05/17/19 04/21/22 History abiraterone 250 mg tablet (Zytiga) 1,000 mg PO DAILY 06/26/19 04/21/22 History prednisone 5 mg tablet 5 mg PO BID 12/05/19 04/21/22 History losartan 25 mg tablet 25 mg PO DAILY 05/01/20 04/21/22 History CPAP #1 ea 10/14/20 01/04/22 Rx metoprolol tartrate 100 mg tablet 50 mg PO BID 01/13/21 04/21/22 History warfarin 5 mg tablet See Rx Instructions PO .COMPLEX 08/31/21 04/21/22 Rx #90 tabs tamsulosin 0.4 mg capsule 0.8 mg PO BEDTIME #180 caps 01/04/22 04/21/22 Rx leuprolide (3 month) 22.5 mg (3 22.5 mg IM [id number] #1 ea 03/02/22 04/21/22 Rx month) intramuscular syringe kit (Lupron Depot) metformin 500 mg tablet,extended 500 mg PO DAILY #90 tabs 03/09/22 04/21/22 Rx release 24 hr quetiapine 25 mg tablet 25 mg PO BID #180 tabs 04/13/22 04/21/22 Rx Allergies Allergy/AdvReac Type Severity Reaction Status Date / Time venom-honey bee Allergy Unknown Verified 04/21/22 11:29 [BEE VENOM (HONEY BEE)] lisinopril [LISINOPRIL] AdvReac Mild COUGH Verified 04/21/22 11:29 Exam Vital Signs (past 8 hours): - 04/21/22 11:33 Temperature 98.2 F Pulse Rate 72 Respiratory Rate 16 Blood Pressure 140/86 Pulse Oximetry 98 Oxygen Delivery Method Room Air Oxygen Delivery Method Room Air Const General: No acute distress Assessment & Plan Assessment and plan (1) Colon cancer screening: Status: Acute Plan Reviewed risks and benefits of colonoscopy and he would like to proceed. Time Spent With Patient Critical Care time: I spent a total of [] minutes of critical care time on this patient's care today; this time is exclusive of procedural time.
--- NOTE | 2022-04-21 13:22 | PM.OP.COLON ---
Operative Date/Time/Diagnoses Date of procedure: 04/21/22 Time of procedure: 13:22 Pre-op diagnosis: Colon cancer screening Post-op diagnosis: same Procedure & Clinicians Study performed: Colonoscopy Same procedure as scheduled: Yes Surgeon: Earl Perkins Procedure Notes Procedure in detail: Surgeon: Earl Perkins MD Anesthesia: Dr. Nelson Procedure: The patient was brought to the endoscopy suite, placed in left lateral decubitus position. The patient was connected to monitoring devices. A time-out was performed. Sedation was administered. Once the patient was adequately sedated, a digital rectal exam was performed and was normal. The scope was then inserted and advanced to the cecum where the appendiceal orifice was identified and photographed. The scope was then slowly withdrawn over greater than 6 minutes. The mucosa was thoroughly inspected. There were 4 small polyps in the ascending colon all removed with a cold snare and sent. The largest of these was about 6 mm. There was a 1.5 cm pedunculated polyp on a stalk the sigmoid colon at roughly 28 cm. This was removed with hot snare. The scope was retroflexed in the rectum. Other abnormalities were noted. The scope was straightened and removed. The patient was awakened and brought to recovery. Scope withdrawal time: 20 minutes Sedation time: 29 minutes EBL: 5 mL Findings: For small polyps in the ascending colon and a 1.5 cm polyp sigmoid colon Post-procedure Recommendations: Will call with biopsy results Disposition: PACU
[2022-04-21 13:25] VITALS: BP 94/61; PULSE 80; RESP 15; TEMP 36.7; O2SAT 99
[2022-04-21 13:29] VITALS: BP 106/77; PULSE 86; RESP 16; O2SAT 99
[2022-04-21 13:34] VITALS: BP 110/70; PULSE 72; RESP 12; O2SAT 99
[2022-04-21 13:42] VITALS: BP 116/66; PULSE 65; RESP 21; O2SAT 98
== END 2022-04-21 13:45 | disposition home or self-care (01) ==
PROVIDERS: PCP Student in an Organized Health Care Education/Training Program; Referring Provider Surgery; Visit Provider Surgery
PROC: 0DJD8ZZ Inspection of Lower Intestinal Tract, Via Natural or Artificial Opening Endoscopic (ICD-10-PCS; CPT 45378; principal; 2022-04-21 12:15)
DX: Z12.11 Encounter for screening for malignant neoplasm of colon (principal); D12.2 Benign neoplasm of ascending colon; D12.5 Benign neoplasm of sigmoid colon
CPT/HCPCS: 45385; 85610; J2704; J3010

== ENCOUNTER → 2022-07-20 14:21 | Outpatient (CLI) | payer MEDICARE, OTHER, SELFPAY ==
[2022-07-20 15:38] LABS: Hemoglobin A1C% w Est Avg Glu 7.3 % (4.0-6.0)
[2022-07-20 15:41] LABS: Alanine Aminotransferase 19 IU/L (<50); Albumin 3.9 g/dL (3.5-5.0); Albumin Globulin Ratio 1.9 (1.0-2.8); Alkaline Phosphatase 105 U/L (38-126); Aspartate Aminotransferase 17 IU/L (17-59); Bilirubin Total 1.1 mg/dL (0.2-1.3); Blood Urea Nitrogen 18 mg/dL (9-20); Calcium 8.9 mg/dL (8.4-10.2); Carbon Dioxide 25 mmol/L (22-32); Chloride 102 mmol/L (98-107); Estimated Glomerular Filt Rate > 60 mL/min (>60); Globulin 2.1 g/dL (1.7-4.1); Glucose 255 mg/dL (80-110); HEMOLYSIS < 15 (0-50); Potassium 4.3 mmol/L (3.4-5.1); Sodium 136 mmol/L (137-145)
[2022-07-20 16:04] LABS: Prostate Specific Antigen < 0.064 ng/mL (0.10-4.00)
== END ==
PROVIDERS: PCP Student in an Organized Health Care Education/Training Program; Referring Provider Transplant Surgery; Visit Provider Transplant Surgery
DX: E11.9 Type 2 diabetes mellitus without complications (principal); C61 Malignant neoplasm of prostate; Z79.899 Other long term (current) drug therapy; Z85.46 Personal history of malignant neoplasm of prostate
CPT/HCPCS: 36415; 80053; 83036; 84153

== ENCOUNTER → 2022-10-17 11:49 | Outpatient (CLI) | payer MEDICARE, OTHER, SELFPAY ==
[2022-10-17 12:49] LABS: Hematocrit 36.9 % (41-53); Hemoglobin 12.8 g/dL (13.5-17.5); Mean Corpuscular HGB Conc 34.6 % (30-36); Mean Corpuscular Hemoglobin 29.5 PG (26-34); Mean Corpuscular Volume 85.1 fL (80-100); Platelet Count 181 X10^3/uL (150-400); Red Blood Cell Count 4.34 X10^6/uL (4.5-5.9); Red Cell Distribution Width 13.7 % (11.6-14.8); White Blood Cell Count 6.6 X10^3/uL (4.5-11.0)
[2022-10-17 13:04] LABS: INR 1.3 (0.9-1.3); Prothrombin Time 15.4 SECONDS (10.1-12.7)
[2022-10-17 13:19] LABS: Alanine Aminotransferase 17 IU/L (<50); Albumin Globulin Ratio 1.7 (1.0-2.8); Alkaline Phosphatase 115 U/L (38-126); Aspartate Aminotransferase 18 IU/L (17-59); BUN Creatinine Ratio 20.6 (6-22); Blood Urea Nitrogen 13 mg/dL (9-20); Calcium 8.4 mg/dL (8.4-10.2); Carbon Dioxide 35 mmol/L (22-32); Chloride 94 mmol/L (98-107); Estimated Glomerular Filt Rate > 60 mL/min (>60); Globulin 2.4 g/dL (1.7-4.1); Glucose 187 mg/dL (80-110); HEMOLYSIS < 15 (0-50); Potassium 2.8 mmol/L (3.4-5.1); Sodium 137 mmol/L (137-145); Total Protein 6.4 g/dL (6.3-8.2)
[2022-10-17 14:10] LABS: TSH w/ Reflex to FT4 3.22 uIU/mL (0.47-4.68)
[2022-10-18 07:43] LABS: x Labcorp Estim. Avg Glu (eAG) 143 mg/dL (.); x Labcorp Hemoglobin A1c 6.6 % (4.8-5.6)
== END ==
PROVIDERS: PCP Internal Medicine; Referring Provider Internal Medicine; Visit Provider Internal Medicine
DX: I48.20 Chronic atrial fibrillation, unspecified (principal); I10 Essential (primary) hypertension; E11.9 Type 2 diabetes mellitus without complications; Z79.01 Long term (current) use of anticoagulants
CPT/HCPCS: 36415; 80053; 83036; 84443; 85027; 85610

== ENCOUNTER → 2022-10-17 12:20 | Outpatient (CLI) | payer MEDICARE, OTHER, SELFPAY ==
--- NOTE | 2022-10-17 12:21 | DI.CT.S_ITS ---
PROCEDURE: CT HEAD/BRAIN WO CON INDICATIONS: intracranial hemorrhage TECHNIQUE: Noncontrast 4.5 mm thick angled axial sections acquired from the foramen magnum to the vertex, with coronal and sagittal reformats. For radiation dose reduction, the following was used: automated exposure control, adjustment of mA and/or kV according to patient size. COMPARISON: Outside Facility, RG, CT HEAD W/O CONTRAST, 10/11/2022, 9:50. [facility], CT, CT HEAD/BRAIN WO CON, 12/30/2017, 15:25. FINDINGS: Image quality: Excellent. CSF spaces: Basal cisterns are patent. Comparison is made to the outside study from 6 days ago. A focally convex right subdural hematoma is stable in maximum thickness. It has decreased in the periphery, and is becoming less dense, indicating typical evolution. Again noted is 3 mm of midline shift to the left. Subdural hematoma along the falx and along the tentorium is decreasing. Ventricles are normal in size and shape. Brain: No midline shift. Focal convex right temporal subdural hematoma, with no evidence of interval Re hemorrhage. It is dissipating slightly. The subdural blood was previously bright, and is now isointense consistent with evolution of blood products. It is thinner than it was previously. There is no evidence of interval Re hemorrhage. The subdural hematoma measures approximately 4 mm in maximum diameter and is very focal. Wheeler-white matter interface is normal. Skull and face: Calvarium and visualized facial bones are intact, without suspicious lesions. Sinuses: Visualized sinuses and mastoids are clear. IMPRESSION: 1. The maximum diameter of the focally convex right subdural hematoma is not significantly changed. However, overall, the subdural is dissipating, and becoming less dense. The subdural hematoma along the falx and tentorium is diminishing. There is stable minimal 3 mm contralateral shift. 2. No evidence of interval Re hemorrhage. Dictated by: Sony Carver M.D. on 10/17/2022 at 13:25 Approved by: oSny Carver M.D. on 10/17/2022 at 13:36
== END ==
PROVIDERS: PCP Internal Medicine; Referring Provider Internal Medicine; Visit Provider Internal Medicine
DX: S06.5XAA Traumatic subdural hemorrhage with loss of consciousness status unknown, initial encounter (principal); I48.20 Chronic atrial fibrillation, unspecified; I10 Essential (primary) hypertension; E11.9 Type 2 diabetes mellitus without complications; X58.XXXA Exposure to other specified factors, initial encounter; Z79.01 Long term (current) use of anticoagulants
CPT/HCPCS: 36415; 70450; 80053; 83036; 84443; 85027; 85610

== ENCOUNTER 2022-10-21 17:39 | Emergency (ER) | payer MEDICARE, OTHER, SELFPAY ==
[2022-10-21] VITALS (23 sets, daily range): BP systolic 155–198; BP diastolic 81–114; PULSE 77–107; RESP 11–28; TEMP 36.3; O2SAT 94–100; BMI 27.2
--- NOTE | 2022-10-21 17:41 | DI.CT.S_ITS ---
PROCEDURE: CT STROKE INDICATIONS: altered, severe CELESTIN, known recent bleed TECHNIQUE: Noncontrast 4.5 mm thick angled axial sections acquired from the foramen magnum to the vertex, with coronal reformats. For radiation dose reduction, the following was used: automated exposure control, adjustment of mA and/or kV according to patient size. COMPARISON: Outside Facility, RG, CT HEAD W/O CONTRAST, 10/08/2022, 0:16. Outside Facility, RG, CT HEAD W/O CONTRAST, 10/07/2022, 16:07. Outside Facility, RG, CT HEAD W/O CONTRAST, 10/07/2022, 11:14. [facility], CT, CT HEAD/BRAIN WO CON, 10/17/2022, 12:50. [facility], CT, CT HEAD/BRAIN WO CON, 12/30/2017, 15:25. Outside Facility, RG, CT HEAD W/O CONTRAST, 10/11/2022, 9:50. FINDINGS: Image quality: Excellent. CSF spaces: Basal cisterns are patent. Small subdural hematoma has decreased. There is trace subdural hematoma along the tentorium. The ventricles are symmetric in size and shape. Brain: There is a small focus of intraparenchymal bleed in the right temporal lobe. Compared to the last exam, it has decreased. No intracranial bleeds or masses. There is cerebral volume loss for age, with resultant ventricular and sulcal prominence. There are periventricular and deep white matter chronic small vessel ischemic changes. There is intracranial internal carotid artery atherosclerosis. Skull and face: Calvarium and visualized facial bones appear intact, without suspicious lesions. Sinuses: Visualized sinuses and mastoids are clear. IMPRESSION: There is intracranial bleed. 1. There is a small intraparenchymal hematoma in the right posterior temporal lobe, which has decreased compared to the last exam. 2. Trace subdural hematoma along the right tentorium, also decreased. 3. No new intracranial bleed. The result was discussed with Dr. Villar. This study fulfills neurological imaging criteria for inclusion or exclusion of acute stroke therapies based on available published neurological guidelines. Dictated by: Aaron Alexandra M.D. on 10/21/2022 at 18:07 Approved by: Aaron Alexandra M.D. on 10/21/2022 at 18:13
[2022-10-21 17:59] LABS: Add Manual Diff / Slide Review NO; Basophils Absolute Auto 100 /uL (0-100); Eosinophils Absolute Auto 100 /uL (0-450); Eosinophils Percent Auto 1.8 % (2-4); Hematocrit 38.3 % (41-53); Hemoglobin 13.1 g/dL (13.5-17.5); Lymphocytes Absolute Auto 1400 /uL (1100-4500); Lymphocytes Percent Auto 20.1 % (25-40); Mean Corpuscular HGB Conc 34.2 % (30-36); Mean Corpuscular Volume 84.9 fL (80-100); Monocytes Absolute Auto 500 /uL (0-900); Monocytes Percent Auto 6.5 % (3-14); Neutrophils Absolute Auto 5000 /uL (1500-7000); Neutrophils Percent Auto 70.6 % (50-75); Platelet Count 185 X10^3/uL (150-400); Red Blood Cell Count 4.51 X10^6/uL (4.5-5.9); White Blood Cell Count 7.1 X10^3/uL (4.5-11.0)
[2022-10-21 18:06] LABS: INR 1.2 (0.9-1.3); Prothrombin Time 14.2 SECONDS (10.1-12.7)
[2022-10-21 18:09] LABS: PTT Partial Thromboplastin Tim 33 SECONDS (26-36)
[2022-10-21 18:10] LABS: Alanine Aminotransferase 18 IU/L (<50); Albumin 4.1 g/dL (3.5-5.0); Albumin Globulin Ratio 1.8 (1.0-2.8); Alkaline Phosphatase 115 U/L (38-126); Aspartate Aminotransferase 19 IU/L (17-59); BUN Creatinine Ratio 18.2 (6-22); Bilirubin Total 0.9 mg/dL (0.2-1.3); Blood Urea Nitrogen 14 mg/dL (9-20); Carbon Dioxide 29 mmol/L (22-32); Chloride 98 mmol/L (98-107); Creatine Kinase 28 U/L (55-170); Estimated Glomerular Filt Rate > 60 mL/min (>60); Ethanol (ETOH) < 10 mg/dL; Globulin 2.3 g/dL (1.7-4.1); Glucose 209 mg/dL (80-110); HEMOLYSIS < 15 (0-50); Potassium 3.3 mmol/L (3.4-5.1); Sodium 137 mmol/L (137-145); Total Protein 6.4 g/dL (6.3-8.2)
[2022-10-21] MEDS: ONDANSETRON 4 MG/2 ML INJ IV (18:17)
[2022-10-21] MEDS: HYDROMORPHONE 0.5 MG INJ IV ×3 (18:18→19:05)
[2022-10-21 18:22] LABS: Troponin I < 0.012 ng/mL (0.01-0.034)
--- NOTE | 2022-10-21 18:40 | PC.NURSE ---
Patient reports being a type 2 diabetic with generally stable blood sugars.
--- NOTE | 2022-10-21 18:43 | ED_ITS ---
HPI - General Adult General Chief complaint: Headache Stated complaint: Known head bleed, Headache Time Seen by Provider: 10/21/22 17:40 Source: patient, family and EMS Mode of arrival: EMS History of Present Illness HPI narrative: 72-year-old gentleman with a history of hypertension, hyperlipidemia, chronic atrial fibrillation for which he had been on warfarin, diet-controlled diabetes who had a head bleed with small intraparenchymal and small subdural hemorrhage on October 06 after a paraceliac accident in [place]. He was hospitalized for 5 days at that time with serial CT scans and no surgical intervention. He has been seen by his primary care doctor in follow-up for that and is complaining of continued intermittent headaches for which he had been using Tylenol 3 is now down to simply 500 mg of Tylenol and blood pressures that have continued to increase. His losartan 50 mg had been increased to 100 mg, he was started then on hydralazine 25 mg 3 times a day as needed that was increased to 50 mg 3 times a day as needed over the last 48 hours. He states he was feeling fine this morning with no headaches at all and then while he was resting this afternoon began having the worst headache of his life with increased blood pressure appreciated. Had some nausea but no vomiting. No palpitations or diaphoresis. He notes that at the onset of his headache he had some mild numbness in his right fingertips that extended up onto the palm of his hand that has since resolved. Related Data Home Medications Medication Instructions Recorded Confirmed atorvastatin 40 mg tablet 40 mg PO BEDTIME 05/17/19 10/17/22 abiraterone 250 mg tablet (Zytiga) 1,000 mg PO DAILY 06/26/19 10/17/22 metoprolol tartrate 100 mg tablet 50 mg PO BID 01/13/21 10/17/22 acetaminophen 300 mg-codeine 60 mg 1 tab PO Q4H PRN pain 10/17/22 10/17/22 tablet digoxin 125 mcg (0.125 mg) tablet 125 mcg PO DAILY 10/17/22 10/17/22 furosemide 40 mg tablet 40 mg PO BID 10/17/22 10/17/22 hydromorphone 4 mg tablet 4 mg PO Q4H PRN pain 10/17/22 10/17/22 losartan 50 mg tablet 100 mg PO DAILY 10/17/22 10/17/22 potassium chloride 20 mEq 20 meq PO DAILY 10/17/22 10/17/22 tablet,extended release sennosides 8.6 mg tablet (senna) 8.6 mg PO DAILY 10/17/22 10/17/22 Previous Rx's Medication Instructions Recorded warfarin 5 mg tablet See Rx Instructions PO .COMPLEX 08/31/21 #90 tabs tamsulosin 0.4 mg capsule 0.8 mg PO BEDTIME #180 caps 01/04/22 leuprolide (3 month) 22.5 mg (3 22.5 mg IM [id number] #1 ea 03/02/22 month) intramuscular syringe kit (Lupron Depot) quetiapine 25 mg tablet 25 mg PO BEDTIME PRN insomnia #90 07/26/22 tabs metformin 500 mg tablet,extended 500 mg PO DAILY #90 tabs 08/22/22 release 24 hr hydralazine 25 mg tablet 25 mg PO TID #90 tabs 10/18/22 oxycodone-acetaminophen 5 mg-325 1 tab PO Q6H PRN pain #14 tabs 10/21/22 mg tablet Allergies Allergy/AdvReac Type Severity Reaction Status Date / Time venom-honey bee Allergy Unknown Verified 10/17/22 10:13 [BEE VENOM (HONEY BEE)] lisinopril [LISINOPRIL] AdvReac Mild COUGH Verified 10/17/22 10:13 Review of Systems Review of Systems Narrative: Pertinent positive and negative findings as per HPI Patient History Medical History Allergic rhinitis Bilateral knee pain BPH (benign prostatic hyperplasia) Chicken pox Chronic atrial fibrillation Colon polyps (Unknown) Dysfunction of both eustachian tubes (07/14/15) Erectile dysfunction Essential hypertension (02/12/15) Hemorrhage, intracranial, without coma, traumatic HFrEF (heart failure with reduced ejection fraction) History of heart attack (~2018) Kidney stones (~2013) Lumbar radiculopathy, chronic Obstructive sleep apnea syndrome (07/14/15) Ocular migraine (10/21/16) Prostate cancer Rubella Tinnitus of both ears (~2013) Surgical History Anesthesia History of coronary artery stent placement (~2018) Hx of mitral valve repair (04/2008) Hx of right knee surgery (12/2009) Family History Father Diabetes mellitus History of heart disease Hyperlipidemia Hypertension Mother Cancer Diabetes mellitus History of heart disease Hyperlipidemia Hypertension Grandfather Diabetes mellitus Grandmother No problems noted. Grandfather No problems noted. Social History Smoking Status: Former smoker alcohol intake: never substance use type: does not use Smoking Status: Former smoker alcohol intake frequency: holidays/special occasions only Substance Use Type: does not use Exam Initial Vital Signs Initial Vital Signs: Vital Signs Pulse Rate 102 H 10/21/22 17:46 Respiratory Rate 14 10/21/22 17:46 Pulse Oximetry 100 10/21/22 17:46 General: Healthy appearing, in mild distress secondary to headache.. Able to give a complete and coherent history. Well-nourished well-developed HEENT: Moist mucous membranes, normal sclera with reactive pupils, Neck: No JVD, supple Respiratory: Lungs are clear to auscultation, no wheezing no rales no rhonchi. Full and symmetrical air movement Cardiac: Regular rate and rhythm no murmurs no bruits Abdomen: Soft, nontender, good bowel tones, no flank pain Skin: Warm and dry, no rashes Neurologic: Grossly neurologically intact with no obvious asymmetries or abnormalities Extremities: No trauma, well perfused Psych: Cooperative, appropriate insight and affect Course Orders Ordered: ED Orders 10/21/22 17:41 CT Stroke Stat 10/21/22 17:52 Complete Blood Count AUTO DIFF Stat Comprehensive Metabolic Panel Stat Ethanol (ETOH) Stat PTT Partial Thromboplastin Bryant Stat Prothrombin Time INR Stat Troponin & CK Cardiac Panel Stat 10/21/22 18:02 EKG-12 Lead Stat 10/21/22 18:25 Urinalysis and Microscopic Stat Urine Drug Screen, Rapid Stat Hydromorphone HCl (Hydromorphone 0.5 Mg Inj) 0.5 mg IV Q15MIN PRN PRN Reason: Pain, Last Admin: 10/21/22 18:48 Dose: 0.5 mg Documented By: Admin: 10/21/22 18:18 Dose: 0.5 mg Documented By: SB Discontinued Medications Hydralazine HCl (Hydralazine 25 Mg Tablet) 50 mg PO NOW ONE Stop: 10/21/22 19:27 Last Admin: 10/21/22 19:47 Dose: 50 mg Documented By: OLAYINKA Hydromorphone HCl (Hydromorphone 0.5 Mg Inj) 0.5 mg IV NOW ONE Stop: 10/21/22 19:02 Last Admin: 10/21/22 19:05 Dose: 0.5 mg Documented By: OLAYINKA Ondansetron HCl (Ondansetron 4 Mg/2 Ml Inj) 4 mg IV NOW ONE Stop: 10/21/22 18:07 Last Admin: 10/21/22 18:17 Dose: 4 mg Documented By: CHANEL Vital Signs Vital signs: Vital Signs - 8 hr 10/21/22 18:00 10/21/22 17:46 10/21/22 17:47 Temperature 97.3 F L Pulse Rate 102 H 102 H 102 H Respiratory Rate 19 14 19 Blood Pressure 174/96 H Pulse Oximetry 100 100 100 Oxygen Delivery Method Room Air Room Air 10/21/22 17:47 10/21/22 18:00 10/21/22 18:01 Temperature Pulse Rate 102 H 97 H Respiratory Rate 18 22 Blood Pressure 174/96 H Pulse Oximetry 100 100 Oxygen Delivery Method Room Air 10/21/22 18:01 10/21/22 18:05 10/21/22 18:05 Temperature Pulse Rate 99 H Respiratory Rate 11 L Blood Pressure 164/84 H 171/82 H Pulse Oximetry 100 Oxygen Delivery Method 10/21/22 18:10 10/21/22 18:10 10/21/22 18:15 Temperature Pulse Rate 94 H 103 H Respiratory Rate 18 18 Blood Pressure 184/85 H Pulse Oximetry 100 Oxygen Delivery Method 10/21/22 18:15 10/21/22 18:20 10/21/22 18:20 Temperature Pulse Rate 107 H Respiratory Rate 28 H Blood Pressure 155/93 H 157/94 H Pulse Oximetry 100 Oxygen Delivery Method 10/21/22 18:30 10/21/22 18:30 10/21/22 18:45 Temperature Pulse Rate 95 H Respiratory Rate 17 Blood Pressure 179/97 H 172/105 H Pulse Oximetry 99 Oxygen Delivery Method Room Air 10/21/22 18:45 10/21/22 18:56 10/21/22 18:56 Temperature Pulse Rate 87 87 Respiratory Rate 24 17 Blood Pressure 196/112 H Pulse Oximetry 100 99 Oxygen Delivery Method 10/21/22 19:00 10/21/22 19:00 10/21/22 19:15 Temperature Pulse Rate 81 Respiratory Rate 19 Blood Pressure 180/114 H 184/107 H Pulse Oximetry 99 Oxygen Delivery Method 10/21/22 19:15 10/21/22 19:30 10/21/22 19:30 Temperature Pulse Rate 89 86 Respiratory Rate 17 20 Blood Pressure 165/81 H Pulse Oximetry 97 94 Oxygen Delivery Method Room Air Room Air 10/21/22 19:47 10/21/22 19:45 10/21/22 19:45 Temperature Pulse Rate 80 82 Respiratory Rate 13 Blood Pressure 182/110 H 182/110 H Pulse Oximetry 95 Oxygen Delivery Method Room Air 10/21/22 20:00 10/21/22 20:00 10/21/22 20:15 Temperature Pulse Rate 83 83 Respiratory Rate 14 13 Blood Pressure 187/93 H Pulse Oximetry 97 96 Oxygen Delivery Method 10/21/22 20:15 10/21/22 20:30 10/21/22 20:30 Temperature Pulse Rate 79 Respiratory Rate 13 Blood Pressure 163/89 H 168/92 H Pulse Oximetry 96 Oxygen Delivery Method Room Air 10/21/22 20:35 Temperature Pulse Rate 77 Respiratory Rate Blood Pressure 168/92 H Pulse Oximetry Oxygen Delivery Method Medical Decision Making Lab Data 10/21/22 17:52 10/21/22 17:52 Labs: Lab Results 10/21/22 10/21/22 10/21/22 Range/Units 17:52 17:52 17:52 WBC 7.1 (4.5-11.0) X10^3/uL RBC 4.51 (4.5-5.9) X10^6/uL Hgb 13.1 L (13.5-17.5) g/dL Hct 38.3 L (41-53) % MCV 84.9 (80-100) fL MCH 29.0 (26-34) PG MCHC 34.2 (30-36) % RDW 14.0 (11.6-14.8) % Plt Count 185 (150-400) X10^3/uL Neut % (Auto) 70.6 (50-75) % Lymph % (Auto) 20.1 L (25-40) % [place] % (Auto) 6.5 (3-14) % Eos % (Auto) 1.8 L (2-4) % Baso % (Auto) 1.0 (0-2) % Neut # (Auto) 5000 (3331-0597) /uL Lymph # (Auto) 1400 (2939-9364) /uL [place] # (Auto) 500 (0-900) /uL Eos # (Auto) 100 (0-450) /uL Baso # (Auto) 100 (0-100) /uL PT 14.2 H (10.1-12.7) SECONDS INR 1.2 (0.9-1.3) APTT 33 (26-36) SECONDS Sodium 137 (137-145) mmol/L Potassium 3.3 L (3.4-5.1) mmol/L Chloride 98 (98-107) mmol/L Carbon Dioxide 29 (22-32) mmol/L BUN 14 (9-20) mg/dL Creatinine 0.77 (0.66-1.25) mg/dL Estimated GFR > 60 (>60) mL/min BUN/Creatinine Ratio 18.2 (6-22) Glucose 209 H (80-110) mg/dL Calcium 9.0 (8.4-10.2) mg/dL Total Bilirubin 0.9 (0.2-1.3) mg/dL AST 19 (17-59) IU/L ALT 18 (<50) IU/L Alkaline Phosphatase 115 (38-126) U/L Total Creatine Kinase 28 L (55-170) U/L CK-MB (CK-2) TNP CK-MB (CK-2) Rel Index TNP Troponin I < 0.012 (0.01-0.034) ng/mL Total Protein 6.4 (6.3-8.2) g/dL Albumin 4.1 (3.5-5.0) g/dL Globulin 2.3 (1.7-4.1) g/dL Albumin/Globulin Ratio 1.8 (1.0-2.8) Urine Color Urine Appearance Urine pH (4.5-8.0) Ur Specific [place] (1.000-1.035) Urine Protein (Negative) Urine Glucose (UA) (Negative) g/dL Urine Ketones (NEGATIVE) Urine Occult Blood (Negative) Urine Nitrate (Negative) Urine Bilirubin (NEGATIVE) Urine Urobilinogen (0.2) E.U./dL Ur Leukocyte Esterase (NEGATIVE) Urine RBC (0-5/HPF) Urine WBC (0-5/HPF) Ur Squamous Epith Cells (0-5/HPF) Urine Bacteria (None) Ur Culture Indicated? U Opiates 300ng/mL cut (Negative) Ur Oxycodone Screen (Negative) Urine Methadone Screen (Negative) Ur Barbiturates Screen (Negative) U Tricyclic Antidepress (Negative) Ur Phencyclidine Scrn (Negative) Ur Amphetamines Screen (Negative) U Methamphetamines Scrn (Negative) Ur MDMA Scrn (Ecstasy) (Negative) U Benzodiazepines Scrn (Negative) Urine Cocaine Screen (Negative) U Marijuana (THC) Screen (Negative) Ethyl Alcohol < 10 ( - 10) mg/dL 10/21/22 10/21/22 Range/Units 18:25 18:25 WBC (4.5-11.0) X10^3/uL RBC (4.5-5.9) X10^6/uL Hgb (13.5-17.5) g/dL Hct (41-53) % MCV (80-100) fL MCH (26-34) PG MCHC (30-36) % RDW (11.6-14.8) % Plt Count (150-400) X10^3/uL Neut % (Auto) (50-75) % Lymph % (Auto) (25-40) % [place] % (Auto) (3-14) % Eos % (Auto) (2-4) % Baso % (Auto) (0-2) % Neut # (Auto) (9111-6633) /uL Lymph # (Auto) (2532-5705) /uL [place] # (Auto) (0-900) /uL Eos # (Auto) (0-450) /uL Baso # (Auto) (0-100) /uL PT (10.1-12.7) SECONDS INR (0.9-1.3) APTT (26-36) SECONDS Sodium (137-145) mmol/L Potassium (3.4-5.1) mmol/L Chloride (98-107) mmol/L Carbon Dioxide (22-32) mmol/L BUN (9-20) mg/dL Creatinine (0.66-1.25) mg/dL Estimated GFR (>60) mL/min BUN/Creatinine Ratio (6-22) Glucose (80-110) mg/dL Calcium (8.4-10.2) mg/dL Total Bilirubin (0.2-1.3) mg/dL AST (17-59) IU/L ALT (<50) IU/L Alkaline Phosphatase (38-126) U/L Total Creatine Kinase (55-170) U/L CK-MB (CK-2) CK-MB (CK-2) Rel Index Troponin I (0.01-0.034) ng/mL Total Protein (6.3-8.2) g/dL Albumin (3.5-5.0) g/dL Globulin (1.7-4.1) g/dL Albumin/Globulin Ratio (1.0-2.8) Urine Color Yellow Urine Appearance Clear Urine pH 6.5 (4.5-8.0) Ur Specific [place] 1.010 (1.000-1.035) Urine Protein Negative (Negative) Urine Glucose (UA) Trace H (Negative) g/dL Urine Ketones Negative (NEGATIVE) Urine Occult Blood Negative (Negative) Urine Nitrate Negative (Negative) Urine Bilirubin Negative (NEGATIVE) Urine Urobilinogen 1.0 (0.2) E.U./dL Ur Leukocyte Esterase Negative (NEGATIVE) Urine RBC None seen (0-5/HPF) Urine WBC None seen (0-5/HPF) Ur Squamous Epith Cells None seen (0-5/HPF) Urine Bacteria None seen (None) Ur Culture Indicated? Cult not indicated U Opiates 300ng/mL cut Positive H (Negative) Ur Oxycodone Screen Negative (Negative) Urine Methadone Screen Negative (Negative) Ur Barbiturates Screen Negative (Negative) U Tricyclic Antidepress Negative (Negative) Ur Phencyclidine Scrn Negative (Negative) Ur Amphetamines Screen Negative (Negative) U Methamphetamines Scrn Negative (Negative) Ur MDMA Scrn (Ecstasy) Negative (Negative) U Benzodiazepines Scrn Negative (Negative) Urine Cocaine Screen Negative (Negative) U Marijuana (THC) Screen Negative (Negative) Ethyl Alcohol ( - 10) mg/dL Point of Care Testing Glucose POC 167 Urine Dip Bedside Urine Glucose Negative Bedside Urine Bilirubin - Negative Bedside Urine Ketone - Negative Urine Specific [place] 1.015 Bedside Urine Occult Blood - Negative Bedside Urine pH 6.0 Bedside Urine Protein - Negative Bedside Urine Urobilinogen - Negative Bedside Urine Nitrite - Negative Bedside Urine Leukocytes - Negative Esterase Point of care testing: Point of Care Testing Glucose POC 167 Urine Dip Bedside Urine Glucose Negative Bedside Urine Bilirubin - Negative Bedside Urine Ketone - Negative Urine Specific [place] 1.015 Bedside Urine Occult Blood - Negative Bedside Urine pH 6.0 Bedside Urine Protein - Negative Bedside Urine Urobilinogen - Negative Bedside Urine Nitrite - Negative Bedside Urine Leukocytes - Negative Esterase MDM Narrative Medical decision making narrative: CC: Severe headache, this is an acute problem uncertain prognosis Complicating co-morbidities: Subdural intraparenchymal head bleed on October 06. Had been anticoagulated with warfarin at the time this has since been discontinued. Data collected from: patient, friends with whom he lives Medical records reviewed: Requested records from [place] hospitalization on October 06. Internal medicine notes from October 17 are reviewed Differential considered: Post intracranial hemorrhage headache, new hemorrhage or expanding hemorrhage, hypertensive crisis, Exam documented above, pertinent findings include: Fairly benign exam with no acute neurologic findings Lab Test results independently reviewed as above. Pertinent findings: CBC is unremarkable. No evidence of significant anemia or leukocytosis INR is 1.2 Chemistries are reassuring. Mild hypokalemia at 3.3. Troponin is unremarkable. Independently reviewed EKG Chronic atrial fibrillation at a rate of 89. Leftward axis. No acute ischemic changes Imaging studies independently reviewed: CT scan of the head shows a slightly reduced subdural and intraparenchymal hemorrhage compared to October 17. Discussed in real-time with Radiology Treatments: IV Dilaudid, IV Zofran, oral hydralazine and oral Percocet. Re-evaluations: 8:53 pm patient is re-evaluated. He states his headache pain is down to approximately 3. While sleeping the lowest blood pressure noted was 158/72. Once he is awake it goes back up into the 190s over 80s. I suspect that the pain in the blood pressure are both exacerbating each other. He currently did have his losartan recently increased to 100 mg and did have his hydralazine increased to 50 mg 3 times a day. Today he has had 2 oral doses of 50 mg of hydralazine. We will request that he suddenly alarm for approximately 1:00 a.m. to recheck blood pressure. If still elevated will ask him to take his 3rd dose of hydralazine for today. I do believe that discharge home is safe. We did review findings CT scan blood work. We will give him Percocet to use for headache control and he currently has stool softeners as well as son at home to do constipation. At this point I am seeing no evidence of acute coronary syndrome, no acute neurologic complaints to suggest hypertensive crisis or reason for additional imaging, transfer or hospital admission today. Questions are answered and he is safe for discharge home Discharge Plan Departure Patient Disposition: Home Clinical Impression: Acute subdural hematoma, Intraparenchymal hemorrhage of brain Headache Qualifiers: Headache type: other headache syndrome Qualified Code(s): G44.89 - Other headache syndrome Hypertension Qualifiers: Hypertension type: primary hypertension Qualified Code(s): I10 - Essential (primary) hypertension Instructions: DI for Headache, DI for Subdural Hematoma Activity Restrictions/Additional Instructions: Thank you for coming in today Head injuries with both subdural hematoma and intraparenchymal component can be incredibly frustrating. I suspect that the pain related to the headache is exacerbating your blood pressure and the blood pressure is exacerbating pain. I believe that the increased losartan to 100 mg any increased hydralazine to 50 mg 3 times a day is absolutely appropriate. At this time there is no evidence of worsening bleeding or any type of obstruction or increased pressure inside your brain or your skull. I have given you a dose of Percocet prior to discharge home as well as some to have at home. I will also give you a prescription to fill. You can use these up to every 6 hours for pain control. Each Percocet has a equivalent of 1 Tylenol in it. You can continue to use Tylenol as well. Regarding your blood pressure, I would request that you sudden alarm for approximately 1:00 a.m. this morning to check your blood pressure. If it is still elevated at that time I would ask you to take your 3rd dose of hydralazine for today. For the next number of days I suspect he are still going to need the 50 mg of hydralazine 3 times a day. Please do continue this. Make sure that you are using stool softeners on days that you take any narcotic. Narcotics to cause constipation. Please keep follow-up appointments and if you find that you are getting worse please feel free to return to the ER Prescriptions: New oxycodone-acetaminophen 5-325 mg tablet 1 tab PO Q6H PRN (Reason: pain) Qty: 14 0RF No Action metoprolol tartrate 100 mg tablet 50 mg PO BID Rx Instructions: take 50mg in am and 50mg in pm warfarin 5 mg tablet See Rx Instructions PO .COMPLEX Qty: 90 3RF Rx Instructions: PO; Take 5mg Monday, Monday and Monday and 2.5mg all other days, or as directed. quetiapine 25 mg tablet 25 mg PO BEDTIME PRN (Reason: insomnia) Qty: 90 0RF metformin 500 mg tablet extended release 24 hr 500 mg PO DAILY Qty: 90 1RF hydralazine 25 mg tablet 25 mg PO TID Qty: 90 1RF hydromorphone 4 mg tablet 4 mg PO Q4H PRN (Reason: pain) Patient Comments: take 1 tablet by mouth every 4 hours if needed for pain potassium chloride 20 mEq tablet extended release 20 meq PO DAILY acetaminophen-codeine 300-60 mg tablet 1 tab PO Q4H PRN (Reason: pain) Patient Comments: take 1 tablet by mouth every 4 hours if needed for pain sennosides [senna] 8.6 mg tablet 8.6 mg PO DAILY Patient Comments: take 1 tablet by mouth daily for constipation furosemide 40 mg tablet 40 mg PO BID digoxin 125 mcg (0.125 mg) tablet 125 mcg PO DAILY losartan 50 mg tablet 100 mg PO DAILY Patient Comments: take 1 tablet by mouth once daily abiraterone [Zytiga] 250 mg tablet 1,000 mg PO DAILY tamsulosin 0.4 mg capsule 0.8 mg PO BEDTIME Qty: 180 3RF Lupron Depot (3 month) 22.5 mg syringe kit 22.5 mg IM [id number] Qty: 1 2RF atorvastatin 40 mg tablet 40 mg PO BEDTIME Referrals: Darius Duarte MD [Primary Care Provider] - Stand Alone Forms: Patient Portal/API
[2022-10-21 18:54] LABS: Appearance Urine UA CLEAR; Bilirubin Urine UA NEGATIVE (NEGATIVE); Color Urine UA YELLOW; Glucose Urine UA TRACE g/dL (Negative); Ketones Urine UA NEGATIVE (NEGATIVE); Leukocyte Esterase Urine UA NEGATIVE (NEGATIVE); Nitrite Urine UA NEGATIVE (Negative); Occult Blood Urine UA NEGATIVE (Negative); Protein Urine UA NEGATIVE (Negative); pH Urine UA 6.5 (4.5-8.0)
[2022-10-21 19:08] LABS: Bacteria Urine None Seen; Culture Indicated Urine Cult Not Indicated; RBC Urine None Seen (0-5/HPF); Squamous Epithelial Cell Urine None Seen (0-5/HPF); WBC Urine None Seen (0-5/HPF)
[2022-10-21 19:09] LABS: UR Morphine/Opiate cutoff 300 Positive (Negative); Ur Creatinine Normal (Normal); Ur Specific Gravity Normal (Normal); Urine Amphetamines Negative (Negative); Urine Barbiturates Negative (Negative); Urine Benzodiazepines Negative (Negative); Urine Cocaine Negative (Negative); Urine MDMA Negative (Negative); Urine Methadone Negative (Negative); Urine Methamphetamines Negative (Negative); Urine Oxycodone Negative (Negative); Urine Phencyclidine Negative (Negative); Urine Tetrahydrocannabinol Negative (Negative); Urine Tricyclic Antidepressant Negative (Negative); Urine pH Normal (Normal)
[2022-10-21] MEDS: HYDRALAZINE 25 MG TABLET 50 MG PO (19:47)
[2022-10-21] MEDS: OXYCODONE/ACETAMINOPHEN 5/325 TABLET 1 TAB PO (21:04)
[2022-10-21] MEDS: OXYCODONE/APAP 5/325 PREPACK 1 BOTTLE MISC (21:04)
== END 2022-10-21 21:13 | disposition home or self-care (01) ==
PROVIDERS: Emergency Medicine; Emergency Provider Emergency Medicine; PCP Internal Medicine
DX: I61.9 Nontraumatic intracerebral hemorrhage, unspecified (principal); G44.89 Other headache syndrome; I10 Essential (primary) hypertension; E87.6 Hypokalemia; R07.9 Chest pain, unspecified
CPT/HCPCS: 36415; 70450; 80053; 80305; 80320; 81001; 81003; 82550; 82962; 84484; 85025; 85610; 85730; 93005; 93010; 96374; 96375; 96376; 99284; 99285; J1170; J2405

== ENCOUNTER → 2022-10-28 15:45 | Outpatient (CLI) | payer MEDICARE, OTHER, SELFPAY ==
--- NOTE | 2022-10-28 15:46 | DI.CT.S_ITS ---
PROCEDURE: CT CERVICAL SPINE WO CON INDICATIONS: neck pain, trauma TECHNIQUE: Noncontrast 3 mm thick sections acquired from the skull base to the T4 level. Sagittal and coronal reformats were then constructed. For radiation dose reduction, the following was used: automated exposure control, adjustment of mA and/or kV according to patient size. COMPARISON: None. FINDINGS: Image quality: Excellent. Bones: No fractures or dislocations. Visualized superior ribs are intact. There is chronic disc height loss at C4-C5, C5-C6, and C6-C7. There are associated bilateral uncovertebral joint osteophytes at C4-C5 and C5-C6 which results in bilateral foraminal narrowing, left greater than right. There is multi level bilateral facet arthropathy, most notable on the right at C2-C3 and on the left at C3-C4. Soft tissues: Prevertebral soft tissues are normal in thickness. No paravertebral hematomas. No apical pneumothoraces. IMPRESSION: 1. No acute cervical fracture or dislocation. 2. Cervical spondylosis as described above. Of note, there is multilevel bony foraminal narrowing. Dictated by: Sony Carver M.D. on 10/28/2022 at 16:56 Approved by: Sony Carver M.D. on 10/28/2022 at 17:02
== END ==
PROVIDERS: PCP Internal Medicine; Referring Provider Internal Medicine; Visit Provider Internal Medicine
DX: M47.812 Spondylosis without myelopathy or radiculopathy, cervical region (principal); M48.02 Spinal stenosis, cervical region; M54.2 Cervicalgia
CPT/HCPCS: 72125

== ENCOUNTER → 2022-11-22 13:33 | Outpatient (CLI) | payer MEDICARE, OTHER, SELFPAY ==
[2022-11-22 14:54] LABS: Prostate Specific Antigen < 0.064 ng/mL (0.10-4.00)
== END ==
PROVIDERS: PCP Internal Medicine; Referring Provider Transplant Surgery; Visit Provider Transplant Surgery
DX: C61 Malignant neoplasm of prostate (principal)
CPT/HCPCS: 36415; 84153

== ENCOUNTER → 2022-11-23 11:40 | Outpatient (CLI) | payer MEDICARE, OTHER, SELFPAY ==
--- NOTE | 2022-11-23 12:00 | DI.DEXA.S_ITS ---
Bone Density Report Name: HUNTER LOMAX Age: 72 Sex: Male Ethnicity: White Date of : 1950 Indication: screening for osteoporosis; Referring Provider: DEBBI KEENAN Study: Bone densitometry was performed. Exam Date: November 23, 2022 Accession number: [id number] Bone Density: Region BMD T-score Z-score Classification AP Spine(L1, L2, L3) 1.074 0.5 1.0 Normal Femoral Neck (Left) 0.757 -0.8 0.0 Normal Total Hip (Left) 0.967 0.2 0.3 Normal Total Forearm (Left) 0.638 1.1 0.4 Normal 1/3 Forearm (Left) 0.823 2.1 1.5 Normal UD Forearm (Left) 0.443 0.0 -0.4 Normal World Health Organization criteria for BMD impression classify patients as: Normal (T-score at or above -1.0), Osteopenia (T-score between -1.0 and -2.5), or Osteoporosis (T-score at or below -2.5). 10-year Fracture Risk: FRAX not reported because: All T-scores for Spine Total, Hip Total, Femoral Neck at or above -1.0 Impression: The patient has normal bone mass. Discussion: BONE DENSITY IS ABOVE THE MINIMUM DESIRABLE LEVEL AT ALL SKELETAL SITES TESTED. This patient?s bone mineral density is above the minimum desirable level (T-score -1.0 or better) at all sites measured. The patient should follow a healthful lifestyle (good nutrition with adequate calcium and vitamin D, and appropriate weight-bearing exercise). Follow-Up: Consider repeating this study in 5 years or sooner if there is some new clinical indication. Reported by: EDWARD DUNN M.D. on 11/23/2022 12:11:00 PM.A
== END ==
PROVIDERS: PCP Internal Medicine; Referring Provider Transplant Surgery; Visit Provider Transplant Surgery
DX: Z79.899 Other long term (current) drug therapy (principal); C61 Malignant neoplasm of prostate; E29.1 Testicular hypofunction; Z79.818 Long term (current) use of other agents affecting estrogen receptors and estrogen levels; Z13.820 Encounter for screening for osteoporosis
CPT/HCPCS: 77080; 77081

== ENCOUNTER 2023-05-31 11:46 | Emergency (ER) | payer MEDICARE, OTHER, SELFPAY ==
[2023-05-31 11:59] VITALS: BP 139/81; PULSE 60; RESP 14; TEMP 36.1; O2SAT 98; BMI 26.8
--- NOTE | 2023-05-31 12:37 | DI.RAD.S_ITS ---
PROCEDURE: XR CHEST 2V INDICATIONS: cough, SOB, hx poor cardiac function TECHNIQUE: 2 views of the chest were acquired. COMPARISON: [facility], CR, XR CHEST 1V, 06/10/2021, 20:03. FINDINGS: Surgical changes and devices: Median sternotomy. Lungs and pleura: Lungs are clear. No pleural effusions or pneumothorax. Mediastinum: Mediastinal contours are normal. Heart size is normal. Bones and chest wall: No suspicious bony abnormalities. Soft tissues appear unremarkable. IMPRESSION: No acute cardiopulmonary abnormality is seen. Dictated by: Cele Rod M.D. on 05/31/2023 at 12:58 Approved by: Cele Rod M.D. on 05/31/2023 at 12:58
--- NOTE | 2023-05-31 14:20 | ED.URI ---
HPI - URI/Sore Throat <Xi Youngblood PA-C - Last Filed: 05/31/23 14:26> General Chief Complaint: Upper Respiratory Symptoms Stated Complaint: cough,runny nose,sob,body aches,sneezing Time Seen by Provider: 05/31/23 12:30 Source: patient Mode of arrival: Ambulatory History of Present Illness HPI Narrative: Patient is a 73-year-old male with past medical history of heart failure, diabetes, AFib who presents with 5 days of cough, shortness of breath with exertion or when lying down. Also mild runny nose, body aches and sneezing. Took a home COVID test several days ago and it was negative. He denies any fever or chills. He has been drinking lots of water, tea with honey, taking Echinacea. He his primary concern is that he has many cardiac problems and a low ejection fraction and he is worried that this current illness may compromise his heart. He denies any increased pedal edema, recently on an increased dose of Lasix per his primary care. History of some COVID vaccines, no flu vaccine this year. Related Data Home Medications Medication Instructions Recorded Confirmed lidocaine 4 % topical patch 2 patch topical DAILY 01/10/23 01/10/23 Previous Rx's Medication Instructions Recorded apixaban 2.5 mg tablet 2.5 mg PO BID #180 tabs 02/01/23 furosemide 20 mg tablet 10 mg (1/2 x 20 mg) PO DAILY #45 02/01/23 tabs metoprolol succinate 50 mg 50 mg PO DAILY #90 tabs 02/01/23 tablet,extended release 24 hr potassium chloride 20 mEq 20 meq PO DAILY #90 tabs 02/01/23 tablet,extended release prasugrel 10 mg tablet 10 mg PO DAILY #90 tabs 02/01/23 sacubitril 49 mg-valsartan 51 mg 1 tab PO BID #180 tabs 02/01/23 tablet (Entresto) spironolactone 25 mg tablet 25 mg PO DAILY #90 tabs 02/01/23 acetaminophen 300 mg-codeine 60 mg 1 tab PO Q6H PRN pain #40 tabs 02/03/23 tablet leuprolide (3 month) 22.5 mg (3 22.5 mg IM [id number] #1 ea 02/10/23 month) intramuscular syringe kit (Lupron Depot) atorvastatin 40 mg tablet 40 mg PO BEDTIME #90 tabs 04/03/23 pantoprazole 40 mg tablet,delayed 40 mg PO DAILY #90 tabs 04/03/23 release quetiapine 25 mg tablet 25 mg PO BEDTIME #90 tabs 04/03/23 metformin 500 mg tablet,extended 500 mg PO DAILY #90 tabs 04/10/23 release 24 hr tamsulosin 0.4 mg capsule 0.8 mg (2 x 0.4 mg) PO BEDTIME 04/10/23 #180 caps Allergies Allergy/AdvReac Type Severity Reaction Status Date / Time venom-honey bee Allergy Unknown Verified 05/31/23 12:03 [BEE VENOM (HONEY BEE)] abiraterone [From Zytiga] AdvReac Severe Hypokalemic Verified 05/31/23 12:03 ventricular fibrillation arrest lisinopril [LISINOPRIL] AdvReac Mild COUGH Verified 05/31/23 12:03 Review of Systems <Xi Youngblood PA-C - Last Filed: 05/31/23 14:26> Review of Systems ROS Unobtainable: All systems reviewed & are unremarkable except as noted in HPI and below Patient History <Xi Youngblood PA-C - Last Filed: 05/31/23 14:26> Medical History Allergic rhinitis Bilateral knee pain BPH (benign prostatic hyperplasia) Chicken pox Chronic atrial fibrillation Colon polyps (Unknown) Dysfunction of both eustachian tubes (07/14/15) Erectile dysfunction Essential hypertension (02/12/15) Hemorrhage, intracranial, without coma, traumatic HFrEF (heart failure with reduced ejection fraction) History of colonic polyps History of heart attack (~2018) Kidney stones (~2013) Lumbar radiculopathy, chronic Major depression Obstructive sleep apnea syndrome (07/14/15) Ocular migraine (10/21/16) Prostate cancer Right ear impacted cerumen Rubella Tinnitus of both ears (~2013) Surgical History Anesthesia History of coronary artery stent placement (~2019) Hx of mitral valve repair (04/2008) Hx of right knee surgery (12/2009) Family History Father Diabetes mellitus History of heart disease Hyperlipidemia Hypertension Mother Cancer Diabetes mellitus History of heart disease Hyperlipidemia Hypertension Grandfather Diabetes mellitus Grandmother No problems noted. Grandfather No problems noted. Social History Smoking Status: Former smoker alcohol intake: never substance use type: does not use Smoking Status: Former smoker alcohol intake frequency: holidays/special occasions only Substance Use Type: does not use Exam <Xi Youngblood PA-C - Last Filed: 05/31/23 14:26> Narrative Exam Narrative: GENERAL: 73 year old patient appears stated age. Well-developed patient, in no acute distress. NEURO: AOx3. HEAD: Atraumatic. Normocephalic. EYES: Pupils equal round and reactive. Extraocular motions intact. No scleral icterus. No injection or drainage. ENT: Nose without bleeding or purulent drainage. Throat without erythema, tonsillar hypertrophy or exudate. Airway patent. NECK: Trachea midline. Non tender CARDIOVASCULAR: Irregular rhythm RESPIRATORY: Clear to auscultation. Breath sounds equal bilaterally. No wheezes, rales, or rhonchi. EXTREMITIES: No edema or joint tenderness. SKIN: No rash or erythema of visible areas Initial Vital Signs Initial Vital Signs: Vital Signs Temperature 97.0 F L 05/31/23 11:59 Pulse Rate 60 05/31/23 11:59 Respiratory Rate 14 05/31/23 11:59 Blood Pressure 139/81 05/31/23 11:59 Pulse Oximetry 98 05/31/23 11:59 Oxygen Delivery Method Room Air 05/31/23 11:59 <sIis Mooney MD - Last Filed: 05/31/23 14:44> Initial Vital Signs Initial Vital Signs: Vital Signs Temperature 97.0 F L 05/31/23 11:59 Pulse Rate 60 05/31/23 11:59 Respiratory Rate 14 05/31/23 11:59 Blood Pressure 139/81 05/31/23 11:59 Pulse Oximetry 98 05/31/23 11:59 Oxygen Delivery Method Room Air 05/31/23 11:59 Course <Xi Youngblood PA-C - Last Filed: 05/31/23 14:26> Orders Ordered: ED Orders 05/31/23 12:37 XR chest 2V Stat Vital Signs Vital signs: Vital Signs - 8 hr 05/31/23 11:59 Temperature 97.0 F L Pulse Rate 60 Respiratory Rate 14 Blood Pressure 139/81 Pulse Oximetry 98 Oxygen Delivery Method Room Air <Isis Mooney MD - Last Filed: 05/31/23 14:44> Orders Ordered: ED Orders 05/31/23 12:37 XR chest 2V Stat Vital Signs Vital signs: Vital Signs - 8 hr 05/31/23 11:59 Temperature 97.0 F L Pulse Rate 60 Respiratory Rate 14 Blood Pressure 139/81 Pulse Oximetry 98 Oxygen Delivery Method Room Air MDM - URI/Sore Throat <Xi Youngblood PA-C - Last Filed: 05/31/23 14:26> Imaging Data Chest x-ray: Radiologist's Impression: PROCEDURE: XR CHEST 2V INDICATIONS: cough, SOB, hx poor cardiac function TECHNIQUE: 2 views of the chest were acquired. COMPARISON: [facility], , XR CHEST 1V, 06/10/2021, 20:03. FINDINGS: Surgical changes and devices: Median sternotomy. Lungs and pleura: Lungs are clear. No pleural effusions or pneumothorax. Mediastinum: Mediastinal contours are normal. Heart size is normal. Bones and chest wall: No suspicious bony abnormalities. Soft tissues appear unremarkable. IMPRESSION: No acute cardiopulmonary abnormality is seen. Dictated by: Cele Rod M.D. on 05/31/2023 at 12:58 Approved by: Cele Rod M.D. 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 Patient did not become acutely dyspneic or developed chest pain. Chest x-ray without evidence of pneumonia or fluid overload. Respiratory viral PCR testing not completed as patient has been ill for 5 days and results are unlikely to slip box changer. Patient would not be a candidate for antivirals against COVID regardless due to his current medication list. Discussed findings, which are reassuring, with the patient. Patient is not interested in [id number] symptom management medications and we will continue hydration, tea, rest. Return precautions advised. Patient's symptoms improved over duration of stay with above-stated therapies. Findings and discharge diagnosis discussed with patient/family followed by verbalization of understanding Return precautions discussed with patient/family whom verbalize understanding of diagnosis and plan Discharge Plan Departure Patient Disposition: Home Clinical Impression: Upper respiratory infection Qualifiers: URI type: unspecified viral URI Qualified Code(s): J06.9 - Acute upper respiratory infection, unspecified Instructions: DI for Viral Upper Respiratory Infection -- Adult Activity Restrictions/Additional Instructions: *You have been diagnosed with viral upper respiratory infection. Your oxygen level remained normal at 98-100% while walking. Your chest x-ray does not show any evidence of pneumonia or fluid overload. I would advised continued rest, hydration, tylenol for fever/aches, honey for sore throat/cough. Antibiotics are not indicated for this diagnosis. Most viral infections will resolve in 7-10 days, although a lingering cough is common for up to 3 weeks. If fever lasts >5 days or if you develop difficulty breathing or other concerning symptoms, please seek care at walk-in clinic or ER. *What to do: *Please continue to take your regular medications as directed. [ ] New medication prescriptions sent to your pharmacy: [ ] [ ] New medication written as a paper prescription [x] No new medications given *Please follow up with your primary care provider in 2-3 days, call for an appointment. Let them know you were seen in the Emergency Department and that we ask that you be seen in follow up. We will electronically transmit a record of today's note if your PCP is in our system *If you do not have a primary care provider please contact the [facility] Resource line at [phone]. They will ask some questions about your medical history and help get you set up with a doctor in the community. *Return to Emergency Department if you should have any new, worsening or concerning symptoms, such as [fever greater than 101 F, shaking chills, worsening pain, persistent vomiting or other concerning symptoms]. Prescriptions: No Action furosemide 20 mg tablet 10 mg PO DAILY Qty: 45 3RF metoprolol succinate 50 mg tablet extended release 24 hr 50 mg PO DAILY Qty: 90 3RF potassium chloride 20 mEq tablet extended release 20 meq PO DAILY Qty: 90 3RF prasugrel 10 mg tablet 10 mg PO DAILY Qty: 90 3RF Entresto 49-51 mg tablet 1 tab PO BID Qty: 180 3RF spironolactone 25 mg tablet 25 mg PO DAILY Qty: 90 3RF apixaban 2.5 mg tablet 2.5 mg PO BID Qty: 180 3RF acetaminophen-codeine 300-60 mg tablet 1 tab PO Q6H PRN (Reason: pain) Qty: 40 2RF Lupron Depot (3 month) 22.5 mg syringe kit 22.5 mg IM [id number] Qty: 1 2RF quetiapine 25 mg tablet 25 mg PO BEDTIME Qty: 90 3RF atorvastatin 40 mg tablet 40 mg PO BEDTIME Qty: 90 3RF pantoprazole 40 mg tablet,delayed release (DR/EC) 40 mg PO DAILY Qty: 90 3RF tamsulosin 0.4 mg capsule 0.8 mg PO BEDTIME Qty: 180 3RF metformin 500 mg tablet extended release 24 hr 500 mg PO DAILY Qty: 90 3RF lidocaine 4 % adhesive patch,medicated 2 patch topical DAILY Referrals: Darius Duarte MD [Primary Care Provider] - Stand Alone Forms: Patient Portal/API ED Sign-out <Isis Mooney MD - Last Filed: 05/31/23 14:44> Cosign ED Attending Cosignature Attestation: I did not see this patient. I was available all times for consultation.
== END 2023-05-31 13:12 | disposition home or self-care (01) ==
PROVIDERS: Emergency Provider Physician Assistant; PCP Internal Medicine
DX: J06.9 Acute upper respiratory infection, unspecified (principal)
CPT/HCPCS: 71046; 99283

== ENCOUNTER → 2023-06-29 14:40 | Outpatient (CLI) | payer MEDICARE, OTHER, SELFPAY ==
[2023-06-29 15:27] LABS: Hematocrit 40.8 % (41-53); Hemoglobin 13.9 g/dL (13.5-17.5); Mean Corpuscular HGB Conc 34.1 % (30-36); Platelet Count 162 X10^3/uL (150-400); Red Blood Cell Count 4.81 X10^6/uL (4.5-5.9); Red Cell Distribution Width 14.5 % (11.6-14.8); White Blood Cell Count 5.7 X10^3/uL (4.5-11.0)
[2023-06-29 15:49] LABS: Hemoglobin A1C% w Est Avg Glu 6.1 % (4.0-6.0)
[2023-06-29 16:00] LABS: Aspartate Aminotransferase 19 IU/L (17-59); BUN Creatinine Ratio 22.4 (6-22); Blood Urea Nitrogen 19 mg/dL (9-20); Calcium 9.1 mg/dL (8.4-10.2); Carbon Dioxide 28 mmol/L (22-32); Chloride 102 mmol/L (98-107); Cholesterol 68 mg/dL (140-199); Estimated Glomerular Filt Rate > 60 mL/min (>60); Glucose 158 mg/dL (80-110); HDL Cholesterol 27 mg/dL (40-60); HEMOLYSIS < 15 (0-50); LDL Cholesterol Calculated 21 mg/dL (<100); Potassium 4.5 mmol/L (3.4-5.1); Sodium 140 mmol/L (137-145); Triglycerides 99 mg/dL (35-150)
[2023-06-29 20:11] LABS: Creatinine Urine Random 215.8 mg/dL
[2023-06-29 20:15] LABS: Microalbumi Creatinin Ratio Ur 3.2 ug/mg CR (<30); Microalbumin Urine Random 0.7 mg/dL (0-1.6)
== END ==
PROVIDERS: PCP Internal Medicine; Referring Provider Internal Medicine; Visit Provider Internal Medicine
DX: E11.9 Type 2 diabetes mellitus without complications (principal); E11.69 Type 2 diabetes mellitus with other specified complication; I48.20 Chronic atrial fibrillation, unspecified; E78.5 Hyperlipidemia, unspecified
CPT/HCPCS: 80048; 80061; 82043; 82570; 83036; 84450; 85027

== ENCOUNTER 2023-08-14 14:15 | Outpatient (RCR) | payer MEDICARE, OTHER, SELFPAY | END 2023-08-14 16:15 | LOC: CAR 14:15 | PROVIDERS: PCP Internal Medicine; Referring Provider Internal Medicine; Visit Provider Internal Medicine | DX: I50.20 Unspecified systolic (congestive) heart failure (principal); I48.20 Chronic atrial fibrillation, unspecified | CPT/HCPCS: 93798 ==

== ENCOUNTER 2024-01-23 10:01 | Emergency (ER) | payer MEDICARE, OTHER, SELFPAY ==
[2024-01-23 10:10] VITALS: BP 114/78; PULSE 58; RESP 14; TEMP 36.7; O2SAT 99; BMI 26.5
--- NOTE | 2024-01-23 10:10 | DI.RAD.S_ITS ---
PROCEDURE: XR ELBOW LT MIN 3V INDICATIONS: fall onto left elbow, pain rad distally to hand TECHNIQUE: 4 views of the elbow were acquired. COMPARISON: None. FINDINGS: Bones: There is a nondisplaced fracture at the radial head/neck. Background mild degenerative changes. Soft tissues: Joint effusion is present. IMPRESSION: Nondisplaced proximal radial fracture. Joint effusion. Dictated by: Praveen Gomez M.D. on 01/23/2024 at 11:33 Approved by: Praveen Gomez M.D. on 01/23/2024 at 11:34
--- NOTE | 2024-01-23 10:10 | DI.RAD.S_ITS ---
PROCEDURE: XR FOREARM LT 2V INDICATIONS: fall onto left elbow, pain rad distally to hand TECHNIQUE: 2 views of the forearm were acquired. COMPARISON: None. FINDINGS: Bones: No acute displaced fracture of the ulnar or radial shafts. There is an age-indeterminate small bone fragment adjacent to the ulnar styloid. Soft tissues: No suspicious calcifications IMPRESSION: No acute displaced fracture of the radial shaft or ulnar shaft. Small age-indeterminate tiny bone fragment adjacent to the ulnar styloid. Elbow findings are separately dictated. Dictated by: Praveen Gomez M.D. on 01/23/2024 at 11:34 Approved by: Praveen Gomez M.D. on 01/23/2024 at 11:34
--- NOTE | 2024-01-23 11:25 | ED_ITS ---
HPI - General Adult General Chief complaint: Extremity Injury, Upper Stated complaint: right arm pain Time Seen by Provider: 01/23/24 11:19 Source: patient Mode of arrival: Ambulatory History of Present Illness HPI narrative: Patient is a 73-year-old male here for evaluation of the left elbow injury. Despite the stated complaint of right arm pain patient hurt his left elbow. He states he slipped and fell on his driveway landed on his left elbow. No other injuries from the event. They had a sling at home which he placed his arm in prior to arrival. He reports no elbow pain and no wrist pain. Did not hit his head. Related Data Home Medications Medication Instructions Recorded Confirmed apixaban 5 mg tablet (Eliquis) 5 mg PO BID 06/20/23 07/06/23 clopidogrel 75 mg tablet 75 mg PO DAILY 06/20/23 07/06/23 furosemide 40 mg tablet 40 mg PO DAILY 06/20/23 07/06/23 sacubitril 97 mg-valsartan 103 mg 1 tab PO BID 06/20/23 07/06/23 tablet (Entresto) digoxin 125 mcg (0.125 mg) tablet 125 mcg PO DAILY 07/06/23 07/06/23 metoprolol succinate 100 mg 100 mg PO BID 07/06/23 07/06/23 tablet,extended release 24 hr [id number] 3.5 1 drp EYE-BOTH Q12H 07/06/23 07/06/23 mg/mL-10,000 unit/mL-0.1% eye drops spironolactone 50 mg tablet 50 mg PO DAILY 07/06/23 07/06/23 Previous Rx's Medication Instructions Recorded potassium chloride 20 mEq 20 meq PO DAILY #90 tabs 02/01/23 tablet,extended release atorvastatin 40 mg tablet 40 mg PO BEDTIME #90 tabs 04/03/23 metformin 500 mg tablet,extended 500 mg PO DAILY #90 tabs 04/10/23 release 24 hr tamsulosin 0.4 mg capsule 0.8 mg (2 x 0.4 mg) PO BEDTIME 04/10/23 #180 caps leuprolide (3 month) 22.5 mg (3 22.5 mg IM [id number] #1 ea 07/03/23 month) intramuscular syringe kit (Lupron Depot) quetiapine 25 mg tablet 25 mg PO BEDTIME #90 tabs 11/20/23 Allergies Allergy/AdvReac Type Severity Reaction Status Date / Time venom-honey bee Allergy Unknown Verified 01/23/24 10:13 [BEE VENOM (HONEY BEE)] lisinopril [LISINOPRIL] AdvReac Mild COUGH Verified 01/23/24 10:13 Review of Systems Review of Systems Narrative: See HPI Patient History Medical History History of colonic polyps Hemorrhage, intracranial, without coma, traumatic Chronic atrial fibrillation Major depression HFrEF (heart failure with reduced ejection fraction) Lumbar radiculopathy, chronic Prostate cancer Rubella Chicken pox Kidney stones (~2013) History of heart attack (~2018) Allergic rhinitis Bilateral knee pain BPH (benign prostatic hyperplasia) Erectile dysfunction Tinnitus of both ears (~2013) Colon polyps (Unknown) Ocular migraine (10/21/16) Obstructive sleep apnea syndrome (07/14/15) Dysfunction of both eustachian tubes (07/14/15) Essential hypertension (02/12/15) Surgical History Anesthesia History of coronary artery stent placement (~2018) Hx of right knee surgery (12/2009) Hx of mitral valve repair (04/2008) Family History Father Diabetes mellitus History of heart disease Hyperlipidemia Hypertension Mother Cancer Diabetes mellitus History of heart disease Hyperlipidemia Hypertension Grandfather Diabetes mellitus Grandmother No problems noted. Grandfather No problems noted. Social History Smoking Status: Former smoker alcohol intake: never substance use type: does not use Smoking Status: Former smoker alcohol intake frequency: holidays/special occasions only Substance Use Type: does not use Exam Initial Vital Signs Initial Vital Signs: Vital Signs Temperature 98.1 F 01/23/24 10:10 Pulse Rate 58 L 01/23/24 10:10 Respiratory Rate 14 01/23/24 10:10 Blood Pressure 114/78 01/23/24 10:10 Pulse Oximetry 99 01/23/24 10:10 Oxygen Delivery Method Room Air 01/23/24 10:10 Const General: cooperative and healthy appearing Cardio Pulses: radial pulses present on the left Skin General: no rashes or lesions noted Neuro General: patient alert, patient awake, patient oriented x3 and moves all ex tremities Sensory Exam: no sensory deficits noted Extrem Other: Discomfort with palpation in the left. His left wrist and left shoulder are unremarkable. Procedures Orthopedic Splinting/Casting Injury #1: Side: left Upper Extremity Injury Location: elbow Upper Extremity Immobilizer: posterior splint Post splinting neuro exam: no change Post splinting vascular exam: no change Placed by: Nursing Course Orders Ordered: ED Orders 01/23/24 10:10 XR elbow LT min 3V Stat XR forearm LT 2V Stat Vital Signs Vital signs: Vital Signs - 8 hr 01/23/24 10:10 Temperature 98.1 F Pulse Rate 58 L Respiratory Rate 14 Blood Pressure 114/78 Pulse Oximetry 99 Oxygen Delivery Method Room Air Medical Decision Making Imaging Data Extremity x-ray #1: Radiologist's Impression: PROCEDURE: XR ELBOW LT MIN 3V INDICATIONS: fall onto left elbow, pain rad distally to hand TECHNIQUE: 4 views of the elbow were acquired. COMPARISON: None. FINDINGS: Bones: There is a nondisplaced fracture at the radial head/neck. Background mild degenerative changes. Soft tissues: Joint effusion is present. IMPRESSION: Nondisplaced proximal radial fracture. Joint effusion. Extremity x-ray #2: Radiologist's Impression: PROCEDURE: XR FOREARM LT 2V INDICATIONS: fall onto left elbow, pain rad distally to hand TECHNIQUE: 2 views of the forearm were acquired. COMPARISON: None. FINDINGS: Bones: No acute displaced fracture of the ulnar or radial shafts. There is an age-indeterminate small bone fragment adjacent to the ulnar styloid. Soft tissues: No suspicious calcifications IMPRESSION: No acute displaced fracture of the radial shaft or ulnar shaft. Small age- indeterminate tiny bone fragment adjacent to the ulnar styloid. Elbow findings are separately dictated. MDM Narrative Medical decision making narrative: Patient was neurovascularly intact. He does proximal radius fracture. He was placed in a posterior splint. Was given care instructions and return precautions follow-up instructions. He expressed understanding and agreement. Discharge Plan Departure Patient Disposition: Home Clinical Impression: Elbow fracture, left Instructions: How to Use a Sling, DI for Elbow Fracture, How to Take Care of Your Splint Activity Restrictions/Additional Instructions: Continue to take all of your medications as directed. They splint that was placed today does need to be treated like a cast. You need to keep it clean and keep it dry. You are going to need follow-up with orthopedic surgery. You can contact them with the number provided below for this follow-up. Return to the emergency department for new symptoms. Prescriptions: No Action potassium chloride 20 mEq tablet extended release 20 meq PO DAILY Qty: 90 3RF atorvastatin 40 mg tablet 40 mg PO BEDTIME Qty: 90 3RF tamsulosin 0.4 mg capsule 0.8 mg PO BEDTIME Qty: 180 3RF metformin 500 mg tablet extended release 24 hr 500 mg PO DAILY Qty: 90 3RF Lupron Depot (3 month) 22.5 mg syringe kit 22.5 mg IM [id number] Qty: 1 2RF quetiapine 25 mg tablet 25 mg PO BEDTIME Qty: 90 3RF neomycin-polymyxin B-dexameth 3.5mg/mL-10,000 unit/mL-0.1 % drops,suspension 1 drp EYE-BOTH Q12H Patient Comments: [NO ORIGINAL SIG] spironolactone 50 mg tablet 50 mg PO DAILY digoxin 125 mcg (0.125 mg) tablet 125 mcg PO DAILY clopidogrel 75 mg tablet 75 mg PO DAILY Entresto 97-103 mg tablet 1 tab PO BID furosemide 40 mg tablet 40 mg PO DAILY Eliquis 5 mg tablet 5 mg PO BID metoprolol succinate 100 mg tablet extended release 24 hr 100 mg PO BID Referrals: Darius Duarte MD [Primary Care Provider] - Surya Paez MD [Physician] - Stand Alone Forms: Patient Portal/API
[2024-01-23 11:54] VITALS: BP 125/75; PULSE 51; RESP 16; O2SAT 98
== END 2024-01-23 11:55 | disposition home or self-care (01) ==
PROVIDERS: Emergency Provider Emergency Medicine; PCP Internal Medicine
DX: S52.102A Unspecified fracture of upper end of left radius, initial encounter for closed fracture (principal); W01.0XXA Fall on same level from slipping, tripping and stumbling without subsequent striking against object, initial encounter; Z79.01 Long term (current) use of anticoagulants
CPT/HCPCS: 29105; 73080; 73090; 99283; 99284

== ENCOUNTER → 2024-01-29 16:24 | Outpatient (CLI) | payer MEDICARE, OTHER, SELFPAY ==
[2024-01-29 17:25] LABS: Hemoglobin 15.6 g/dL (13.5-17.5); Mean Corpuscular HGB Conc 34.6 % (30-36); Mean Corpuscular Hemoglobin 30.8 PG (26-34); Platelet Count 151 X10^3/uL (150-400); Red Blood Cell Count 5.05 X10^6/uL (4.5-5.9); Red Cell Distribution Width 13.8 % (11.6-14.8); White Blood Cell Count 6.3 X10^3/uL (4.5-11.0)
[2024-01-29 17:39] LABS: Hemoglobin A1C% w Est Avg Glu 6.2 % (4.0-6.0)
[2024-01-29 17:45] LABS: Alanine Aminotransferase 16 IU/L (<50); Albumin 4.4 g/dL (3.5-5.0); Albumin Globulin Ratio 1.7 (1.0-2.8); Alkaline Phosphatase 85 U/L (38-126); Aspartate Aminotransferase 26 IU/L (17-59); BUN Creatinine Ratio 25.9 (6-22); Bilirubin Total 1.3 mg/dL (0.2-1.3); Blood Urea Nitrogen 21 mg/dL (9-20); Calcium 9.6 mg/dL (8.4-10.2); Carbon Dioxide 28 mmol/L (22-32); Chloride 102 mmol/L (98-107); Cholesterol 73 mg/dL (140-199); Estimated Glomerular Filt Rate > 60 mL/min (>60); Globulin 2.6 g/dL (1.7-4.1); Glucose 138 mg/dL (80-110); HDL Cholesterol 31 mg/dL (40-60); HEMOLYSIS < 15 (0-50); LDL Cholesterol Calculated 18 mg/dL (<100); Potassium 4.2 mmol/L (3.4-5.1); Sodium 137 mmol/L (137-145); Triglycerides 122 mg/dL (35-150)
== END ==
LOC: LAB 16:25
PROVIDERS: PCP Internal Medicine; Referring Provider Internal Medicine; Visit Provider Internal Medicine
DX: I50.20 Unspecified systolic (congestive) heart failure (principal); E11.69 Type 2 diabetes mellitus with other specified complication; E78.5 Hyperlipidemia, unspecified
CPT/HCPCS: 36415; 80053; 80061; 83036; 85027

== ENCOUNTER → 2024-07-30 14:57 | Outpatient (CLI) | payer MEDICARE, OTHER, SELFPAY ==
[2024-07-30 15:40] LABS: Hemoglobin A1C% w Est Avg Glu 7.8 % (4.0-6.0)
[2024-07-30 15:45] LABS: Creatinine Urine Random 169.17 mg/dL
[2024-07-30 15:50] LABS: Microalbumin Urine Random 0.8 mg/dL (0-1.6)
[2024-07-30 15:51] LABS: Aspartate Aminotransferase 16 IU/L (17-59); Blood Urea Nitrogen 30 mg/dL (9-20); Calcium 9.9 mg/dL (8.4-10.2); Carbon Dioxide 23 mmol/L (22-32); Chloride 101 mmol/L (98-107); Cholesterol 149 mg/dL (140-199); Estimated Glomerular Filt Rate > 60 mL/min (>60); Glucose 196 mg/dL (80-110); HDL Cholesterol 27 mg/dL (40-60); HEMOLYSIS < 15 (0-50); LDL Cholesterol Calculated 69 mg/dL (<100); Sodium 135 mmol/L (137-145); Triglycerides 264 mg/dL (35-150)
[2024-07-30 15:52] LABS: Potassium 5.6 mmol/L (3.4-5.1)
== END ==
LOC: LAB 14:58
PROVIDERS: PCP Internal Medicine; Referring Provider Internal Medicine; Visit Provider Internal Medicine
DX: E11.69 Type 2 diabetes mellitus with other specified complication (principal); E78.5 Hyperlipidemia, unspecified; I50.20 Unspecified systolic (congestive) heart failure
CPT/HCPCS: 36415; 80048; 80061; 82043; 82570; 83036; 84450

== ENCOUNTER → 2024-10-10 14:53 | Outpatient (CLI) | payer MEDICARE, OTHER, SELFPAY ==
[2024-10-10 15:45] LABS: BUN Creatinine Ratio 29.5 (6-22); Blood Urea Nitrogen 33 mg/dL (9-20); Calcium 8.9 mg/dL (8.4-10.2); Carbon Dioxide 24 mmol/L (22-32); Chloride 100 mmol/L (98-107); Estimated Glomerular Filt Rate > 60 mL/min (>60); Glucose 191 mg/dL (70-99); HEMOLYSIS < 15 (0-50); Potassium 4.9 mmol/L (3.4-5.1); Sodium 132 mmol/L (137-145)
== END ==
PROVIDERS: PCP Internal Medicine; Referring Provider Internal Medicine; Visit Provider Internal Medicine
DX: I50.20 Unspecified systolic (congestive) heart failure (principal); I49.8 Other specified cardiac arrhythmias; I48.20 Chronic atrial fibrillation, unspecified
CPT/HCPCS: 36415; 80048; 83735

== ENCOUNTER → 2024-11-26 16:03 | Outpatient (CLI) | payer MEDICARE, OTHER, SELFPAY ==
[2024-11-26 17:23] LABS: Hematocrit 47.3 % (41-53); Hemoglobin 16.1 g/dL (13.5-17.5); Mean Corpuscular HGB Conc 34.0 % (30-36); Mean Corpuscular Hemoglobin 31.7 PG (26-34); Mean Corpuscular Volume 93.3 fL (80-100); Platelet Count 132 X10^3/uL (150-400)
[2024-11-26 17:46] LABS: Alanine Aminotransferase 14 IU/L (<50); Albumin 4.3 g/dL (3.5-5.0); Albumin Globulin Ratio 1.9 (1.0-2.8); Alkaline Phosphatase 82 U/L (38-126); Blood Urea Nitrogen 35 mg/dL (9-20); Calcium 9.5 mg/dL (8.4-10.2); Carbon Dioxide 22 mmol/L (22-32); Chloride 103 mmol/L (98-107); Estimated Glomerular Filt Rate > 60 mL/min (>60); Globulin 2.3 g/dL (1.7-4.1); Glucose 113 mg/dL (70-99); HEMOLYSIS < 15 (0-50); Potassium 4.7 mmol/L (3.4-5.1); Sodium 135 mmol/L (137-145); Total Protein 6.6 g/dL (6.3-8.2)
[2024-11-26 17:51] LABS: Hemoglobin A1C% w Est Avg Glu 6.3 % (4.0-6.0)
[2024-11-26 18:18] LABS: Prostate Specific Antigen 0.866 ng/mL (0.10-4.00)
== END ==
PROVIDERS: Urology; PCP Internal Medicine; Referring Provider Internal Medicine; Visit Provider Internal Medicine
DX: C61 Malignant neoplasm of prostate (principal); E11.9 Type 2 diabetes mellitus without complications; I48.20 Chronic atrial fibrillation, unspecified
CPT/HCPCS: 80053; 83036; 84153; 85027

== ENCOUNTER → 2025-02-25 09:21 | Outpatient (CLI) | payer MEDICARE, OTHER, SELFPAY ==
--- NOTE | 2025-02-27 12:30 | DIAB.FU ---
Diabetes Education Class Series: Diabetes Physiology and Medications Name: Ravindra Wise Date: 02/25/25 Time: [id number] Dx: Type II Diabetes [place] presents for class 2. Class 1 canceled due to not having enough participants. Reports interest in CGM. Had questions today about how medication impact BG. Class topics covered: ? Diabetes pathophysiology ? Discuss different types of diabetes ? Review criteria for diagnosing diabetes ? Review HgA1c measurement and associated blood sugars ? Review blood sugar monitoring safety, technique, and goals ? Discuss ways to reduce complications associated with diabetes, includes microvascular and macrovascular complications ? Review diabetes medications types, action, and side effects ? Health care visits recommended for people with T2DM ? Immunization recommended for people with T2DM Follow-up: Diabetes Lifestyle and Ongoing Support Class next week Jody Ashton RDN, [facility] Certified Diabetes Care and Endoscopic Technician P: [phone] Thank you for this referral
== END ==
LOC: DIET 09:22
PROVIDERS: PCP Internal Medicine; Referring Provider Internal Medicine
DX: E11.9 Type 2 diabetes mellitus without complications (principal); Z71.3 Dietary counseling and surveillance
CPT/HCPCS: G0109

== ENCOUNTER → 2025-03-04 09:19 | Outpatient (CLI) | payer MEDICARE, OTHER, SELFPAY ==
--- NOTE | 2025-03-11 13:51 | DIAB.FU ---
Diabetes Education Class Series: Diabetes Lifestyle Change and Ongoing Support Name: Ravindra Wise Date: 03/04/25 Time: [id number] Delmar presents for the last DM education class in this series. Reports being UTD on eye, dental exams, and lab work. Does not check his feet. Interested in personal CGM sample. Class topics covered: ? Discuss the difference between physical activity and exercise ? Determine physical activity benefits and impact on diabetes ? Review physical activity recommendations and safety ? Discuss emergency preparedness ? Discuss diabetes and emotions (diabetes burnout/distress) ? Review and practice stress management techniques ? Review support groups and community resources ? Discuss the role of family support in diabetes care ? What is going well? Challenges of diabetes? Follow-up: 1:1 visit follow-up in one week Jody Ashton RDN, [facility] Certified Diabetes Care and Senior Analyst [employer] P: [phone] Thank you for this referral
== END ==
LOC: DIET 09:20
PROVIDERS: PCP Internal Medicine; Referring Provider Internal Medicine
DX: E11.9 Type 2 diabetes mellitus without complications (principal); Z71.3 Dietary counseling and surveillance
CPT/HCPCS: G0108

== ENCOUNTER → 2025-03-06 09:18 | Outpatient (CLI) | payer MEDICARE, OTHER, SELFPAY ==
[2025-03-06 09:57] LABS: Hematocrit 41.8 % (41-53); Hemoglobin 13.8 g/dL (13.5-17.5); Mean Corpuscular HGB Conc 33.0 % (30-36); Mean Corpuscular Hemoglobin 27.3 PG (26-34); Mean Corpuscular Volume 82.8 fL (80-100); Platelet Count 150 X10^3/uL (150-400)
[2025-03-06 10:03] LABS: Hemoglobin A1C% w Est Avg Glu 6.6 % (4.0-6.0)
[2025-03-06 10:17] LABS: Alanine Aminotransferase 14 IU/L (<50); Albumin 4.3 g/dL (3.5-5.0); Albumin Globulin Ratio 1.9 (1.0-2.8); Alkaline Phosphatase 87 U/L (38-126); Blood Urea Nitrogen 26 mg/dL (9-20); Calcium 9.2 mg/dL (8.4-10.2); Carbon Dioxide 22 mmol/L (22-32); Chloride 104 mmol/L (98-107); Cholesterol 60 mg/dL (140-199); Estimated Glomerular Filt Rate > 60 mL/min (>60); Globulin 2.3 g/dL (1.7-4.1); Glucose 142 mg/dL (70-99); HDL Cholesterol 25 mg/dL (40-60); HEMOLYSIS 15 (0-50); Potassium 4.5 mmol/L (3.4-5.1); Sodium 137 mmol/L (137-145); Total Protein 6.6 g/dL (6.3-8.2); Triglycerides 128 mg/dL (35-150)
== END ==
PROVIDERS: PCP Internal Medicine; Referring Provider Internal Medicine; Visit Provider Internal Medicine
DX: I25.10 Atherosclerotic heart disease of native coronary artery without angina pectoris (principal); E11.69 Type 2 diabetes mellitus with other specified complication; E78.5 Hyperlipidemia, unspecified
CPT/HCPCS: 36415; 80053; 80061; 83036; 85027

== ENCOUNTER → 2025-03-11 13:53 | Outpatient (CLI) | payer MEDICARE, OTHER, SELFPAY ==
--- NOTE | 2025-03-11 14:16 | DIAB.FU ---
Follow-up Diabetes Education Assessment Name: Ravindra Wise Date: 03/11/25 Time: 155-230p Dx: Type II Diabetes Provider: Gerald Jacobsen presents for DM visit accompanied by , Jessica. Reports initial dx in 2020. Attended Dm classes, though first class was cancelled due to attendance. HgA1c up from previous at 6.6%, still in goal. Interested in CGm sample today. Other questions: Fasting benefits/risks Physical activity Often skipping lunch. Other meals seem balanced. Anthropometrics: Ht: 5'10 Wt: 175# 02/2025 181# 11/2024 184# 11/2024 Weight history: Physical Activity: Last visit reported walking 1-2 days per week >60 mins, biking 3 days per week x 35 min, wts 2x per week Self-Monitoring Blood Glucose: Interested in CGM sample. Already has downloaded CGM parish. Last Visit: Date Pre Post Pre Post Pre Post HS 12/13 146 8/4 84 134 8/7 184 H 12/21 106 140 11 170 8/13 106 173 8/14 94 146 Diabetes Medications: 25mg Jardiance Pertinent Labs: HgA1c: 7.8% 07/2024 6.3% 11/2024 6.6% 02/2025 Past Medical History: (Last Reviewed 12/19/24 @ 11:01 by Bharath Goss DO) Allergic rhinitis Anticoagulation monitoring, INR range 2-3 Bilateral knee pain BPH w urinary obs/LUTS Chicken pox Chronic atrial fibrillation Colon polyps (Unknown) Coronary artery disease Dysfunction of both eustachian tubes (07/14/15) Erectile dysfunction Essential hypertension (02/12/15) Hemorrhage, intracranial, without coma, traumatic HFrEF (heart failure with reduced ejection fraction) History of colonic polyps History of heart attack (~2018) Kidney stones (~2013) Lumbar radiculopathy, chronic Major depression Obstructive sleep apnea syndrome (07/14/15) Ocular migraine (10/21/16) Prostate cancer Rubella Tinnitus of both ears (~2013) Intervention: This participant was very receptive. Provided appropriate educational handouts. Discussed the following topics: CGM placement, precautions, education, benefits Impact of physical activity on BG Brief discussion about fasting diets Created SMART goals for patient self-care and success. Goals: Try adding veggies to hummus- not discussed Try 10 min walks after dinner- in progress Wear CGM sample - new Follow-up: ALBA KAUFFMAN follow-up in 2-3 weeks Jody Ashton RDN, DALY Certified Diabetes Care and Safety And Security Manager P: [phone] Thank you for this referral
== END ==
LOC: DIET 13:54
PROVIDERS: PCP Internal Medicine; Referring Provider Internal Medicine
DX: E11.9 Type 2 diabetes mellitus without complications (principal); Z71.3 Dietary counseling and surveillance; Z79.84 Long term (current) use of oral hypoglycemic drugs
CPT/HCPCS: G0108

== ENCOUNTER → 2025-03-27 12:44 | Outpatient (CLI) | payer MEDICARE, OTHER, SELFPAY ==
--- NOTE | 2025-04-25 10:59 | DIAB.MNTFU ---
Follow-up Diabetes Medical Nutrition Therapy Assessment Name: Ravindra Wise Date: 03/27/25 Time: 1-145p Dx: Type II Diabetes [place] presents for DM visit. Reports initial dx in 2020. Wore CGM sample. Found this helpful, but not interested in ongoing use necessarily. Open to resources for this though. Noticed most elevations after breakfast, which he always felt was healthy. Need some ideas on breakfast changes. Also, needing some ideas for holiday eating. Anthropometrics: Ht: 5'10 Wt: 172# 03/2025 175# 02/2025 181# 11/2024 184# 11/2024 Weight history: Physical Activity: 30 min walks more frequently, but does not notice a reduction in BG. Self-Monitoring Blood Glucose: Reports indicate some elevations after meals, overall meeting TIR goals. TIR: 0% very high 16% high 84% in range 0% lwo or very low avmg/dl GMI: 6.8% std dev: 34mg/dl variance: 23.4% Last Visit: Date Pre Post Pre Post Pre Post HS 12/13 146 8/4 84 134 8/7 184 H 12/21 106 140 12/23 170 12/25 106 173 12/26 94 146 Diabetes Medications: 25mg Jardiance Pertinent Labs: HgA1c: 7.8% 07/2024 6.3% 11/2024 6.6% 02/2025 Past Medical History: (Last Reviewed 01/16/25 @ 09:24 by Darius Duarte MD) Allergic rhinitis Anticoagulation monitoring, INR range 2-3 Bilateral knee pain BPH w urinary obs/LUTS Chicken pox Chronic atrial fibrillation Colon polyps (Unknown) Coronary artery disease Dysfunction of both eustachian tubes (07/14/15) Erectile dysfunction Essential hypertension (02/12/15) Hemorrhage, intracranial, without coma, traumatic HFrEF (heart failure with reduced ejection fraction) History of colonic polyps History of heart attack (~2018) Kidney stones (~2013) Lumbar radiculopathy, chronic Major depression Obstructive sleep apnea syndrome (07/14/15) Ocular migraine (10/21/16) Prostate cancer Rubella Tinnitus of both ears (~2013) Nutrition Rx: Carbohydrates: Meal:45gSnack:15-30g Nutrition Diagnosis: - Nutrition and food related knowledge deficit r/t needing more ideas for breakfasts and holiday eating aeb pt report and elevated postprandial CGM results- new Intervention: This participant was very receptive. Provided appropriate educational handouts. Discussed the following topics: CGM results and trends Breakfast ideas with more protein Holiday eating tips: eating in moderation, movement after meal, Bringing veggies to holiday meals, choosing protein, spreading out CHO intake Created SMART goals for patient self-care and success. Goals: Wear CGM sample - met Try a new breakfast- new Follow-up: ALBA KAUFFMAN follow-up elgin Ashton RDN, DALY Certified Diabetes Care and Lathe Machine Operator P: [phone] Thank you for this referral
== END ==
LOC: DIET 12:50
PROVIDERS: PCP Internal Medicine; Referring Provider Internal Medicine
DX: E11.9 Type 2 diabetes mellitus without complications (principal); Z71.3 Dietary counseling and surveillance; Z79.84 Long term (current) use of oral hypoglycemic drugs
CPT/HCPCS: 97803